=== PATIENT | female | born 1945 | race African-American/Black ===

== ENCOUNTER 2019-12-19 09:14 | Outpatient (CLI) | payer MEDICARE, OTHER, SELFPAY ==
--- NOTE | 2019-12-19 | ECHO_ITS ---
Patient Info Name: Lizy Simmons Age: 74 years : 1945 Gender: Female Ht: 62 in Wt: 200 lbs BSA: 2.04 m2 HR: 85 bpm BP: 156 / 73 mmHg Technical Quality: Fair Exam Date: 12/19/2019 10:15 AM Exam Location: [facility] Patient Status: Outpatient Admit Date: 12/19/2019 Staff Ordering Physician: Abilio Esquivel MD Clinical Documentation Specialist: Danika Hernandez RDCS Attending Provider: Abilio Esquivel MD Referring Physician: Alvin BASILIO; Exam Type: CA echo doppler color flow Study Info Indications I10 - Essential (primary) hypertension Complete two-dimensional, color flow and Doppler transthoracic echocardiogram is performed. Summary 1. Left ventricular chamber dimension is normal. 2. Ventricular septum is sigmoid shaped. 3. Mild resting left ventricular outflow tract obstruction with peak gradient 24 mmHg and mean gradient 14 mmHg. 4. Left ventricular systolic function is normal, estimated at 65-70%. 5. There is mildly increased left ventricular wall thickness. 6. The left ventricular diastolic function is grade I diastolic dysfunction. 7. There is moderate aortic valve sclerosis. 8. There is moderate aortic valve stenosis based on a peak velocity of 333 cm/s, mean gradient of 25 mmHg, and aortic valve area of 2.2 cm2. 9. Mild systolic anterior motion of mitral valve. 10. No pulmonary hypertension, estimated pulmonary arterial systolic pressure is 25 mmHg. 11. There is trace pulmonic regurgitation. Left Ventricle Ventricular septum is sigmoid shaped. Mild resting left ventricular outflow tract obstruction with peak gradient 24 mmHg and mean gradient 14 mmHg. Tissue doppler is not performed. Left ventricular chamber dimension is normal. Left ventricular systolic function is normal, estimated at 65-70%. There is mildly increased left ventricular wall thickness. The left ventricular diastolic function is grade I diastolic dysfunction. Right Ventricle Right ventricular chamber dimension is normal. Right ventricular systolic function is normal. Left Atria Left atrial chamber dimension is normal. Right Atria Right atrial chamber dimension is normal. Aortic Valve There is moderate aortic valve stenosis based on a peak velocity of 333 cm/s, mean gradient of 25 mmHg, and aortic valve area of 2.2 cm2. The aortic valve is trileaflet. There is moderate aortic valve sclerosis. There is no aortic valve regurgitation. Pulmonic Valve There is trace pulmonic regurgitation. Mitral Valve Mild systolic anterior motion of mitral valve. There is no mitral valve stenosis. There is no mitral valve regurgitation. Tricuspid Valve There is no tricuspid valve regurgitation. No pulmonary hypertension, estimated pulmonary arterial systolic pressure is 25 mmHg. Pericardium/Pleural There is no pericardial effusion. Inferior Vena Cava Normal inferior vena cava with >50% collapse upon inspiration consistent with normal right atrial pressure, 5 mmHg. Aorta The aortic root size at the sinus of Valsalva is normal. Left Ventricular Outflow Tract Name Value Normal LVOT 2D LVOT Diameter 1.9 cm LVOT Doppler
--- NOTE | ~2019-12-19 | US_ITS ---
EXAMINATION: US abdomen complete DATE: 12/19/2019 14:06 INDICATION: Hypertension TECHNIQUE: Multiple grayscale and Doppler ultrasound images of the abdomen were obtained. COMPARISON: None available FINDINGS: The head and and body of the pancreas are normal. The pancreatic tail is obscured by bowel gas. The liver is normal with normal echogenicity and echotexture. No surface nodularity. Normal hep atopetal flow in the main portal vein. The gallbladder is normal with no abnormal wall thickening, pe richolecystic fluid or stones. The normal common bile duct measures 7 mm. There was no sonographic Mu rphy sign. The visualized portions of the aorta and inferior vena cava are normal. The right kidney measures 8.6 x 4.7 x 4.4 cm. The left kidney measures 10.0 x 5.6 x 5.2 cm. The kidne ys demonstrate normal parenchymal echogenicity. There is no hydronephrosis. The spleen is normal in a ppearance and measures 7.2 cm. IMPRESSION: 1. No sonographic correlate for the patient's symptoms. Reviewed, dictated and finalized at location B.
== END 2019-12-19 09:15 | disposition home or self-care (01) ==
LOC: ANHIMG 09:22
PROVIDERS: PCP Family Medicine; Visit Provider Family Medicine
DX: I10 Essential (primary) hypertension (principal); I35.1 Nonrheumatic aortic (valve) insufficiency
CPT/HCPCS: 76700; 93306

== ENCOUNTER 2020-03-01 07:41 | Outpatient (CLI) | payer MEDICARE, OTHER, SELFPAY ==
--- NOTE | ~2020-03-01 | CT_ITS ---
EXAMINATION: CTA abdomen DATE: 03/01/2020 08:33 INDICATION: Hypertension. TECHNIQUE: Computed tomographic angiography (CTA) of the abdomen, and pelvis was performed with 100 m L Omnipaque-350 intravenous contrast. Volume-rendered 3D-reconstructions of the aorta and large arter ies were constructed by the technologist on a separate workstation. Automated exposure control and it erative reconstruction technique were employed. The dose-length product was 643 mGy-cm. COMPARISON: None FINDINGS: Mild atelectasis at the lung bases. Mild cardiomegaly. No pericardial or pleural effusion. Liver, gal lbladder, spleen, pancreas, bilateral adrenal glands and kidneys are normal. Postoperative change of prior right hemicolectomy with ileocolic anastomosis. No dilated bowel to suggest obstruction. Mildly prominent portacaval lymph nodes measuring 1.5 and 1.3 similar in maximal short axis diameters. Cecilia re thoracolumbar spondylosis. 40% stenosis at the origin of the superior mesenteric and right renal arteries. There is also 40% rocky nosis at the dominant left renal artery with no stenosis at the smaller more cephalad accessory left renal artery which supplies the anterior left kidney. No significant stenosis at the superior mesente edgard and inferior mesenteric arteries. IMPRESSION: 1. 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 2. Mild cardiomegaly. Reviewed, dictated and finalized at location A. IMPRESSION: 1. 40% stenosis at the superior mesenteric, right renal and larger of the two l eft renal arteries. 2. Mild cardiomegaly.
[2020-03-01 08:18] LABS: Estimated Glomerular Filt Rate 59
== END 2020-03-01 07:42 | disposition home or self-care (01) ==
PROVIDERS: PCP Family Medicine; Visit Provider Family Medicine
DX: I10 Essential (primary) hypertension (principal); I51.7 Cardiomegaly; K55.1 Chronic vascular disorders of intestine
CPT/HCPCS: 36415; 74175; Q9967

== ENCOUNTER 2020-05-12 07:44 | Outpatient (CLI) | payer MEDICARE, OTHER, SELFPAY ==
--- NOTE | ~2020-05-12 | MM_ITS ---
EXAMINATION: MM screening corinne BI w karen HISTORY: Screening TECHNIQUE: Craniocaudal and mediolateral oblique 3-D tomosynthesis images were obtained and synthetic 2-D images were generated. CAD analysis was submitted and interpreted. COMPARISON: Comparison to multiple prior studies sequentially, with oldest reviewed study dated 08/10. BREAST PARENCHYMAL COMPOSITION: There are scattered areas of fibroglandular density. FINDINGS: There is no evidence of suspicious mass, calcification, or architectural distortion to sugg est malignancy in either breast. There has been no suspicious interval change. IMPRESSION: 1. No mammographic evidence of malignancy. 2. Recommend routine screening mammography in one year. BI-RADS Category 1: Negative Reviewed, dictated and finalized at location A.
== END 2020-05-12 07:45 | disposition home or self-care (01) ==
PROVIDERS: PCP Family Medicine; Visit Provider Family Medicine
DX: Z12.31 Encounter for screening mammogram for malignant neoplasm of breast (principal)
CPT/HCPCS: 77063; 77067

== ENCOUNTER 2020-10-14 11:45 | Outpatient (CLI) | payer MEDICARE, OTHER, SELFPAY ==
--- NOTE | ~2020-10-14 | XR_ITS ---
XR lumbar spine 2-3V DATE: 10/14/2020 12:05 INDICATION: Lumbar back pain. No injury. TECHNIQUE: AP, lateral, coned lateral lumbosacral views COMPARISON: 08/08/2012 MRI lumbar spine FINDINGS: Status post right total hip arthroplasty. There is degenerative disc disease throughout the lumbar and lumbosacral spine, most severe at L5-S1 and L2-3. Grade 1 anterolisthesis at L3-4 and L4-5 due to degenerative change at the apophyseal joints. No fracture or bone destruction is evident. The lumbar pedicles are intact. Sacroiliac joints appear normal. IMPRESSION: Severe degenerative disc disease Prominent degenerative change at the apophyseal joints with associated grade 1 anterolisthesis at L3- 4 and L4-5 Status post right hip arthroplasty Reviewed, dictated and finalized at location A. [employer]DLE PLAYER IMPRESSION: Severe degenerative disc disease Prominent degenerative change at the apophyseal joints with associated grade 1 anterolisthesis at L3-4 and L4-5 Status post right hip arthroplasty
== END 2020-10-14 11:46 | disposition home or self-care (01) ==
PROVIDERS: PCP Family Medicine; Visit Provider Nurse Practitioner
DX: M47.817 Spondylosis without myelopathy or radiculopathy, lumbosacral region (principal); Z96.641 Presence of right artificial hip joint
CPT/HCPCS: 72100

== ENCOUNTER → 2020-11-13 01:03 | Outpatient (CLI) | payer MEDICARE, OTHER, SELFPAY ==
[2020-11-13 19:48] LABS: SARS-CoV-2 RNA PCR Negative
== END ==
PROVIDERS: PCP Family Medicine; Visit Provider Internal Medicine Gastroenterology
DX: Z01.812 Encounter for preprocedural laboratory examination (principal); Z20.822 Contact with and (suspected) exposure to COVID-19
CPT/HCPCS: C9803; U0003; U0005

== ENCOUNTER 2020-11-17 00:53 | Day surgery (SDC) | payer MEDICARE, OTHER, SELFPAY ==
[2020-11-04 10:01] VITALS: BMI 35.9
[2020-11-17 10:46] VITALS: BP 150/57; PULSE 78; RESP 20; TEMP 36.4; O2SAT 96; BMI 35.8
[2020-11-17] MEDS: LACTATED RINGERS 1,000 ML 150 ML IV CONT (11:03)
--- NOTE | 2020-11-17 11:09 | WPDANESEPPF ---
Anes - Initial Pre Proc Eval Procedure: Operation Date: 11/17/20 12:00 Proposed Procedures p Colonoscopy - Candido Gill DO Date/Time: 11/17/20 11:09 Surgeon: Candido Gill DO Pre Op Diagnosis: Incontinence of Feces, Hx of Colon Cancer Patient Data Age: 75 Gender: F Height: 5 ft 2 in Weight: 88.9 kg Last Vital Signs Temp 97.5 F L 11/17/20 10:46 Pulse 78 11/17/20 10:46 Resp 20 11/17/20 10:46 BP 150/57 H 11/17/20 10:46 Pulse Ox 96 11/17/20 10:46 Allergies Allergy/AdvReac Type Severity Reaction Status Date / Time No Known Allergies Allergy Verified 11/17/20 10:41 Home Medications Medication Instructions Recorded Confirmed Type Aspir-81 81 mg PO DAILY 11/04/20 11/04/20 History amlodipine 10 mg PO DAILY 11/04/20 11/04/20 History hydrochlorothiazide 12.5 mg PO DAILY 11/04/20 11/04/20 History losartan 100 mg PO DAILY 11/04/20 11/04/20 History metoprolol succinate 25 mg PO DAILY 11/04/20 11/04/20 History trazodone 50 mg PO HS PRN 11/04/20 11/04/20 History Patient hx anesthesia problems: none Family hx anesthesia problems: none PMFSH Past Medical History Medical History (Updated 11/17/20 @ 11:09 by Toni Rodriguez MD) H/O colon cancer, stage I Heart murmur Hypertension Family History Family History (Updated 04/07/16 @ 23:19 by DOCTOR UNKNOWN) Mother Hypertension Family history of diabetes mellitus in first degree relative Family history of malignant neoplasm of bone Father Family history of lung cancer Family history of lung disease Social History Social History Smoking status: Former smoker Second hand tobacco smoke exposure: No Smoking end date: 09/10/80 Alcohol intake: current Living arrangements: with family Gender identity (if verbalized by the patient): Female Spiritual care concerns: No Anes - Eval Final PreProcedure Day of Procedure 11/17/20 11:09 Patient weight: obese Heart: regular rate and rhythm Lungs: clear to auscultation Airway: Mallampati scale class II Neurological: alert and oriented Last oral intake: >/= 8 hours ASA classification: III Emergent: no Anesthetic plan: proceed Anesthesia type and monitoring: general GIVS and standard monitoring Informed Consent: The patient's anesthetic plan and its attendant risks and benefits were discussed with the patient/family/POA. Questions were solicited and answers provided to the satisfaction of the patient/family/POA.
--- NOTE | 2020-11-17 11:47 | WPDGICN ---
GI Consult Note Consult date/time: 11/17/20 11:47 HPI: Reason for visit is colonoscopy. This very pleasant lady seen in consultation at the request of Primary. The patient was examined. Impression: History of colorectal cancer. Status post colectomy and chemotherapy. Adenomatous colon polyps. HTN. Obesity. Neuropathy. Recommendation: Colonoscopy. History: This very pleasant lady has a history of colorectal cancer. She is status post colectomy and chemotherapy. Patient is here for screening and surveillance colonoscopy. She does have a history adenomatous colon polyps. She does report incontinence. She has lower quadrant abdominal discomfort and some right upper quadrant abdominal discomfort. This usually is relieved with defecation. Patient denies any hematochezia, melena or acholic stools. Physical examination: General: very pleasant patient in no acute distress. HEENT: Head was normocephalic sclerae is clear mouth without masses neck was supple. Heart: Rate rhythm regular without S3 or S4.Systolic murmur and reading to the left carotid Lungs: CTA. Abdomen: Soft with no guarding or rigidity. Bowel sounds were active. Neurologic: Cranial nerves 2 through 12 intact. No focal defects. No clonus. Musculoskeletal system: Revealed no joint tenderness or swelling no muscle atrophy. Extremities: Reveal no significant edema. Skin: Warm and dry with normal turgor. Mental status: intact. Patient is alert and oriented. Review of Systems Review of Systems: All systems reviewed & are unremarkable except as noted in HPI and below PMFSH Past Medical History Medical History (Updated 11/17/20 @ 11:09 by Toni Rodriguez MD) H/O colon cancer, stage I Heart murmur Hypertension Family History Family History (Updated 04/07/16 @ 23:19 by DOCTOR UNKNOWN) Mother Hypertension Family history of diabetes mellitus in first degree relative Family history of malignant neoplasm of bone Father Family history of lung cancer Family history of lung disease Social History Social History Smoking status: Former smoker Second hand tobacco smoke exposure: No Smoking end date: 09/10/80 Alcohol intake: current Living arrangements: with family Gender identity (if verbalized by the patient): Female Spiritual care concerns: No Meds Home Medications and Allergies Home Medications Medication Instructions Recorded Confirmed Type Aspir-81 81 mg PO DAILY 11/04/20 11/04/20 History amlodipine 10 mg PO DAILY 11/04/20 11/04/20 History hydrochlorothiazide 12.5 mg PO DAILY 11/04/20 11/04/20 History losartan 100 mg PO DAILY 11/04/20 11/04/20 History metoprolol succinate 25 mg PO DAILY 11/04/20 11/04/20 History trazodone 50 mg PO HS PRN 11/04/20 11/04/20 History Allergies Allergy/AdvReac Type Severity Reaction Status Date / Time No Known Allergies Allergy Verified 11/17/20 10:41 Vital Signs Vital Signs - 24 hr 11/17/20 10:46 Temperature 36.4 C L Pulse Rate 78 Respiratory Rate 20 Blood Pressure 150/57 H Pulse Oximetry 96
[2020-11-17 12:08] VITALS: BP 95/45; PULSE 60; RESP 15; O2SAT 93
[2020-11-17 12:18] VITALS: BP 92/45; PULSE 57; RESP 16; O2SAT 93
[2020-11-17 12:28] VITALS: BP 140/63; PULSE 65; RESP 22; O2SAT 98
== END 2020-11-17 12:57 | disposition home or self-care (01) ==
PROVIDERS: PCP Family Medicine; Visit Provider Internal Medicine Gastroenterology
PROC: 0DJD8ZZ Inspection of Lower Intestinal Tract, Via Natural or Artificial Opening Endoscopic (ICD-10-PCS; CPT 45378; principal; 2020-11-17 12:00)
DX: Z12.11 Encounter for screening for malignant neoplasm of colon (principal); K63.3 Ulcer of intestine; K52.89 Other specified noninfective gastroenteritis and colitis; K64.8 Other hemorrhoids; R15.9 Full incontinence of feces; Z85.038 Personal history of other malignant neoplasm of large intestine; Z92.21 Personal history of antineoplastic chemotherapy; Z90.49 Acquired absence of other specified parts of digestive tract; I10 Essential (primary) hypertension; G62.9 Polyneuropathy, unspecified; E66.9 Obesity, unspecified; Z68.35 Body mass index [BMI] 35.0-35.9, adult; Z87.891 Personal history of nicotine dependence; Z79.82 Long term (current) use of aspirin
CPT/HCPCS: 45380; 88305; J2001; J2704; J7120

== ENCOUNTER 2021-04-29 09:30 | Outpatient (CLI) | payer MEDICARE, OTHER, SELFPAY ==
--- NOTE | ~2021-04-29 | MR_ITS ---
EXAMINATION: MR lumbar spine wo con DATE: 04/29/2021 10:25 INDICATION: Chronic low back pain. TECHNIQUE: Magnetic resonance imaging (MRI) of the lumbar spine was performed without intravenous con trast. Sequences included sagittal T2-weighted FSE, sagittal T2-weighted FS FSE, sagittal T1-weighted FSE, and axial T2-weighted FSE. COMPARISON: Lumbar spine MRI 08/08/2012 FINDINGS: There is 3 degrees levocurvature of lumbar spine. There is 3 mm anterolisthesis of T11 and T12 and L4-L5. Vertebral body heights are normal. There is severely decreased disc height at T11-T12, mildly decreased disc height at L1-L2, moderately decreased disc at L2-L3 and L3-L4, mildly decrease d disc at L4-L5, and severely decreased disc height at L5-S1. The spinal cord demonstrates increased T2-weighted signal intensity at T11-T12, consistent with myelomalacia. The conus medullaris is at L1. The following disc levels are specifically discussed: T11-T12: The disc is bulging and has an annular fissure. There is severe bilateral facet joint osteoa rthritis. There is moderate right and mild left neural foraminal stenosis. There is severe central ca nal stenosis. T12-L1: The disc does not extend beyond the endplate margin. There is severe right and moderate left facet joint osteoarthritis. There is no neural foraminal stenosis. There is no central canal stenosis . L1-L2: The disc is bulging. There is severe bilateral facet joint osteoarthritis. There is mild bilat eral neural foraminal stenosis. There is mild central canal stenosis. L2-L3: The disc is bulging and has an annular fissure. There is severe bilateral facet joint osteoart hritis. There is mild bilateral neural foraminal stenosis. There is mild central canal stenosis. L3-L4: The disc is bulging. There is severe bilateral facet joint osteoarthritis. There is moderate b ilateral neural foraminal stenosis. There is mild central canal stenosis. L4-L5: The disc is bulging. There is severe bilateral facet joint osteoarthritis. There is moderate b ilateral neural foraminal stenosis. There is mild central canal stenosis. L5-S1: The disc is bulging and has an annular fissure. There is severe bilateral facet joint osteoart hritis. There is moderate bilateral neural foraminal stenosis. There is mild central canal stenosis. IMPRESSION: 1. 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 2. Severe lumbar and lower thoracic spondylosis, worsened from 08/08/2012. Reviewed, dictated and finalized at location B.
== END 2021-04-29 09:31 | disposition home or self-care (01) ==
PROVIDERS: PCP Family Medicine; Visit Provider Family Medicine
DX: M47.896 Other spondylosis, lumbar region (principal)
CPT/HCPCS: 72148

== ENCOUNTER 2021-05-19 09:33 | Outpatient (CLI) | payer MEDICARE, OTHER, SELFPAY ==
--- NOTE | ~2021-05-19 | MM_ITS ---
EXAMINATION: MM screening corinne BI w karen HISTORY: Screening mammogram TECHNIQUE: Craniocaudal and mediolateral oblique 3-D tomosynthesis images were obtained and synthetic 2-D images were generated. CAD analysis was submitted and interpreted. COMPARISON: No prior mammogram is available for comparison at this institution. BREAST PARENCHYMAL COMPOSITION: There are scattered areas of fibroglandular density. FINDINGS: Possible new posterior approximately 5 mm and 6.5 mm masses; diagnostic left mammogram is r ecommended, ultrasound if required. Otherwise there is no evidence of suspicious mass, calcification, or architectural distortion to sug gest malignancy in either breast. There has been no suspicious interval change. IMPRESSION: 1. No mammographic evidence of malignancy. 2. Recommend routine screening mammography in one year. BI-RADS Category 0: Incomplete: Needs additional imaging evaluation. Reviewed, dictated and finalized at location A.
== END 2021-05-19 09:34 | disposition home or self-care (01) ==
LOC: ANHIMG 09:39
PROVIDERS: PCP Family Medicine; Visit Provider Family Medicine
DX: Z12.31 Encounter for screening mammogram for malignant neoplasm of breast (principal); R92.8 Other abnormal and inconclusive findings on diagnostic imaging of breast
CPT/HCPCS: 77063; 77067

== ENCOUNTER 2021-06-21 13:14 | Outpatient (CLI) | payer MEDICARE, OTHER, SELFPAY ==
--- NOTE | ~2021-06-21 | MMUS_ITS ---
EXAMINATION: MM diagnostic corinne LT w karen, US breast LT limited HISTORY: Follow-up left breast masses TECHNIQUE: Additional 3-D tomosynthesis images of the left breast were performed and synthetic 2-D im ages were generated. CAD analysis was submitted and interpreted. High resolution Limited left breast ultrasound was performed. COMPARISON: Comparison to multiple prior studies sequentially, with oldest reviewed study dated 09/2017. BREAST PARENCHYMAL COMPOSITION: Breast composed of scattered areas of fibroglandular density. FINDINGS: MAMMOGRAPHIC FINDINGS: There are 2 radiolucent masses in the upper outer quadrant of the left breast, largest measuring 8 mm anteriorly. There are no suspicious calcifications or architectural distortion. ULTRASOUND: Limited left breast ultrasound: At 1:00, 3 cm from the nipple, there is a 9 mm cyst. At 4:00, 7 cm fr om the nipple there is a 5 mm cyst. There are no suspicious masses to suggest malignancy. IMPRESSION: 1. No evidence for malignancy in the left breast. Benign cysts. 2. Routine yearly screening mammogram and regular clinical breast examination are recommended. BI-RADS Category 2: Benign finding(s). Reviewed, dictated and finalized at location A. IMPRESSION: 1. No evidence for malignancy in the left breast. Benign cysts. 2. Routine yearly screening mammogram and regular clinical breast examination a re recommended. BI-RADS Category 2: Benign finding(s).
== END 2021-06-21 13:15 | disposition home or self-care (01) ==
PROVIDERS: PCP Family Medicine; Visit Provider Family Medicine
DX: N60.02 Solitary cyst of left breast (principal)
CPT/HCPCS: 76642; 77061; 77065; G0279

== ENCOUNTER 2022-01-25 11:00 | Outpatient (RCR) | payer MEDICARE, OTHER, SELFPAY ==
[2021-11-04 15:28] VITALS: PULSE 80
== END 2022-01-25 15:05 | disposition home or self-care (01) ==
LOC: ANHCPREHAB 11:00
PROVIDERS: PCP Family Medicine
DX: Z95.2 Presence of prosthetic heart valve (principal)
CPT/HCPCS: 93798

== ENCOUNTER 2022-07-18 12:55 | Inpatient (IN) | payer MEDICARE, OTHER, SELFPAY ==
[2022-07-18] VITALS (28 sets, daily range): BP systolic 103–157; BP diastolic 45–90; PULSE 78–102; RESP 14–30; TEMP 36.3–37.3; O2SAT 97–100
--- NOTE | ~2022-07-18 | XR_ITS ---
EXAMINATION: XR chest 1V portable INDICATION: Fever and weakness TECHNIQUE: Portable AP chest at 1209 hours COMPARISON: 01/15/2014 FINDINGS: The lung volumes are low. There are minimal airspace opacities at the left lung base. The h eart size is upper limits of normal for technique. There is a possible small left pleural effusion. N o pneumothorax is identified. Changes of endovascular aortic valve replacement are noted. IMPRESSION: 1. Minimal left basilar airspace opacities, consistent with small pleural effusion and/or atelectasis versus pneumonia. Reviewed, dictated and finalized at location A. ATION MANAGER IMPRESSION: 1. Minimal left basilar airspace opacities, consistent with small pleural effus ion and/or atelectasis versus pneumonia.
--- NOTE | ~2022-07-18 | XR_ITS ---
EXAMINATION: XR ankle LT 2V DATE: 07/21/2022 10:59 INDICATION: Left ankle pain TECHNIQUE: Two views of the left ankle were obtained. COMPARISON: None. FINDINGS: Two view only examination is limited. There is soft tissue swelling of ankle. The ankle mor tise is intact. A heterotopic ossification projects near the lateral malleolus which could reflect an avulsion injury. Posterior and plantar calcaneal enthesophytes are noted. IMPRESSION: 1. Possible avulsion injury of the lateral malleolus. Reviewed, dictated and finalized at location B. ERTY UTILIZATION OFFICER
--- NOTE | ~2022-07-18 | CT_ITS ---
EXAMINATION: CT cervical spine wo con DATE: 07/18/2022 19:11 INDICATION: fall, neck pain TECHNIQUE: Computed tomography (CT) of the cervical spine was performed without intravenous contrast. Automated exposure control and iterative reconstruction technique were employed. The dose-length pro duct was 445.26 mGy-cm. COMPARISON: None FINDINGS: Vertebral Body Alignment: Intact. Multilevel grade 1 listheses, likely on a degenerative basis. Craniocervical and atlantoaxial alignment: Moderate degenerative change. Alignment intact. Osseous structures/fracture: No evidence of a lytic or blastic process in the visualized spine. No e vidence of acute fracture. Bilateral C2-3 facet fusion. Cervical soft tissues: The paraspinal soft tissues planes are maintained. Mild biapical pleural scarr ing. Atherosclerotic calcifications at the great vessel origins. Degenerative changes: Multilevel severe degenerative disc disease. Multilevel moderate facet arthropa thy. Multilevel severe bilateral neural foraminal narrowing. Severe central canal narrowing at C5-6. 5 mm central disc protrusion at C4-5. IMPRESSION: No acute fracture or traumatic malalignment in the cervical spine. Reviewed, dictated and finalized at location K. /GYN DOCTOR
--- NOTE | ~2022-07-18 | XR_ITS ---
EXAMINATION: XR md joint inject/asp w image DATE: 07/24/2022 10:51 INDICATION: Left ankle pain. TECHNIQUE: A time-out was performed to verify the patient's name, date of , and procedure to b e performed. The procedure including the risks, benefits, and alternatives was discussed with the pat ient. Risks discussed included bleeding and infection. The patient understood the risks and agreed to proceed. The skin overlying the left ankle joint was prepped and draped in usual sterile fashion. Anesthetic was administered with 1% lidocaine subcutaneously. An 18 G needle was advanced under fluo roscopic guidance into the joint. No fluid could be aspirated. Injection of 1 mL of Omnipaque 240 con firmed intra-articular position of the needle. The needle was removed and the entry site was cleaned and dressed. There were no immediate complications. Fluoroscopy exposure time was 0.1 minutes. The t otal number of images was 2. FINDINGS: Real-time fluoroscopy demonstrates the needle in the left ankle joint. IMPRESSION: 1. Fluoroscopy guided left ankle joint aspiration yielding no fluid. Reviewed, dictated and finalized at location A. H WORKER
--- NOTE | ~2022-07-18 | CT_ITS ---
EXAMINATION: CT brain wo con DATE: 07/18/2022 19:10 INDICATION: fall, headache, on anticoagulation . TECHNIQUE: Computed tomography (CT) of the head was performed without intravenous contrast. The mA wa s adjusted according to patient size. Iterative reconstruction technique was employed. The dose-lengt h product was 605.33 mGy-cm. COMPARISON: 11/22/2015 FINDINGS: No acute intracranial hemorrhage or extra-axial fluid collection. No hydrocephalus, mass, or herniation. No acute ischemic infarct. Unremarkable dural venous sinus attenuation. No acute osseous abnormality. The aerated spaces are clear. Mild atrophy and chronic white matter change. Atherosclerotic intracranial calcification. Right lens replacement. IMPRESSION: No acute intracranial process. Reviewed, dictated and finalized at location K. CAR REPAIRMAN
--- NOTE | ~2022-07-18 | CT_ITS ---
EXAMINATION: CT thoracic lumbar wo con DATE: 07/18/2022 19:11 INDICATION: back pain, fall . TECHNIQUE: Computed tomography (CT) of the thoracic and lumbar spine was performed without intravenou s contrast. The dose-length product was 1058.18 mGy-cm. COMPARISON: MR lumbar spine/ FINDINGS: THORACIC SPINE: Vertebral body alignment intact. Minimal anterolisthesis at T11-12 likely on a degenerative basis. Mi ld thoracic scoliosis. Vertebral body heights preserved. Multilevel degenerative disc disease. No tra umatic malalignment or fracture. Visualized lung parenchyma is clear. Atherosclerotic arterial calcif ications. Aortic valve replacement. Senescent changes in the lungs. LUMBAR SPINE: Mild lumbar scoliosis. 5 nonrib-bearing lumbar-type vertebral bodies. Pedicles intact. Grade 1 juan antonio listhesis at L4-5, likely on a degenerative basis. Vertebral body heights preserved. Multilevel sever e degenerative disc disease. Multilevel severe facet arthropathy. Severe bilateral neural foraminal n arrowing at L5-S1. Moderate central canal stenosis at L3-4 and L4-5. 7 mm exophytic right upper pole kidney lesion that is too small to characterize. Partially visualized anastomotic suture line in the bowel. Partial fusion of the left SI joint IMPRESSION: No acute fracture or traumatic malalignment detected in the thoracic or lumbar spine. Reviewed, dictated and finalized at location K. MENTUM CONSULTANT
--- NOTE | 2022-07-18 17:23 | ECG_ITS ---
Measurements Intervals [place] Rate: 84 P: 74 MO: 201 QRS: 23 QRSD: 94 T: 33 QT: 220 QTc: 260 Interpretive Statements SINUS RHYTHM DELAYED PRECORDIAL R/S TRANSITION BASELINE ARTIFACT- I, II, AVR, V4, V6 BORDERLINE ECG NO PREVIOUS ECG AVAILABLE FOR COMPARISON Electronically Signed On 07-18-2022 19:25:19 [employer] by Avi Steel D.O.
--- NOTE | 2022-07-18 17:28 | ED.FALL ---
HPI - Fall General Chief Complaint: Fall <Mandy Willis PA-C - Last Filed: 07/19/22 17:43> Stated Complaint: diarrhea, headache <Mandy Willis PA-C - Last Filed: 07/19/22 17:43> Time Seen by Provider: 07/18/22 17:08 <Mandy Willis PA-C - Last Filed: 07/19/22 17:43> Source: patient and family <FRANCE De Luna Last Filed: 07/19/22 17:43> Mode of arrival: wheelchair <FRANCE De Luna Last Filed: 07/19/22 17:43> Limitations: no limitations <FRANCE De Luna Last Filed: 07/19/22 17:43> History of Present Illness HPI Narrative: This is a 77 year old female that presents to the ER after a fall 3 days ago with worsening of her chronic low back pain. Reports she follows with a neurosurgeon at [place]. She had a ground-level fall 3 days ago. Reports she slipped and fell trying to get out of bed. She does not think that she hit her head or lost consciousness. She is on anticoagulation. Reports since the fall she has had worsening weakness and pain in her legs. She also follows with a chest pain coordinator in [place]. Also reports she has had chronic diarrhea. Today she did report some dark stools though. She has been incontinent of stool, although this is not new since the fall. Denies fever, chest pain, shortness of breath, vomiting, dysuria, or bladder incontinence. <Mandy Willis PA-C - Last Filed: 07/19/22 17:43> Related Data Home Medications: Home Medications Medication Instructions Recorded Confirmed Aspir-81 81 mg PO DAILY 11/04/20 07/19/22 amlodipine 10 mg tablet 10 mg PO DAILY 11/04/20 07/19/22 losartan 100 mg tablet 50 mg PO DAILY 11/04/20 07/19/22 metoprolol succinate 25 mg 25 mg PO DAILY 11/04/20 07/19/22 tablet,extended release 24 hr acetaminophen 500 mg tablet 1,000 mg PO Q6H PRN Pain 11/04/21 07/19/22 apixaban 5 mg tablet 5 mg PO BID 11/04/21 07/19/22 cholecalciferol (vitamin D3) 50 50 mcg PO DAILY 11/04/21 07/19/22 mcg (2,000 unit) capsule <Mandy Willis PA-C - Last Filed: 07/19/22 17:43> Allergies/Adverse Reactions: Allergies Allergy/AdvReac Type Severity Reaction Status Date / Time amiodarone Allergy Unknown Cough Verified 07/20/22 12:29 <Mandy Willis PA-C - Last Filed: 07/19/22 17:43> Review of Systems Review of Systems: CONSTITUTIONAL: Denies fever EYES: Denies visual changes CARDIOVASCULAR: Denies chest pain, or edema. RESPIRATORY: Denies dyspnea. GASTROINTESTINAL: Reports diarrhea. Denies current abdominal pain, nausea, vomiting GENITOURINARY: Denies dysuria or hematuria. SKIN: Denies rash MUSCULOSKELETAL: Reports back pain, joint pain, and myalgia. NEUROLOGIC: Reports headache. Denies numbness, or weakness. PSYCHIATRIC: Denies anxiety or depression. <Mandy Willis PA-C - Last Filed: 07/19/22 17:43> All systems reviewed & are unremarkable except as noted in HPI and below <Mandy Willis PA-C - Last Filed: 07/19/22 17:43> [facility] Past Medical History Medical History: Medical History H/O colon cancer, stage I Heart murmur Hx of intermediate school teacher use of blood thinners Hypertension <Mandy Willis PA-C - Last Filed: 07/19/22 17:43> Surgical History Surgical History: Surgical History History of colon resection History of heart valve replacement <Mandy Willis PA-C - Last Filed: 07/19/22 17:43> Family History Family History: Family History Mother Hypertension Family history of diabetes mellitus in first degree relative Family history of malignant neoplasm of bone Father Family history of lung cancer Family history of lung disease <Mandy Willis PA-C - Last Filed: 07/19/22 17:43> Social History Social History: Social History Sm
[2022-07-18 18:22] LABS: Basophils Percent Auto 0.3 % (0.2-1.2); Eosinophils Absolute Auto 0.2 K/mm3 (0-0.3); Eosinophils Percent Auto 1.6 % (0-4.4); Immature Granulocyte Absolute 0.04 K/mm3 (0.00-0.031); Immature Granulocyte Percent A 0.4 % (0-0.5); Lymphocytes Absolute Auto 2.21 K/mm3 (0.9-3.2); Lymphocytes Percent Auto 20.6 % (18.3-44.2); Mean Corpuscular HGB Conc 27.6 g/dl (32-36); Mean Corpuscular Hemoglobin 19.8 pg (26-34); Mean Corpuscular Volume 71.7 fl (80-100); Mean Platelet Volume 9.6 fl (7.4-10.4); Monocytes Absolute Auto 1.3 K/mm3 (0.1-0.6); Monocytes Percent Auto 11.6 % (2.6-8.5); Neutrophils Absolute Auto 7.1 K/mm3 (1.3-6.7); Neutrophils Percent Auto 65.5 % (45.5-73.1); Nucleated Red Blood Cells Perc 0.3 % (0.0-0.2); Platelet Count Result 461 k/mm3 (150-375); Red Blood Count 2.83 M/mm3 (4.2-5.4); White Blood Count 10.8 K/mm3 (4.5-10.0)
[2022-07-18 18:31] LABS: Alanine Aminotransferase 21 U/L (6-35); Albumin Level 4.1 g/dL (3.5-5.1); Alkaline Phosphatase 98 U/L (38-126); Anion Gap 14 mmol/L (8-16); Aspartate Amino Transferase 22 U/L (14-36); Bilirubin,Total 0.3 mg/dL (0.2-1.3); Blood Urea Nitrogen 20 mg/dL (7-17); Carbon Dioxide 21 mmol/L (22-30); Chloride 96 mmol/L (98-107); Estimated CRCL calculation 37 ml/min; Estimated Glomerular Filt Rate 58; Glucose 105 mg/dL (65-110); Lipase 56 U/L (23-300); Potassium 3.5 mmol/L (3.4-5.0); Sodium 131 mmol/L (137-145)
[2022-07-18 18:32] LABS: INR 1.6; Prothrombin Time 18.5 Seconds (11.1-14.7)
[2022-07-18 18:33] LABS: Partial Thromboplastin Time 29.3 SECONDS (22.3-36.8)
[2022-07-18 19:18] LABS: Hematocrit 20.3 % (37.0-47.0); Hemoglobin 5.6 g/dL (12.0-15.0)
[2022-07-18 19:19] LABS: Platelet Estimate Increased (Adequate)
[2022-07-18 19:20] LABS: Anisocytosis 2+ (NORMAL); Hypochromasia 2+ (NORMAL); Schistocytes None Seen (NORMAL)
[2022-07-18 19:44] LABS: Appearance Urine Clear (Clear); Bilirubin Urine Negative (Negative); Blood Urine Negative (Negative); Color Urine Yellow (Yellow); Glucose Urine UA Negative (Negative); Ketones Urine Negative (Negative); Leukocyte Esterase Ur Negative LEU/UL (Negative); Nitrate Urine Negative (Negative); Protein Urine Negative (Negative); Specific Grav Ur <= 1.005 (1.001-1.035); Urobilinogen Urine 0.2 mg/dL (<2.0); pH Urine 5.5 (5.0-9.0)
[2022-07-18 20:13] LABS: RBC Urine 0-2 /hpf (0-2); WBC Urine 0-3 /hpf
[2022-07-18 20:14] LABS: Add Urine Microscopic? NO
[2022-07-18 20:33] LABS: SARS-CoV-2 RNA PCR Negative
--- NOTE | 2022-07-18 20:53 | PM.IMHP ---
H&P: HPI History of Present Illness Date/Time: 07/18/22 20:53 Chief Complaint: generalized weakness Narrative: This is a 77-year-old female with past medical history significant atrial fibrillation, rate control and anticoagulated, bioprosthetic valve replacement, Obesity. Patient presents to the emergency room due to generalized weakness, shortness of breath, palpitations, lightheadedness, patient had a fall with no loss of consciousness has been having tarry color stools for the last several days, denies any bright red blood per rectum, hematemesis, coffee-ground emesis, no chest pain, no PND, no orthopnea, has had bilateral lower extremity swelling. preliminary workup was significant for hemoglobin of 5.6 hematocrit of 20. in emergency room patient was found to be orthostatic as well. patient has been admitted for further evaluation management and treatment. Review of Systems Review of Systems: Falls, generalized weakness, shortness of breath, palpitations. Constitutional: Constitutional: Denies chills, Reports fatigue, Denies fever(s), Reports lethargy, Denies malaise, Denies night sweats, Reports poor appetite and Reports weakness Eyes: Eyes: Denies change in vision ENT: Denies dysphagia, Denies vertigo, Denies dizziness and Denies odynophagia Cardiovascular: Cardiovascular: Denies chest pain, Denies syncope, Denies irregular heart rhythm, Reports leg edema, Reports lightheadedness, Reports palpitations and Reports dyspnea Respiratory: Respiratory: Denies cough Gastrointestinal: Gastrointestinal: Denies abdominal pain, Reports melena, Denies dyspepsia, Denies heartburn, Denies diarrhea, Denies nausea and Denies vomiting Genitourinary: Genitourinary: Denies dysuria Musculoskeletal: Musculoskeletal: Denies back pain, Denies myalgias, Denies joint swelling, Denies limited range of motion and Reports muscle weakness Integumentary/Breasts: Skin/Breast: Denies rash Neurologic: Denies focal weakness and Denies Sensory deficit (Neuro) Psychiatric: Psychiatric: Reports no additional psychiatric complaints and Reports as per HPI Endocrine: Endocrine: Denies cold intolerance, Denies flushing, Denies heat intolerance, Denies polyphagia, Denies polydipsia and Denies palpitations Hematologic/Lymphatic: Hematologic/Lymphatic: Reports no additional hematologic/lymphatic complaints and Reports as per HPI Allergic/Immunologic: Allergic/Immunologic: Reports no additional allergic/immunologic complaints and Reports as per HPI [facility] Past Medical History Medical History (Updated 07/19/22 @ 02:04 by Boris Houston MD) H/O colon cancer, stage I Heart murmur Hypertension Surgical History Surgical History (Updated 07/18/22 @ 17:33 by Mandy Willis PA-C) History of colon resection History of heart valve replacement Family History Family History Mother Hypertension Family history of diabetes mellitus in first degree relative Family history of malignant neoplasm of bone Father Family history of lung cancer Family history of lung disease Social History Social History Smoking packs per day: 0.3 Smoking cigarettes per day: 6.0 Years smoked: 20 Smoking pack-years: 6.00 Smoking status: Former smoker Tobacco type: cigarettes Second hand tobacco smoke exposure: No Smoking end date: 09/10/80 Alcohol intake: never Substance use: never Lack of Transportation: No Lack of Food: Never True Current Housing: I Have Housing Concerned About Future Housing: No Difficulty Paying Gas/Electric Bills: No Difficulty Paying for Meds: No Currently Unemployed: No Education: Don't Know Difficulty w/ Childcare or Family Care: No Gender identity (if verbalized by the patient): Female Spiritual care concerns: No Meds Home Medications and Allergies Home Medications Medication Instructions Recorded Confirmed Type Aspir-81 81
[2022-07-18] MEDS: SODIUM CHLORIDE 0.9% IV 250 ML 30 ML IV CONT (22:07)
[2022-07-19] VITALS (12 sets, daily range): BP systolic 125–147; BP diastolic 42–64; PULSE 70–87; RESP 16–81; TEMP 36.8–37.7; O2SAT 18–100; BMI 37.3
--- NOTE | 2022-07-19 00:34 | PC.NURSE ---
This patient, Lizy Simmons, was admitted to Medical Room 341-01. Patient/family oriented to hospital policies and general routines including ID bracelet, bed and alarms, visiting hours, pain management, procedures, bathroom and other care routines, personal items, smoking policy, room service/diet, and visiting hours. Information on how to activate the Rapid Response Team has been discussed. Patient/Family are encouraged to report perceived risks to care and to ask questions if they do not understand what they are told or what they should do. First unit of blood completed in ER and second unit started after admission completed.
[2022-07-19 06:28] LABS: Basophils Absolute Auto 0.1 K/mm3 (0.0-0.1); Basophils Percent Auto 0.4 % (0.2-1.2); Eosinophils Absolute Auto 0.3 K/mm3 (0-0.3); Eosinophils Percent Auto 2.1 % (0-4.4); Hematocrit 27.7 % (37.0-47.0); Hemoglobin 8.4 g/dL (12.0-15.0); Immature Granulocyte Absolute 0.06 K/mm3 (0.00-0.031); Immature Granulocyte Percent A 0.5 % (0-0.5); Lymphocytes Absolute Auto 1.64 K/mm3 (0.9-3.2); Lymphocytes Percent Auto 13.9 % (18.3-44.2); Mean Corpuscular HGB Conc 30.3 g/dl (32-36); Mean Corpuscular Hemoglobin 22.6 pg (26-34); Mean Corpuscular Volume 74.7 fl (80-100); Mean Platelet Volume 9.8 fl (7.4-10.4); Monocytes Absolute Auto 1.2 K/mm3 (0.1-0.6); Monocytes Percent Auto 10.2 % (2.6-8.5); Neutrophils Absolute Auto 8.6 K/mm3 (1.3-6.7); Neutrophils Percent Auto 72.9 % (45.5-73.1); Nucleated Red Blood Cells Perc 0.2 % (0.0-0.2); Platelet Count Result 444 k/mm3 (150-375); Red Blood Count 3.71 M/mm3 (4.2-5.4); Red Cell Distribution Width 22.6 % (11.5-14.5); White Blood Count 11.8 K/mm3 (4.5-10.0)
[2022-07-19] MEDS: PANTOPRAZOLE SODIUM IV 40 MG VIAL IV PUSH ×2 (07:59→20:56)
[2022-07-19 08:11] LABS: Anisocytosis 1+ (NORMAL); Hypochromasia 1+ (NORMAL); Platelet Estimate Increased (Adequate); Poikilocytosis 1+ (NORMAL)
[2022-07-19] MEDS: SODIUM CHLORIDE 0.9% IV 1,000 ML 80 ML IV CONT ×2 (09:59→20:57)
[2022-07-19 10:58] LABS: Schistocytes None Seen (NORMAL)
--- NOTE | 2022-07-19 12:01 | PM.IMPN ---
Progress Note: A&P Assessment and Plan (1) Acute GI bleeding: Code(s): K92.2 - Gastrointestinal hemorrhage, unspecified Status: Acute Assessment and Plan: Sp blood transfusion Serial hb/ hct Hb today improved to 8 PPI IV BID IV Fluids Awaiting to see GI MD for possible scope Hold anticoagulation (2) Hypertension: Code(s): I10 - Essential (primary) hypertension Status: Acute Assessment and Plan: Fluid hydration Daily orthostatics Hold BP meds today (3) Atrial fibrillation: Code(s): I48.91 - Unspecified atrial fibrillation Status: Acute Assessment and Plan: AF is rate controlled Holding anticoagulation due to GI bleed (4) Fall: Code(s): W19.XXXA - Unspecified fall, initial encounter Status: Acute Assessment and Plan: PT/ OT to regain confidence No obvious injuries noted (5) Spinal stenosis: Qualifiers: Neurogenic claudication status: with neurogenic claudication Spinal region: lumbar Qualified Code(s): M48.062 - Spinal stenosis, lumbar region with neurogenic claudication Code(s): M48.00 - Spinal stenosis, site unspecified Status: Acute Assessment and Plan: Follow-up in the outpatient setting Patient sees neurosurgeon following up (6) Urinary retention: Code(s): R33.9 - Retention of urine, unspecified Status: Acute Assessment and Plan: Status post Agudelo placement (7) Acute blood loss anemia: Code(s): D62 - Acute posthemorrhagic anemia Status: Acute Assessment and Plan: Acute blood loss anaemia Transfuse as needed continue to monitor H&H Subjective Date/time seen: 07/19/22 12:01 77-year-old female with past medical history significant atrial fibrillation, rate control and anticoagulated, bioprosthetic valve replacement,? ? Obesity.??admitted with gi bleed, hb of 5 on admission improved to 8 sp blood transfusion Awaiting to see GI doctor Review of Systems Review of Systems: Sob weakness fatigue Black tarry stools Exam Const: General: comfortable, no acute distress, well developed, alert, awake and average body habitus Nutritional Appearance: average body habitus Orientation/consciousness: patient oriented x3 Other: Generalized weakness Resp: Effort & Inspection: normal respiratory effort and able to speak in complete sentences Auscultation: clear to auscultation bilaterally Cardio: Jugular venous distension: no JVD Rate: regular rate Rhythm: regular rhythm Heart sounds: S1 normal heart sound present and S2 normal heart sound present Neuro: Motor exam (neuro): 5/5 motor strength present throughout Objective Data Vital Signs Vital Signs: Vital Signs - 24 hr 07/18/22 13:15 07/18/22 17:23 07/18/22 17:32 Temperature 36.9 C 36.7 C Pulse Rate 78 82 87 Respiratory Rate 18 20 18 Blood Pressure 103/90 157/86 H Pulse Oximetry 97 97 98 Oxygen Delivery 07/18/22 17:53 07/18/22 17:54 07/18/22 18:09 Temperature Pulse Rate 83 82 82 Respiratory Rate 20 18 20 Blood Pressure 139/59 L Pulse Oximetry 98 99 98 Oxygen Delivery 07/18/22 19:25 07/18/22 18:25 07/18/22 18:30 Temperature 36.6 C 36.3 C L Pulse Rate 91 84 85 Respiratory Rate 18 20 20 Blood Pressure 138/58 L 136/58 L Pulse Oximetry 98 98 Oxygen Delivery 07/18/22 18:46 07/18/22 21:59 07/18/22 19:29 Temperature 37.3 C Pulse Rate 82 86 86 Respiratory Rate 18 30 H 20 Blood Pressure 145/48 H Pulse Oximetry 99 100 Oxygen Delivery 07/18/22 19:30 07/18/22 19:31 07/18/22 19:45 Temperature Pulse Rate 86 84 87 Respiratory Rate 26 H 22 H 22 H Blood Pressure 128/48 L 131/57 L Pulse Oximetry 99 99 100 Oxygen Delivery 07/18/22 19:46 07/18/22 20:10 07/18/22 20:15 Temperature Pulse Rate 86 87 88 Respiratory Rate 27 H 27 H 14 Blood Pressure 132/45 L Pulse Oximetry 100 99 100 Oxygen Delivery 07/18/22 20:16
[2022-07-19] MEDS: ACETAMINOPHEN 325 MG TABLET 650 MG PO (12:03)
[2022-07-19] MEDS: METOPROLOL SUCCINATE EXT REL 25 MG TABCR PO (14:14)
[2022-07-19] MEDS: amLODIPine BESYLATE 5 MG TABLET 10 MG PO (14:14)
--- NOTE | 2022-07-19 16:23 | WPDGICN ---
Assessment and Plan Assessment and plan (1) Acute blood loss anemia: Code(s): D62 - Acute posthemorrhagic anemia Status: Acute Assessment and Plan: will proceed with egd and colonoscopy tomorrow to assess if source of blood loss (she had remote colon cancer with last colonoscopy 2020) also h/o vaginal bleeding months ago holding eliquis (2) Acute GI bleeding: Code(s): K92.2 - Gastrointestinal hemorrhage, unspecified Status: Acute Assessment and Plan: assess with scopes (3) History of colon resection: Code(s): Z90.49 - Acquired absence of other specified parts of digestive tract Status: Acute (4) H/O colon cancer, stage I: Code(s): Z85.038 - Personal history of other malignant neoplasm of large intestine Status: Acute (5) Atrial fibrillation: Code(s): I48.91 - Unspecified atrial fibrillation Status: Acute Assessment and Plan: blood thinner on hold (6) 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 She is here with generalized weakness, shortness of breath on exertion, palpitations, lightheadedness and then had a fall with no loss of consciousness. No overt GIB, denies using nsaid's. She had colonoscopy 11/2020, with evidence of Rt hemicolectomy (remote history of colon cancer)- by Dr Gill. She was found to have significant anemia with hemoglobin of 5.6 hematocrit of 20, BUN 20, microcytosis. Review of Systems Review of Systems: Falls, generalized weakness, shortness of breath, palpitations. Constitutional: Constitutional: Denies chills, Reports fatigue, Denies fever(s), Reports lethargy, Denies malaise, Denies night sweats, Reports poor appetite and Reports weakness Eyes: Eyes: Denies change in vision ENT: Denies dysphagia, Denies vertigo, Denies dizziness and Denies odynophagia Cardiovascular: Cardiovascular: Denies chest pain, Denies syncope, Denies irregular heart rhythm, Reports leg edema, Reports lightheadedness, Reports palpitations and Reports dyspnea Respiratory: Respiratory: Denies cough Gastrointestinal: Gastrointestinal: Denies abdominal pain, Reports melena, Denies dyspepsia, Denies heartburn, Denies diarrhea, Denies nausea and Denies vomiting Genitourinary: Genitourinary: Denies dysuria Musculoskeletal: Musculoskeletal: Denies back pain, Denies myalgias, Denies joint swelling, Denies limited range of motion and Reports muscle weakness Integumentary/Breasts: Skin/Breast: Denies rash Neurologic: Denies focal weakness and Denies Sensory deficit (Neuro) Psychiatric: Psychiatric: Reports no additional psychiatric complaints and Reports as per HPI Endocrine: Endocrine: Denies cold intolerance, Denies flushing, Denies heat intolerance, Denies polyphagia, Denies polydipsia and Denies palpitations Hematologic/Lymphatic: Hematologic/Lymphatic: Reports no additional hematologic/lymphatic complaints and Reports as per HPI Allergic/Immunologic: Allergic/Immunologic: Reports no additional allergic/immunologic complaints and Reports as per HPI PMFSH Past Medical History Medical History (Updated 07/19/22 @ 16:28 by Eliud Moser MD) H/O colon cancer, stage I Heart murmur Hx of prison use of blood thinners Hypertension Surgical History Surgical History (Updated 07/19/22 @ 16:28 by Eliud Moser MD) History of colon resection History of heart valve replacement Family History Family History (Reviewed 11/04/21 @ 15:11 by
[2022-07-19] MEDS: BISACODYL 5 MG TABLET EC 20 MG PO (17:51)
[2022-07-19] MEDS: polyethylene glycoL 3350 238 GM BOTTLE PO (18:01)
[2022-07-19] MEDS: AMITRIPTYLINE HCL 25 MG TABLET PO (20:56)
[2022-07-20] VITALS (15 sets, daily range): BP systolic 113–164; BP diastolic 43–80; PULSE 57–88; RESP 18–30; TEMP 36.2–37.2; O2SAT 92–100
[2022-07-20 06:49] LABS: Hematocrit 26.3 % (37.0-47.0); Hemoglobin 7.9 g/dL (12.0-15.0); Mean Corpuscular Volume 76.5 fl (80-100); Mean Platelet Volume 9.3 fl (7.4-10.4); Platelet Count Result 431 k/mm3 (150-375); Red Blood Count 3.44 M/mm3 (4.2-5.4); Red Cell Distribution Width 22.3 % (11.5-14.5); White Blood Count 10.6 K/mm3 (4.5-10.0)
[2022-07-20 07:01] LABS: Anion Gap 9 mmol/L (8-16); Blood Urea Nitrogen 9 mg/dL (7-17); Calcium 8.5 mg/dL (8.4-10.2); Carbon Dioxide 19 mmol/L (22-30); Chloride 106 mmol/L (98-107); Estimated CRCL calculation 45 ml/min; Estimated Glomerular Filt Rate > 60; Glucose 99 mg/dL (65-110); Potassium 3.7 mmol/L (3.4-5.0); Sodium 134 mmol/L (137-145)
[2022-07-20] MEDS: METOPROLOL SUCCINATE EXT REL 25 MG TABCR PO (08:16)
[2022-07-20] MEDS: amLODIPine BESYLATE 5 MG TABLET 10 MG PO (08:17)
[2022-07-20] MEDS: PANTOPRAZOLE SODIUM IV 40 MG VIAL IV PUSH (08:17)
[2022-07-20] MEDS: ACETAMINOPHEN 325 MG TABLET 650 MG PO (10:47)
--- NOTE | 2022-07-20 11:50 | PM.IMPN ---
Progress Note: A&P Assessment and Plan (1) Acute GI bleeding: Code(s): K92.2 - Gastrointestinal hemorrhage, unspecified Status: Acute Assessment and Plan: Sp blood transfusion Serial hb/ hct PPI IV BID GI consulted. Patient going for EGD colonoscopy today Hold anticoagulation (2) Hypertension: Code(s): I10 - Essential (primary) hypertension Status: Acute Assessment and Plan: continue home meds (3) Atrial fibrillation: Code(s): I48.91 - Unspecified atrial fibrillation Status: Acute Assessment and Plan: AF is rate controlled Holding anticoagulation due to GI bleed (4) Fall: Code(s): W19.XXXA - Unspecified fall, initial encounter Status: Acute Assessment and Plan: PT/ OT (5) Spinal stenosis: Qualifiers: Neurogenic claudication status: with neurogenic claudication Spinal region: lumbar Qualified Code(s): M48.062 - Spinal stenosis, lumbar region with neurogenic claudication Code(s): M48.00 - Spinal stenosis, site unspecified Status: Acute Assessment and Plan: Follow-up in the outpatient setting Patient sees neurosurgeon following up (6) Urinary retention: Code(s): R33.9 - Retention of urine, unspecified Status: Acute Assessment and Plan: Status post Agudelo placement (7) Acute blood loss anemia: Code(s): D62 - Acute posthemorrhagic anemia Status: Acute Assessment and Plan: Acute blood loss anaemia Transfuse as needed continue to monitor H&H Subjective Date/time seen: 07/20/22 11:50 No issues at this time. Feels tired Review of Systems Review of Systems: Falls, generalized weakness, shortness of breath, palpitations. Constitutional: Constitutional: Denies chills, Reports fatigue, Denies fever(s), Reports lethargy, Denies malaise, Denies night sweats, Reports poor appetite and Reports weakness Eyes: Eyes: Denies change in vision ENT: Denies dysphagia, Denies vertigo, Denies dizziness and Denies odynophagia Cardiovascular: Cardiovascular: Denies chest pain, Denies syncope, Denies irregular heart rhythm, Reports leg edema, Reports lightheadedness, Reports palpitations and Reports dyspnea Respiratory: Respiratory: Denies cough Gastrointestinal: Gastrointestinal: Denies abdominal pain, Reports melena, Denies dyspepsia, Denies heartburn, Denies diarrhea, Denies nausea and Denies vomiting Genitourinary: Genitourinary: Denies dysuria Musculoskeletal: Musculoskeletal: Denies back pain, Denies myalgias, Denies joint swelling, Denies limited range of motion and Reports muscle weakness Integumentary/Breasts: Skin/Breast: Denies rash Neurologic: Denies focal weakness and Denies Sensory deficit (Neuro) Psychiatric: Psychiatric: Reports no additional psychiatric complaints and Reports as per HPI Endocrine: Endocrine: Denies cold intolerance, Denies flushing, Denies heat intolerance, Denies polyphagia, Denies polydipsia and Denies palpitations Hematologic/Lymphatic: Hematologic/Lymphatic: Reports no additional hematologic/lymphatic complaints and Reports as per HPI Allergic/Immunologic: Allergic/Immunologic: Reports no additional allergic/immunologic complaints and Reports as per HPI Exam Const: General: comfortable, no acute distress, well developed, alert, awake and average body habitus Nutritional Appearance: average body habitus Orientation/consciousness: patient oriented x3 Other: Generalized weakness HENMT: Face/Nose/Sinus: Normal nares present Eyes: General: appearance normal, both eyes and all related structures Neck: Neck: supple Resp: Effort & Inspection: normal respiratory effort and able to speak in complete sentences Auscultation: clear to auscultation bilaterally Cardio: Jugular venous distension: no JVD Rate: regular rate Rhythm: regular rhythm Heart sounds: S1 normal heart sound present and S2 normal heart sound present GI
--- NOTE | 2022-07-20 12:11 | PC.NURSE ---
To GI Lab per SUE peña. Report given to Guera .
[2022-07-20] MEDS: LACTATED RINGERS 1,000 ML 150 ML IV CONT (12:25)
[2022-07-20] MEDS: GENTAMICIN 80MG/SOD CHL 50 ML 80 MG/50 ML BAG 100 MG IVPB (12:28)
--- NOTE | 2022-07-20 12:38 | WPDANESEPPF ---
Anes - Initial Pre Proc Eval Procedure: Operation Date: 07/20/22 12:45 Proposed Procedures p Esophagogastroduodenoscopy & Colonoscopy - Eliud Moser MD Date/Time: 07/20/22 12:38 Surgeon: Alonzo Alvarado MD Pre Op Diagnosis: GI Bleed Patient Data Age: 77 Gender: F Height: 1.55 m Weight: 89.7 kg Last Vital Signs Temp 97.3 F L 07/20/22 12:30 Pulse 83 07/20/22 12:30 Resp 18 07/20/22 12:30 BP 132/50 L 07/20/22 12:30 Pulse Ox 97 07/20/22 12:30 O2 Del Method Room Air 07/20/22 12:30 Allergies Allergy/AdvReac Type Severity Reaction Status Date / Time amiodarone Allergy Unknown Cough Verified 07/20/22 12:29 Home Medications Medication Instructions Recorded Confirmed Type Aspir-81 81 mg PO DAILY 11/04/20 07/19/22 History amlodipine 10 mg tablet 10 mg PO DAILY 11/04/20 07/19/22 History losartan 100 mg tablet 50 mg PO DAILY 11/04/20 07/19/22 History metoprolol succinate 25 mg 25 mg PO DAILY 11/04/20 07/19/22 History tablet,extended release 24 hr acetaminophen 500 mg tablet 1,000 mg PO Q6H PRN Pain 11/04/21 07/19/22 History amitriptyline 25 mg tablet 25 mg PO HS 11/04/21 07/19/22 History apixaban 5 mg tablet 5 mg PO BID 11/04/21 07/19/22 History cholecalciferol (vitamin D3) 50 50 mcg PO DAILY 11/04/21 07/19/22 History mcg (2,000 unit) capsule Laboratory Tests 07/20/22 07/20/22 06:26 06:26 WBC 10.6 K/mm3 H K/mm3 (4.5-10.0) RBC 3.44 M/mm3 L M/mm3 (4.2-5.4) Hgb 7.9 g/dL L g/dL (12.0-15.0) Hct 26.3 % L % (37.0-47.0) MCV 76.5 fl L fl (80-100) MCH 23.0 pg L pg (26-34) MCHC 30.0 g/dl L g/dl (32-36) RDW 22.3 % H % (11.5-14.5) Plt Count 431 k/mm3 H k/mm3 (150-375) MPV 9.3 fl fl (7.4-10.4) Sodium 134 mmol/L L mmol/L (137-145) Potassium 3.7 mmol/L mmol/L (3.4-5.0) Chloride 106 mmol/L mmol/L (98-107) Carbon Dioxide 19 mmol/L L mmol/L (22-30) Anion Gap 9 mmol/L mmol/L (8-16) BUN 9 mg/dL D mg/dL (7-17) Creatinine 0.90 mg/dL mg/dL (0.7-1.0) Estim Creat Clear Calc 45 ml/min ml/min Estimated GFR > 60 (59 - ) Glucose 99 mg/dL mg/dL (65-110) Calcium 8.5 mg/dL mg/dL (8.4-10.2) Patient hx anesthesia problems: none Family hx anesthesia problems: none Results Review: All pre-operative results and documents have been reviewed as part of the pre-operative evaluation. [facility] Past Medical History Medical History (Updated 07/19/22 @ 16:28 by Eliud Moser MD) H/O colon cancer, stage I Heart murmur Hx of prison use of blood thinners Hypertension Surgical History Surgical History (Updated 07/19/22 @ 16:28 by Eliud Moser MD) History of colon resection History of heart valve replacement Family History Family History Mother Hypertension Family history of diabetes mellitus in first degree relative Family history of malignant neoplasm of bone Father Family history of lung cancer Family history of lung disease Social History Social History Smoking packs per day: 0.3 Smoking cigarettes per day: 6.0 Years smoked: 20 Smoking pack-years: 6.00 Smoking status: Former smoker Tobacco type: cigarettes Second hand tobacco smoke exposure: No Smoking end date: 09/10/80 Alcohol intake: never Substance use: never Lack of Transportation: No Lack of Food: Never True Current Housing: I Have Housing Concerned About Future Housing: No Difficulty Paying Gas/Electric Bills: No Difficulty Paying for Meds: No Currently Unemployed: No Education: Don't Know Difficulty w/ Childcare or Family Care: No Gender identity (if verbalized by the patient): Female Spiritual care concerns: No Anes - Eval Final PreProcedure Day of Procedure 07/20/22 12:38 Patient weight
[2022-07-20] MEDS: AMPICILLIN 2 GM/NS 100 ML 2 GM/100 ML BAG IVPB (12:48)
--- NOTE | 2022-07-20 13:56 | SUR.OPER ---
EGD: [id number] COLON: [id number]
--- NOTE | 2022-07-20 15:01 | PC.NURSE ---
Returned from GI Lab. Report received from Briana
--- NOTE | 2022-07-20 20:37 | PC.NURSE ---
PT STATES THAT SHE USUALLY USE A WALKER/CANE FOR MOBILITY. CURRENTLY A TWO ASSIST WITH DEXTER OROZCO FOR ORTHOSTATIC BPS.
[2022-07-20] MEDS: SODIUM CHLORIDE 0.9% IV 1,000 ML 80 ML IV CONT (20:48)
[2022-07-20] MEDS: AMITRIPTYLINE HCL 25 MG TABLET PO (20:48)
[2022-07-21] VITALS (9 sets, daily range): BP systolic 134–174; BP diastolic 41–58; PULSE 95–103; RESP 16–18; TEMP 36.2–39.3; O2SAT 93–96
[2022-07-21] MEDS: ACETAMINOPHEN 325 MG TABLET 650 MG PO ×2 (05:31→19:45)
--- NOTE | 2022-07-21 07:30 | WPDANESPN ---
Anes - Prog Note Post-Op Date/Time: 07/21/22 07:30 Cardiovascular status: other (Anemia) Respiratory status: normal Airway patency: baseline Mental status: baseline Post-Op hydration status: normal Vital Signs: Last Vital Signs Temp 97.5 F L 07/21/22 03:49 Pulse 96 07/21/22 03:49 Resp 18 07/21/22 03:49 BP 174/48 H 07/21/22 03:49 Pulse Ox 93 07/21/22 03:49 O2 Del Method Room Air 07/20/22 20:00 O2 Flow Rate 4 07/20/22 14:32 Pain Score (VAS): 0/10 I/O: Intake & Output 07/20/22 07/20/22 07/21/22 15:59 23:59 07:59 Intake Total 1000 240 490 Output Total 700 600 Balance 1000 -460 -110 Laboratory Tests 07/20/22 06:26 07/20/22 06:26 Post-procedural complaints: none Patient Feedback: Patient satisfied with anesthetic care.
[2022-07-21] MEDS: amLODIPine BESYLATE 5 MG TABLET 10 MG PO (08:30)
[2022-07-21] MEDS: METOPROLOL SUCCINATE EXT REL 25 MG TABCR PO (08:30)
[2022-07-21] MEDS: PANTOPRAZOLE 40 MG TABLET PO (08:30)
--- NOTE | 2022-07-21 09:48 | PCOTNOTE ---
Addendum entered by JODY Peck 07/21/22 11:09: Patient in bed, per family, Patients and daughter, Patient complaining of increased pain in Right great toe and Left heel pain. Therapist took a look at both and Right toe dies look swollen and reddened. RN is aware. Patient's Left heel looks good no discoloration/bruising. Patient did complain of increased Left ankle pain with palpation. Patient's ankle is swollen and very tender. RN notified and is going to contact doctor for an x-ray. Per RN, wait until results are given before attempting to work with Patient. Original Note: Attempted to see Patient this A.M.
--- NOTE | 2022-07-21 11:26 | PM.IMPN ---
Progress Note: A&P Assessment and Plan (1) Acute GI bleeding: Code(s): K92.2 - Gastrointestinal hemorrhage, unspecified Status: Acute Assessment and Plan: Sp blood transfusion Serial hb/ hct PPI IV BID GI consulted. Patient going for EGD colonoscopy today Hold anticoagulation (2) Hypertension: Code(s): I10 - Essential (primary) hypertension Status: Acute Assessment and Plan: continue home meds (3) Atrial fibrillation: Code(s): I48.91 - Unspecified atrial fibrillation Status: Acute Assessment and Plan: AF is rate controlled Holding anticoagulation due to GI bleed (4) Fall: Code(s): W19.XXXA - Unspecified fall, initial encounter Status: Acute Assessment and Plan: PT/ OT (5) Spinal stenosis: Qualifiers: Neurogenic claudication status: with neurogenic claudication Spinal region: lumbar Qualified Code(s): M48.062 - Spinal stenosis, lumbar region with neurogenic claudication Code(s): M48.00 - Spinal stenosis, site unspecified Status: Acute Assessment and Plan: Follow-up in the outpatient setting Patient sees neurosurgeon following up (6) Urinary retention: Code(s): R33.9 - Retention of urine, unspecified Status: Acute Assessment and Plan: Status post Agudelo placement (7) Acute blood loss anemia: Code(s): D62 - Acute posthemorrhagic anemia Status: Acute Assessment and Plan: Acute blood loss anaemia Transfuse as needed continue to monitor H&H (8) Right ankle pain: Code(s): M25.571 - Pain in right ankle and joints of right foot Status: Acute Assessment and Plan: will order x-ray and consult ortho if needed Subjective Date/time seen: 07/21/22 11:26 Patient was seen during the morning rounds today. No new overnight complaints. No shortness of breath or chest pain. No abdominal pain, nausea, no vomiting. Patient has pain in her right ankle. Review of Systems Constitutional: Constitutional: Denies chills, Reports fatigue, Denies fever(s), Reports lethargy, Denies malaise, Denies night sweats, Reports poor appetite and Reports weakness Eyes: Eyes: Denies change in vision ENT: Denies dysphagia, Denies vertigo, Denies dizziness and Denies odynophagia Cardiovascular: Cardiovascular: Denies chest pain, Denies syncope, Denies irregular heart rhythm, Reports leg edema, Reports lightheadedness, Denies palpitations and Reports dyspnea Respiratory: Respiratory: Denies cough and Reports dyspnea Gastrointestinal: Gastrointestinal: Denies abdominal pain, Reports melena, Denies dysphagia, Denies dyspepsia, Denies heartburn, Denies diarrhea, Denies nausea, Denies odynophagia and Denies vomiting Genitourinary: Genitourinary: Denies dysuria Musculoskeletal: Musculoskeletal: Denies back pain, Denies myalgias, Denies joint swelling, Denies limited range of motion and Reports muscle weakness Integumentary/Breasts: Skin/Breast: Denies rash Neurologic: Denies vertigo, Denies dizziness, Denies syncope, Denies focal weakness, Denies Sensory deficit (Neuro) and Reports weakness Psychiatric: Psychiatric: Reports no additional psychiatric complaints and Reports as per HPI Endocrine: Endocrine: Denies cold intolerance, Reports fatigue, Denies flushing, Denies heat intolerance, Denies polyphagia, Denies polydipsia and Denies palpitations Hematologic/Lymphatic: Hematologic/Lymphatic: Reports no additional hematologic/lymphatic complaints and Reports as per HPI Allergic/Immunologic: Allergic/Immunologic: Reports no additional allergic/immunologic complaints and Reports as per HPI Exam Narrative: Patient is laying in a stretcher Const: General: comfortable, no acute distress, well developed, alert, awake and average body habitus Nutritional Appearance: average body habitus Orientation/consciousness: patient oriented x3 Other: Generalized weakness H
--- NOTE | 2022-07-21 11:41 | PCOTNOTE ---
Per X-ray report, Patient has a possible avulsion injury to the lateral malleolus of Left ankle. Per RN, contacting ortho and will follow up from there. Per RN, hold off from treatment until further discussions.
[2022-07-21] MEDS: AMITRIPTYLINE HCL 25 MG TABLET PO (20:33)
--- NOTE | 2022-07-21 21:26 | PC.NURSE ---
Called spouse to update on patient fever, which is trending down. He was satisfied with the attention and prompt care of patients needs.
[2022-07-22 05:21] VITALS: BP 128/52; PULSE 89; RESP 18; TEMP 37.5; O2SAT 95
[2022-07-22 06:05] LABS: Hematocrit 24.8 % (37.0-47.0); Hemoglobin 7.5 g/dL (12.0-15.0); Mean Corpuscular HGB Conc 30.2 g/dl (32-36); Mean Corpuscular Hemoglobin 22.5 pg (26-34); Mean Corpuscular Volume 74.5 fl (80-100); Platelet Count Result 394 k/mm3 (150-375); Red Blood Count 3.33 M/mm3 (4.2-5.4); Red Cell Distribution Width 22.6 % (11.5-14.5)
[2022-07-22 06:20] LABS: Alanine Aminotransferase 16 U/L (6-35); Albumin Level 3.2 g/dL (3.5-5.1); Alkaline Phosphatase 77 U/L (38-126); Anion Gap 10 mmol/L (8-16); Aspartate Amino Transferase 19 U/L (14-36); Bilirubin,Total 0.4 mg/dL (0.2-1.3); Blood Urea Nitrogen 8 mg/dL (7-17); Calcium 8.6 mg/dL (8.4-10.2); Carbon Dioxide 19 mmol/L (22-30); Chloride 104 mmol/L (98-107); Estimated CRCL calculation 45 ml/min; Estimated Glomerular Filt Rate > 60; Glucose 104 mg/dL (65-110); Potassium 3.7 mmol/L (3.4-5.0); Sodium 133 mmol/L (137-145)
[2022-07-22 08:17] VITALS: BP 145/56; PULSE 94; RESP 16; TEMP 37.5; O2SAT 97
[2022-07-22 08:21] VITALS: PULSE 78
[2022-07-22] MEDS: PANTOPRAZOLE 40 MG TABLET PO (08:21)
[2022-07-22] MEDS: METOPROLOL SUCCINATE EXT REL 25 MG TABCR PO (08:21)
[2022-07-22] MEDS: amLODIPine BESYLATE 5 MG TABLET 10 MG PO (08:21)
--- NOTE | 2022-07-22 08:27 | PCPTNOTE ---
Patient had X-ray showing possible avulsion fx of the ankle. Will hold on patient until ortho sees her and we get okay from them with new weightbearing orders if any. Nursing aware.
--- NOTE | 2022-07-22 09:55 | PM.IMPN ---
Progress Note: A&P Assessment and Plan (1) Fever: Code(s): R50.9 - Fever, unspecified Status: Acute Assessment and Plan: patient developed fevers overnight to 102. No other symptoms to suggest etiology. WBC higher at 15K. Consider atelectasis although felt less likely. Right foot erythema noted and could be the source although this this appears to be more likely to be gout. Will check cultures. Check chest x-ray. Check for COVID and influenza. hold on abx. (2) Acute GI bleeding: Code(s): K92.2 - Gastrointestinal hemorrhage, unspecified Status: Acute Assessment and Plan: Hgb 5.4 on admission. Rectal exam in ED was hemoccult positive. Sp blood transfusion [id number]. [place] showing internal hemorroids o/w normal. 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 Anticoagulation remains on hold. Plan to resume anticoagulation after 7 days. Continue Protonix. Appreciate GI input (3) Left ankle pain: Code(s): M25.572 - Pain in left ankle and joints of left foot Status: Acute Assessment and Plan: patient with left ankle pain. X-ray showing possible avulsion injury to the lateral malleolus. Orthopedics has been consulted. (4) Acute blood loss anemia: Code(s): D62 - Acute posthemorrhagic anemia Status: Acute Assessment and Plan: Patient was anemic with guaiac-positive stool. [place] to have acute blood loss anemia. Unclear on her baseline hemoglobin since no recent hemoglobin values available. Hemoglobin climbed 8.4 after 2 units but has trended down to 7.5 now. Continue to check hemoglobin and transfuse as necessary. Add iron. (5) Urinary retention: Code(s): R33.9 - Retention of urine, unspecified Status: Acute Assessment and Plan: Patient noted to have urine retention the emergency room. This could be related to her spinal stenosis. Agudelo catheter has been placed. Continue Agudelo catheter at this time but will try voiding trial prior to discharge. (6) Fall: Code(s): W19.XXXA - Unspecified fall, initial encounter Status: Acute Assessment and Plan: Patient states she normally walks Using a cane or walker. PT and OT has been ordered. Increase activity as she tolerates. (7) Atrial fibrillation: Code(s): I48.91 - Unspecified atrial fibrillation Status: Acute Assessment and Plan: AF is rate controlled. EKG on admission showed normal sinus rhythm. Probably paroxysmal atrial fibrillation. Continue Toprol. Holding anticoagulation due to GI bleed. (8) Hypertension: Code(s): I10 - Essential (primary) hypertension Status: Acute Assessment and Plan: Patient's blood pressure was reviewed on 07/22 Blood pressure reasonable Will continue current medications. (9) Spinal stenosis: Qualifiers: Neurogenic claudication status: with neurogenic claudication Spinal region: lumbar Qualified Code(s): M48.062 - Spinal stenosis, lumbar region with neurogenic claudication Code(s): M48.00 - Spinal stenosis, site unspecified Status: Acute Assessment and Plan: Follow-up in the outpatient setting Patient sees neurosurgeon following up Continue PT/OT Subjective Date/time seen: 07/22/22 09:55 Interval history: 77yo female with AFib, HTN and hx of bioprostetic valve replacement here for weakness. She has chronic diarrhea and noted dark stools. She was noted to have urine retention in the ED and Agudelo placed. She was noted to anemia as well. Assuming care. Chart reviewed. Patient states she has actually not had a bowel movement since admission (although she did have bowel prep). She has a cough but this is chronic. She denies any myalgias. No nausea or vomiting. She still has the Agudelo catheter in place. She did have fever overnight. No abdominal pain. She does complain of right 1st MTP pain and redness. No history
--- NOTE | 2022-07-22 11:15 | PC.NURSE ---
Called physical therapy to let them know that patient now has a weight bearing status per Dr. Young and is able to work with therapy.
[2022-07-22] MEDS: FERROUS SULFATE 324 MG TABLET PO ×2 (11:21→17:24)
[2022-07-22 11:50] LABS: Procalcitonin 0.9 ng/mL
--- NOTE | 2022-07-22 11:57 | PM.CNOR ---
Assessment and Plan Assessment and plan (1) Joint swelling: Code(s): M25.40 - Effusion, unspecified joint Status: Acute Plan 77-year-old female with acute onset left ankle and right hallux MTP joint pain and swelling. This is most likely gout. We will send for left ankle aspiration. Hallux MTP joint is erythematous and so no aspiration will be done of that. Will also check uric acid level. Thank you for the consultation. Following. History of Present Illness HPI Consult date: 07/22/22 Consult reason: joint pain ( left ankle pain) Chief complaint: GI Bleed Narrative: This document created with [id number] technology and is subject to tester operator helper irregularities. 77-year-old female who is admitted with GI bleed during the course of her hospitalization she developed left ankle and now right great toe pain. No history of gout. No problems like this in the past. Did have a fall while getting out of bed at home prior to admission however she said her ankles and feet did not bother her then. Does use a gait aid on a regular basis. Lives at home with her significant other. Review of Systems Constitutional: Constitutional: Reports no additional constitutional complaints and Denies excessive sweating Eyes: Eyes: Reports no additional eye complaints ENT: Reports system reviewed and no additional complaints, except as documented Cardiovascular: Cardiovascular: Denies chest pain at rest Respiratory: Respiratory: Reports no additional respiratory complaints and Denies dyspnea Gastrointestinal: Gastrointestinal: Reports no additional gastrointestinal complaints Genitourinary: Genitourinary: Denies dysuria Musculoskeletal: Musculoskeletal: Reports as per HPI Neurologic: Reports as per HPI Psychiatric: Psychiatric: Reports no additional psychiatric complaints and Reports as per HPI Hematologic/Lymphatic: Hematologic/Lymphatic: Reports easy bleeding ( On blood thinners) Allergic/Immunologic: Allergic/Immunologic: Reports as per HPI PMFSH Past Medical History Medical History H/O colon cancer, stage I Heart murmur Hx of shelter use of blood thinners Hypertension Surgical History Surgical History History of colon resection History of heart valve replacement Family History Family History Mother Hypertension Family history of diabetes mellitus in first degree relative Family history of malignant neoplasm of bone Father Family history of lung cancer Family history of lung disease Social History Social History Smoking packs per day: 0.3 Smoking cigarettes per day: 6.0 Years smoked: 20 Smoking pack-years: 6.00 Smoking status: Former smoker Tobacco type: cigarettes Second hand tobacco smoke exposure: No Smoking end date: 09/10/80 Alcohol intake: never Substance use: never Lack of Transportation: No Lack of Food: Never True Current Housing: I Have Housing Concerned About Future Housing: No Difficulty Paying Gas/Electric Bills: No Difficulty Paying for Meds: No Currently Unemployed: No Education: Don't Know Difficulty w/ Childcare or Family Care: No Gender identity (if verbalized by the patient): Female Spiritual care concerns: No Meds Home Medications and Allergies Home Medications Medication Instructions Recorded Confirmed Type Aspir-81 81 mg PO DAILY 11/04/20 07/19/22 History amlodipine 10 mg tablet 10 mg PO DAILY 11/04/20 07/19/22 History losartan 100 mg tablet 50 mg PO DAILY 11/04/20 07/19/22 History metoprolol succinate 25 mg 25 mg PO DAILY 11/04/20 07/19/22 History tablet,extended release 24 hr acetaminophen 500 mg tablet 1,000 mg PO Q6H PRN Pain 11/04/21 07/19/22 History amitriptyline 25 mg tablet 25 mg PO HS
[2022-07-22 12:00] LABS: CRP 22.6 mg/dL (<1.0); Uric Acid 6.9 mg/dL (2.5-7.5)
[2022-07-22 12:18] LABS: Influenza A QL RT-PCR Negative (Negative); Influenza B QL RT-PCR Negative (Negative); RSV RNA, RT-PCR Negative (Negative); SARS-CoV-2 RNA PCR Negative
--- NOTE | 2022-07-22 12:30 | PC.NURSE ---
Spoke with main lab regarding patient's lactic acid. Lactic acid was not drawn at the same time as other labs. Main lab stated they will tel impregnator operator, as I tried to call impregnator operator and could not get through to anyone
[2022-07-22] MEDS: ACETAMINOPHEN 325 MG TABLET 650 MG PO ×2 (13:27→21:31)
[2022-07-22 13:55] LABS: Mucus Urine Rare /lpf; RBC Urine 0-2 /hpf (0-2); Squamous Epithelial Cell Urine Rare /hpf (Few); WBC Urine 0-3 /hpf
[2022-07-22 13:57] LABS: Add Urine Microscopic? YES; Appearance Urine Clear (Clear); Bilirubin Urine Negative (Negative); Blood Urine Negative (Negative); Color Urine Yellow (Yellow); Glucose Urine UA Negative (Negative); Ketones Urine Negative (Negative); Leukocyte Esterase Ur Negative LEU/UL (Negative); Nitrate Urine Negative (Negative); Protein Urine 1+ mg/dL (Negative); Specific Grav Ur >= 1.030 (1.001-1.035); Urobilinogen Urine 0.2 mg/dL (<2.0)
--- NOTE | 2022-07-22 17:29 | PC.NURSE ---
Spoke with someone in main lab again about patient's lactic acid that needs to be drawn. Still unable to reach anyone on [employer] as far as bookkeeping clerks supervisor. Main lab states they will let bookkeeping clerks supervisor know.
[2022-07-22 18:54] LABS: Lactic Acid Reflex 0.8 mmol/L (0.7-2.0)
[2022-07-22 21:17] VITALS: BP 150/55; PULSE 87; RESP 20; TEMP 37.4; O2SAT 95
[2022-07-22] MEDS: AMITRIPTYLINE HCL 25 MG TABLET PO (21:22)
[2022-07-22 21:24] VITALS: BP 155/60
[2022-07-23] MEDS: MELATONIN 5 MG TABLET PO (00:28)
[2022-07-23 05:30] VITALS: BP 144/75; PULSE 79; RESP 16; TEMP 36.4; O2SAT 96
[2022-07-23 05:50] LABS: Basophils Percent Auto 0.2 % (0.2-1.2); Eosinophils Absolute Auto 0.3 K/mm3 (0-0.3); Eosinophils Percent Auto 2.5 % (0-4.4); Hematocrit 24.6 % (37.0-47.0); Hemoglobin 7.4 g/dL (12.0-15.0); Immature Granulocyte Absolute 0.06 K/mm3 (0.00-0.031); Immature Granulocyte Percent A 0.5 % (0-0.5); Lymphocytes Absolute Auto 1.25 K/mm3 (0.9-3.2); Lymphocytes Percent Auto 11.1 % (18.3-44.2); Mean Corpuscular HGB Conc 30.1 g/dl (32-36); Mean Corpuscular Hemoglobin 22.8 pg (26-34); Mean Corpuscular Volume 75.7 fl (80-100); Mean Platelet Volume 9.2 fl (7.4-10.4); Monocytes Absolute Auto 1.1 K/mm3 (0.1-0.6); Monocytes Percent Auto 9.6 % (2.6-8.5); Neutrophils Absolute Auto 8.6 K/mm3 (1.3-6.7); Neutrophils Percent Auto 76.1 % (45.5-73.1); Platelet Count Result 395 k/mm3 (150-375); Red Blood Count 3.25 M/mm3 (4.2-5.4); Red Cell Distribution Width 22.6 % (11.5-14.5); White Blood Count 11.2 K/mm3 (4.5-10.0)
[2022-07-23 06:02] LABS: Anion Gap 11 mmol/L (8-16); Blood Urea Nitrogen 11 mg/dL (7-17); Calcium 8.4 mg/dL (8.4-10.2); Carbon Dioxide 20 mmol/L (22-30); Chloride 103 mmol/L (98-107); Estimated CRCL calculation 45 ml/min; Estimated Glomerular Filt Rate > 60; Glucose 147 mg/dL (65-110); Magnesium 1.9 mg/dL (1.6-2.3); Phosphorus 2.9 mg/dL (2.5-4.5); Potassium 3.5 mmol/L (3.4-5.0); Sodium 134 mmol/L (137-145)
[2022-07-23 07:19] LABS: Anisocytosis 1+ (NORMAL); Hypochromasia 1+ (NORMAL); Platelet Estimate Adequate (Adequate); Poikilocytosis 1+ (NORMAL)
[2022-07-23 07:44] LABS: Schistocytes None Seen (NORMAL)
[2022-07-23 08:36] VITALS: BP 141/54; PULSE 95; RESP 17; O2SAT 95
[2022-07-23] MEDS: FERROUS SULFATE 324 MG TABLET PO ×2 (08:37→18:29)
[2022-07-23] MEDS: amLODIPine BESYLATE 5 MG TABLET 10 MG PO (08:37)
[2022-07-23] MEDS: NAPROXEN 500 MG TABLET PO ×2 (08:37→18:29)
[2022-07-23 08:38] VITALS: PULSE 92
[2022-07-23] MEDS: PANTOPRAZOLE 40 MG TABLET PO (08:38)
[2022-07-23] MEDS: METOPROLOL SUCCINATE EXT REL 25 MG TABCR PO (08:38)
--- NOTE | 2022-07-23 15:16 | PM.IMPN ---
Progress Note: A&P Assessment and Plan (1) Fever: Code(s): R50.9 - Fever, unspecified Status: Acute Assessment and Plan: Patient developed fevers to 102. No other symptoms to suggest etiology. WBC was higher at 15K but better now. CXR showing lefat basilar airspace disease suspect atelectasis. Influenza/COVID/RSV negative. UA clear. BCx NGTD. Procal 0.9 and CRP 22. Abx on hold. Will follow (2) Acute GI bleeding: Code(s): K92.2 - Gastrointestinal hemorrhage, unspecified Status: Acute Assessment and Plan: Hgb 5.4 on admission. Rectal exam in ED was hemoccult positive. Sp blood transfusion [id number]. Hgb up to 7.4 and stable. [place] showing internal hemorroids o/w normal. 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 Anticoagulation remains on hold. Plan to resume anticoagulation after 7 days. Continue Protonix. Appreciate GI input (3) Left ankle pain: Code(s): M25.572 - Pain in left ankle and joints of left foot Status: Acute Assessment and Plan: Patient with left ankle pain. X-ray showing possible avulsion injury to the lateral malleolus but not felt patient has fracture per ortho. Discussed. [place] that her right MTP and left ankle related to gout. Uric acid 6.9. Naproxen started. Orthopedics following and appreciate their input. (4) Acute blood loss anemia: Code(s): D62 - Acute posthemorrhagic anemia Status: Acute Assessment and Plan: Patient was anemic with guaiac-positive stool. [place] to have acute blood loss anemia. Unclear on her baseline hemoglobin since no recent hemoglobin values available. Hemoglobin climbed 8.4 after 2 units but has trended down to 7 range and remianing stable. Continue to monitor and transfuse as necessary. Continue iron. (5) Urinary retention: Code(s): R33.9 - Retention of urine, unspecified Status: Acute Assessment and Plan: Patient noted to have urine retention the emergency room. This could be related to her spinal stenosis. Agudelo catheter has been placed. Continue Agudelo catheter at this time but will try voiding trial prior to discharge. (6) Fall: Code(s): W19.XXXA - Unspecified fall, initial encounter Status: Acute Assessment and Plan: Patient states she normally walks using a cane or walker. Continue PT and OT. Increase activity as she tolerates. (7) Atrial fibrillation: Code(s): I48.91 - Unspecified atrial fibrillation Status: Acute Assessment and Plan: AF is rate controlled. EKG on admission showed normal sinus rhythm. Probably paroxysmal atrial fibrillation. Continue Toprol. Holding anticoagulation due to GI bleed. (8) Hypertension: Code(s): I10 - Essential (primary) hypertension Status: Acute Assessment and Plan: Patient's blood pressure was reviewed on 07/23 Blood pressure elevated at times but overall reasonable Will continue current medications. (9) Spinal stenosis: Qualifiers: Neurogenic claudication status: with neurogenic claudication Spinal region: lumbar Qualified Code(s): M48.062 - Spinal stenosis, lumbar region with neurogenic claudication Code(s): M48.00 - Spinal stenosis, site unspecified Status: Acute Assessment and Plan: Patient follows with neurosurgeon. Follow-up in the outpatient. Continue PT/OT Subjective Date/time seen: 07/23/22 15:16 Interval history: 77yo female with AFib, HTN and hx of bioprostetic valve replacement here for weakness. She has chronic diarrhea and noted dark stools. She was noted to have urine retention in the ED and Agudelo placed. She was noted to anemia as well. No fevers overnight. No issues overnight. She slept okay. Foot and ankle pain better today. No CP. No SOB. No n/v. Exam Narrative: AF 97.6 141/54 92 17 95% ra Gen - NARD Chest - clear anteriorly and in the flanks CV - RRR S1/S2 Abd - Soft, NT/ND, Po
[2022-07-23 16:00] VITALS: BP 131/46; PULSE 77; RESP 14; TEMP 36.3; O2SAT 96
[2022-07-23 20:00] VITALS: BP 141/55
[2022-07-23] MEDS: AMITRIPTYLINE HCL 25 MG TABLET PO (21:05)
[2022-07-23 21:48] VITALS: BP 141/55; PULSE 78; RESP 18; TEMP 36.8; O2SAT 98
[2022-07-24 05:51] LABS: Hematocrit 24.4 % (37.0-47.0); Hemoglobin 7.4 g/dL (12.0-15.0); Mean Corpuscular HGB Conc 30.3 g/dl (32-36); Mean Corpuscular Hemoglobin 22.9 pg (26-34); Mean Corpuscular Volume 75.5 fl (80-100); Mean Platelet Volume 8.9 fl (7.4-10.4); Platelet Count Result 469 k/mm3 (150-375); Red Blood Count 3.23 M/mm3 (4.2-5.4); Red Cell Distribution Width 22.4 % (11.5-14.5); White Blood Count 11.8 K/mm3 (4.5-10.0)
[2022-07-24 06:00] VITALS: BP 148/84; PULSE 78; RESP 16; TEMP 36.8; O2SAT 100
[2022-07-24 06:08] LABS: Anion Gap 9 mmol/L (8-16); Blood Urea Nitrogen 16 mg/dL (7-17); Calcium 8.3 mg/dL (8.4-10.2); Carbon Dioxide 22 mmol/L (22-30); Chloride 105 mmol/L (98-107); Estimated CRCL calculation 45 ml/min; Estimated Glomerular Filt Rate > 60; Glucose 106 mg/dL (65-110); Potassium 3.8 mmol/L (3.4-5.0); Sodium 136 mmol/L (137-145)
[2022-07-24 08:39] VITALS: PULSE 78
[2022-07-24] MEDS: amLODIPine BESYLATE 5 MG TABLET 10 MG PO (08:39)
[2022-07-24] MEDS: FERROUS SULFATE 324 MG TABLET PO ×2 (08:39→17:10)
[2022-07-24] MEDS: PANTOPRAZOLE 40 MG TABLET PO (08:39)
[2022-07-24] MEDS: METOPROLOL SUCCINATE EXT REL 25 MG TABCR PO (08:39)
[2022-07-24] MEDS: NAPROXEN 500 MG TABLET PO ×2 (08:39→17:10)
[2022-07-24 14:00] VITALS: BP 120/50; PULSE 70; RESP 16; TEMP 37; O2SAT 97
[2022-07-24 14:50] VITALS: BP 126/56
--- NOTE | 2022-07-24 15:46 | PM.PNORT ---
Progress Note: A&P Assessment and Plan (1) Joint swelling: Code(s): M25.40 - Effusion, unspecified joint Status: Acute (2) Left ankle pain: Code(s): M25.572 - Pain in left ankle and joints of left foot Status: Acute Plan Left ankle pain and swelling with no apparent trauma. She still has mild pain with mobilization of the ankle. Xrays shows possible avulsion injury but this does appear chronic. Although UA was WNL most likely diagnosis is still gout. Unable to aspirate fluid from joint so we will not have a definitive diagnosis for this. I did inform her that she will likely want to consult with a corporate analyst if symptoms persist. Continue Naproxen. Subjective Subjective Date/Time Seen: 07/24/22 15:46 Principal diagnosis: left ankle pain and swelling Interval history: 77-year-old female who is admitted with acute GI bleeding developed left ankle and right great toe pain with no apparent injury.? She denies hx of gout. Uric acid level was normal during admission. She did have a fall while getting out of bed at home prior to admission but states she did not roll or twist the ankle at that time. She did have a fever a couple of days ago with elevated WBC but this has since resolved. She continues to have generalized foot pain. Attempted ankle aspiration today was unable to produce any fluid for cytology. Review of Systems Review of Systems: All systems reviewed & are unremarkable except as noted in HPI and below Musculoskeletal: Musculoskeletal: Reports arthralgias (left ankle) and Reports joint swelling (left ankle) Exam Const: General: comfortable and no acute distress Resp: Effort & Inspection: normal respiratory effort Extrem: Other: Exam of left ankle demonstrates limited active ROM due to global foot pain. Erythema in the 1st MTP joint has continued to improve. There is tenderness to the lateral malleolus with palpation. Calves negative, neurovascular status LLE intact. Psych: Mental Status: mental status grossly normal Radiology Reports: Comments: EXAMINATION: XR ankle LT 2V DATE: 07/21/2022 10:59 INDICATION: Left ankle pain TECHNIQUE: Two views of the left ankle were obtained. COMPARISON: None. FINDINGS: Two view only examination is limited. There is soft tissue swelling of ankle. The ankle mortise is intact. A heterotopic ossification projects near the lateral malleolus which could reflect an avulsion injury. Posterior and plantar calcaneal enthesophytes are noted. IMPRESSION: 1. Possible avulsion injury of the lateral malleolus. Ankle X-Ray 07/21/22 Lumbar Spine X-Ray 10/14/20 Lumbar Spine MRI 04/29/21 Objective Data Vital Signs Vital Signs: Vital Signs - 24 hr 07/23/22 16:00 07/23/22 20:00 07/23/22 21:48 Temperature 97.3 F L 98.2 F Pulse Rate 77 78 Respiratory Rate 14 18 Blood Pressure 131/46 L 141/55 H 141/55 H Pulse Oximetry 96 98 Oxygen Delivery 07/24/22 06:00 07/24/22 08:39 07/24/22 08:30 Temperature 98.2 F Pulse Rate 78 78 Respiratory Rate 16 Blood Pressure 148/84 H Pulse Oximetry 100 Oxygen Delivery Room Air 07/24/22 14:00 07/24/22 14:00 07/24/22 14:50 Temperature 98.6 F Pulse Rate 70 Respiratory Rate 16 Blood Pressure 120/50 L 120/50 L 126/56 L Pulse Oximetry 97 Oxygen Delivery Intake/Output Intake/Output: Intake & Output 07/21/22 07/22/22 07/23/22 07/24/22 23:59 23:59 23:59 23:59 Intake Total 7383 184 7866 470 Output Total 1500 1300 1350 400 Balance -410 -440 -230 70 Meds/Results Medications: Active Medications Generic Name Dose Route Start Last Admin Trade Name Freq PRN Reason Stop Dose Admin Acetaminophen 650 mg 07/19/22 11:51 07/22/22 21:31 Acetaminophen 325 Mg Tablet PO 650 mg Q6H PRN Administration Mild Pain (1-3) or Fever Amitriptyline HCl 25 mg 07/19/22 21:00 07/23/22 21:05 Amitriptyline Hcl 25 Mg Tablet PO 25 mg HS FIDEL Admi
--- NOTE | 2022-07-24 17:13 | PM.IMPN ---
Progress Note: A&P Assessment and Plan (1) Fever: Code(s): R50.9 - Fever, unspecified Status: Acute Assessment and Plan: Patient developed fevers to 102. No other symptoms to suggest etiology. WBC was higher at 15K but better now. CXR showing left basilar airspace disease suspect atelectasis. Influenza/COVID/RSV negative. UA clear. BCx NGTD. Procal 0.9 and CRP 22. Abx on hold. No recurrence of fever. Will follow (2) Acute GI bleeding: Code(s): K92.2 - Gastrointestinal hemorrhage, unspecified Status: Acute Assessment and Plan: Hgb 5.4 on admission. Rectal exam in ED was hemoccult positive. S/P blood transfusion x2 units. Hgb up to 7.4 and stable. Bates showing internal hemorrhoids o/w normal. 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 Anticoagulation remains on hold. Plan to resume anticoagulation after 7 days from cauterization. Continue Protonix. Appreciate GI input (3) Left ankle pain: Code(s): M25.572 - Pain in left ankle and joints of left foot Status: Acute Assessment and Plan: Patient with left ankle pain. X-ray showing possible avulsion injury to the lateral malleolus but not felt patient has fracture per ortho. [place] that her right MTP and left ankle related to gout. Uric acid 6.9. Naproxen started with benefits. Unable to asparate fluid from the left ankle. Orthopedics following and appreciate their input. (4) Acute blood loss anemia: Code(s): D62 - Acute posthemorrhagic anemia Status: Acute Assessment and Plan: Patient was anemic with guaiac-positive stool. [place] to have acute blood loss anemia. Unclear on her baseline hemoglobin since no recent hemoglobin values available. Hemoglobin climbed 8.4 after 2 units but has trended down to 7 range and remianing stable. Continue to monitor and transfuse as necessary. Continue iron. (5) Urinary retention: Code(s): R33.9 - Retention of urine, unspecified Status: Acute Assessment and Plan: Patient noted to have urine retention the emergency room. This could be related to her spinal stenosis. Agudelo catheter has been placed. Continue Agudelo catheter at this time but will try voiding trial tomorrow (6) Fall: Code(s): W19.XXXA - Unspecified fall, initial encounter Status: Acute Assessment and Plan: Patient states she normally walks using a cane or walker. Continue PT and OT. Increase activity as she tolerates. (7) Atrial fibrillation: Code(s): I48.91 - Unspecified atrial fibrillation Status: Acute Assessment and Plan: AF is rate controlled. EKG on admission showed normal sinus rhythm. Probably paroxysmal atrial fibrillation. Continue Toprol. Holding anticoagulation due to GI bleed. (8) Hypertension: Code(s): I10 - Essential (primary) hypertension Status: Acute Assessment and Plan: Patient's blood pressure was reviewed on 07/24 Blood pressure elevated at times but overall reasonable Will continue current medications. (9) Spinal stenosis: Qualifiers: Neurogenic claudication status: with neurogenic claudication Spinal region: lumbar Qualified Code(s): M48.062 - Spinal stenosis, lumbar region with neurogenic claudication Code(s): M48.00 - Spinal stenosis, site unspecified Status: Acute Assessment and Plan: Patient follows with neurosurgeon. Follow-up in the outpatient. Continue PT/OT Subjective Date/time seen: 07/24/22 17:13 Interval history: 77yo female with AFib, HTN and hx of bioprostetic valve replacement here for weakness. She has chronic diarrhea and noted dark stools. She was noted to have urine retention in the ED and Agudelo placed. She was noted to anemia as well. Ankle pain much improved. No CP or SOB. Up to the chair today. Exam Narrative: AF 98.6 126/56 70 16 97% ra Gen - NARD Chest - CTA bilaterally. CV - RRR S1/S2 Abd -
[2022-07-24 20:00] VITALS: BP 146/55
[2022-07-24] MEDS: AMITRIPTYLINE HCL 25 MG TABLET PO (21:01)
[2022-07-24 21:52] VITALS: BP 146/55; PULSE 70; RESP 16; TEMP 36.7; O2SAT 96
[2022-07-25 06:00] VITALS: BP 141/60; PULSE 72; RESP 16; TEMP 36.7; O2SAT 96
[2022-07-25 08:25] VITALS: PULSE 88
[2022-07-25] MEDS: PANTOPRAZOLE 40 MG TABLET PO (08:25)
[2022-07-25] MEDS: amLODIPine BESYLATE 5 MG TABLET 10 MG PO (08:25)
[2022-07-25] MEDS: METOPROLOL SUCCINATE EXT REL 25 MG TABCR PO (08:25)
[2022-07-25] MEDS: FERROUS SULFATE 324 MG TABLET PO (08:25)
[2022-07-25] MEDS: NAPROXEN 500 MG TABLET PO (08:25)
--- NOTE | 2022-07-25 12:56 | PM.DS ---
DS: Admitting Diagnosis Discharge Date 07/25/22 Admitting Diagnosis Weakness DS: Discharge Diagnosis Discharge Diagnosis (1) Acute GI bleeding: Code(s): K92.2 - Gastrointestinal hemorrhage, unspecified Status: Acute (2) Left ankle pain: Code(s): M25.572 - Pain in left ankle and joints of left foot Status: Chronic (3) Acute blood loss anemia: Code(s): D62 - Acute posthemorrhagic anemia Status: Acute (4) Fever: Code(s): R50.9 - Fever, unspecified Status: Acute (5) Urinary retention: Code(s): R33.9 - Retention of urine, unspecified Status: Acute (6) Fall: Code(s): W19.XXXA - Unspecified fall, initial encounter Status: Acute (7) Atrial fibrillation: Code(s): I48.91 - Unspecified atrial fibrillation Status: Chronic (8) Hypertension: Code(s): I10 - Essential (primary) hypertension Status: Chronic (9) Spinal stenosis: Qualifiers: Neurogenic claudication status: with neurogenic claudication Spinal region: lumbar Qualified Code(s): M48.062 - Spinal stenosis, lumbar region with neurogenic claudication Code(s): M48.00 - Spinal stenosis, site unspecified Status: Chronic DS: Summary Hospital Course Reason for hospitalization: 77yo female with AFib, HTN and hx of bioprostetic valve replacement here for weakness. She has chronic diarrhea and noted dark stools. She was noted to have urine retention in the ED and Agudelo placed. She was noted to anemia as well. Please see H&P for details. Hospital Course: Patient was weak and found to have a Hgb 5.4 on admission. Rectal exam in ED was hemoccult positive. S/P blood transfusion x2 units PRBC. Hgb up to 7.4 and stable. Colonoscopy showing internal hemorrhoids o/w normal. 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 Anticoagulation was held.? Plan to resume anticoagulation after 7 days from cauterization (on 07/27/22).?Patient was anemic and felt to have acute blood loss anemia.? Unclear on her baseline hemoglobin since no recent hemoglobin values available.? Treated with Protonix.? Patient developed fevers to 102 (one time event).? No other symptoms to suggest etiology.? WBC was higher at 15K but better now. CXR showing left basilar airspace disease suspect atelectasis. Influenza/COVID/RSV negative. UA was clear. BCx NGTD. Procalcitonin 0.9 and CRP 22. Abx were held. No recurrence of fever.? Patient did have left ankle pain.? X-ray showing possible avulsion injury to the lateral malleolus but not felt patient had a fracture per ortho. Also with right MTP tenderness and redness. [place] that her right MTP and left ankle related to gout. Uric acid 6.9. Naproxen started with benefits. Unable to aspirate fluid from the left ankle. Patient noted to have urine retention the emergency room.? This could be related to her spinal stenosis.? Agudelo catheter was placed and did well with voiding trial. Elavil was held. EKG on admission showed normal sinus rhythm.? Probably paroxysmal atrial fibrillation.? We continued Toprol. Holding anticoagulation due to GI bleed. Patient with spinal stenosis. She follows with neurosurgeon. She worked with PT/OT. She overall did well and wa able to be discharged to acute rehab on 07/25/22 Status at Discharge Cognitive/behavioral status at discharge: Stable Time Spent with Patient Time attestation: Total time spent providing and/or coordinating discharge services: 35 minutes Time spent: Greater than 30 minutes Exam Narrative: AF 98.1 141/60 88 16 96% ra Gen - NARD Chest - CTA bilaterally. CV - RRR S1/S2 Abd - Soft, NT/ND, Positive BS Ext - No pedal edema. Psych - Nml mood and affect Skin - warm and dry DS: Data Data Completed and Pending Labs on day of discharge: Preliminary micro results at discharge 07/22/22 10:53 Blood Culture - Preliminary Blood 07/22/22 11:10 Blood Culture - Preliminary Blood
[2022-07-25 14:00] VITALS: BP 140/55; PULSE 77; RESP 18; TEMP 36.3; O2SAT 97
[2022-07-25 15:19] VITALS: BP 139/56
== END 2022-07-25 16:25 | disposition short-term general hospital (02) | DRG 378 ==
LOC: ANHED 18:10 → ANH3MED 23:19
PROVIDERS: Family Medicine; Internal Medicine; Internal Medicine Gastroenterology; Physician Assistant; Admitting Provider Internal Medicine; Emergency Provider Emergency Medicine; PCP Family Medicine; Visit Provider Internal Medicine
PROC: 0DJ08ZZ Inspection of Upper Intestinal Tract, Via Natural or Artificial Opening Endoscopic (ICD-10-PCS; CPT 43235; principal; 2022-07-20 12:45)
DX: K31.811 Angiodysplasia of stomach and duodenum with bleeding (principal); D62 Acute posthemorrhagic anemia; M48.062 Spinal stenosis, lumbar region with neurogenic claudication; I10 Essential (primary) hypertension; R33.9 Retention of urine, unspecified; K44.9 Diaphragmatic hernia without obstruction or gangrene; E66.9 Obesity, unspecified; K64.8 Other hemorrhoids; R50.9 Fever, unspecified; M10.9 Gout, unspecified; Z85.038 Personal history of other malignant neoplasm of large intestine; Z68.37 Body mass index [BMI] 37.0-37.9, adult; Z95.2 Presence of prosthetic heart valve; Z80.1 Family history of malignant neoplasm of trachea, bronchus and lung; Z80.8 Family history of malignant neoplasm of other organs or systems; Z83.3 Family history of diabetes mellitus; Z82.49 Family history of ischemic heart disease and other diseases of the circulatory system; Z87.891 Personal history of nicotine dependence; Z79.899 Other long term (current) drug therapy; Z79.01 Long term (current) use of anticoagulants; Z90.49 Acquired absence of other specified parts of digestive tract; W06.XXXA Fall from bed, initial encounter; Y92.003 Bedroom of unspecified non-institutional (private) residence as the place of occurrence of the external cause; Z20.822 Contact with and (suspected) exposure to COVID-19
CPT/HCPCS: 20605; 36415; 36430; 51701; 51702; 70450; 71045; 72125; 72128; 72131; 73600; 77002; 80048; 80053; 80069; 81001; 81003; 83605; 83690; 83735; 84145; 84550; 85025; 85027; 85610; 85730; 86140; 86850; 86900; 86901; 86923; 87040; 87637; 93005; 96361; 96374; 97110; 97161; 97166; 97530; 97535; 99285; A9270; C9113; G0378; J0290; J1580; J2704; J7030; J7050; J7120; P9016; Q9966; U0003; U0005

== ENCOUNTER 2022-10-20 08:53 | Outpatient (CLI) | payer MEDICARE, OTHER, SELFPAY ==
--- NOTE | ~2022-10-20 | MM_ITS ---
EXAMINATION: MM screening corinne BI w karen HISTORY: Screening mammogram TECHNIQUE: Craniocaudal and mediolateral oblique 3-D tomosynthesis images were obtained and synthetic 2-D images were generated. CAD analysis was submitted and interpreted. COMPARISON: 06/21/2021 diagnostic left mammogram and limited left breast ultrasound 05/19/2021 and 05/12/2020 bilateral screening mammogram examinations BREAST PARENCHYMAL COMPOSITION: There are scattered areas of fibroglandular density. FINDINGS: Stable approximately 4 mm low-density circumscribed opacity at the posterior outer mid left breast, unchanged since 05/12/2020. There is no evidence of suspicious mass, calcification, or archite ctural distortion to suggest malignancy in either breast. There has been no suspicious interval zhou e. IMPRESSION: 1. No mammographic evidence of malignancy. 2. Recommend routine screening mammography in one year. BI-RADS Category 2: Benign finding(s). Reviewed, dictated and finalized at location A. K TURNER
== END 2022-10-20 08:54 | disposition home or self-care (01) ==
PROVIDERS: PCP Family Medicine; Visit Provider Family Medicine
DX: Z12.31 Encounter for screening mammogram for malignant neoplasm of breast (principal)
CPT/HCPCS: 77063; 77067

== ENCOUNTER 2023-08-07 11:26 | Outpatient (CLI) | payer MEDICARE, OTHER, SELFPAY ==
[2023-08-07 15:34] LABS: Free T4 Free Thyroxine 1.77 ng/mL (0.78-2.19)
== END 2023-08-07 11:27 | disposition home or self-care (01) ==
LOC: ANHWCLAB 11:28
PROVIDERS: PCP Family Medicine; Visit Provider Internal Medicine
DX: I10 Essential (primary) hypertension (principal)
CPT/HCPCS: 36415; 84439; 84443

== ENCOUNTER 2023-10-10 12:07 | Outpatient (CLI) | payer MEDICARE, OTHER, SELFPAY ==
--- NOTE | ~2023-10-10 | US_ITS ---
EXAMINATION: US FNA w image guidance DATE: 10/10/2023 13:46 INDICATION: Thyroid nodule. TECHNIQUE: The procedure and its benefits and risks were discussed with the patient. Risks specifically discusse d included bleeding. The patient verbalized understanding of the risks and agreed to proceed. The nec k was prepped and draped in the usual sterile manner. 1% lidocaine was used for local anesthesia. 6 passes were made with a 25G needle into the lesion under ultrasound guidance. There were no immedia te complications. FINDINGS: Grayscale ultrasound images demonstrate needles advanced into a 1.3 cm nodule in right thyroid lobe f or biopsy. IMPRESSION: 1. Ultrasound-guided fine needle aspiration of a right thyroid nodule. Reviewed, dictated and finalized at location A. ERNITY HOUSE COOK
== END 2023-10-10 12:08 | disposition home or self-care (01) ==
LOC: ANHIMG 12:08
PROVIDERS: PCP Family Medicine; Visit Provider Otolaryngology
DX: E04.1 Nontoxic single thyroid nodule (principal)
CPT/HCPCS: 10005; 88172; 88173; 88305

== ENCOUNTER 2023-12-27 05:14 | Emergency (ER) | payer MEDICARE, OTHER, SELFPAY ==
--- NOTE | ~2023-12-27 | XR_ITS ---
Left ankle Technique: AP, oblique, and lateral views were obtained. Clinical History: Injury Findings: There is an oblique, acute, essentially nondisplaced fracture the distal fibula, at and pro ximal to the level of the ankle mortise. No other fracture or dislocation seen. Probable persistent s econdary ossification center at the tip of the lateral malleolus. Ankle mortise and other visualized joint spaces are preserved. Soft tissues are otherwise unremarkable. Impression: Acute, oblique, nondisplaced fracture the distal fibula, as detailed above. Reviewed, dictated and finalized at location M. Impression: Acute, oblique, nondisplaced fracture the distal fibula, as detailed above.
[2023-12-27 05:14] VITALS: BP 152/92; PULSE 68; RESP 15; TEMP 36.4; O2SAT 94
[2023-12-27 05:26] VITALS: BP 158/55; PULSE 66; RESP 16; O2SAT 96
--- NOTE | 2023-12-27 05:29 | ED.LOWEXIN ---
HPI - Extremity Injury (Lower) General Chief Complaint: Extremity Injury, Lower Stated Complaint: fall;left ankle Time Seen by Provider: 12/27/23 05:25 History of Present Illness HPI Narrative: Patient states she tripped and fell about a week ago, went to the ER and had some x-rays of her leg and was told they were normal and she was discharged home, since then she has had problems walking and she is having bad pain to her left ankle which seems swollen. Related Data Home Medications Medication Instructions Recorded Confirmed Aspir-81 81 mg PO DAILY 11/04/20 07/19/22 amlodipine 10 mg tablet 10 mg PO DAILY 11/04/20 07/19/22 losartan 100 mg tablet 50 mg PO DAILY 11/04/20 07/19/22 metoprolol succinate 25 mg 25 mg PO DAILY 11/04/20 07/19/22 tablet,extended release 24 hr acetaminophen 500 mg tablet 1,000 mg PO Q6H PRN Pain 11/04/21 07/19/22 apixaban 5 mg tablet 5 mg PO BID 11/04/21 07/19/22 cholecalciferol (vitamin D3) 50 50 mcg PO DAILY 11/04/21 07/19/22 mcg (2,000 unit) capsule gabapentin PO 05/03/23 Allergies Allergy/AdvReac Type Severity Reaction Status Date / Time amiodarone Allergy Unknown Cough Verified 12/27/23 05:19 RAYMUNDO Inhibitors Allergy Cough Verified 12/27/23 05:19 Review of Systems Review of Systems: All systems reviewed & are unremarkable except as noted in HPI and below PMFSH Past Medical History Medical History H/O colon cancer, stage I Heart murmur Hx of emt intermediate use of blood thinners Hypertension Surgical History Surgical History History of colon resection History of heart valve replacement Family History Family History Mother Hypertension Family history of diabetes mellitus in first degree relative Family history of malignant neoplasm of bone Father Family history of lung cancer Family history of lung disease Social History Social History Smoking packs per day: 0.3 Smoking cigarettes per day: 6.0 Years smoked: 20 Smoking pack-years: 6.00 Smoking status: Former smoker Tobacco type: cigarettes Second hand tobacco smoke exposure: No Smoking end date: 09/10/80 Alcohol intake: never Substance use: never Lack of Transportation: No Lack of Food: Never True Current Housing: I Have Housing Concerned About Future Housing: No Difficulty Paying Gas/Electric Bills: No Difficulty Paying for Meds: No Currently Unemployed: No Education: Don't Know Difficulty w/ Childcare or Family Care: No Living arrangements: with family Gender identity (if verbalized by the patient): Female Spiritual care concerns: No Exam Narrative: EXAMINATION OF ORGAN SYSTEMS/BODY AREAS: Constitutional: Vital signs per nursing GENERAL:[No acute distress, non-toxic appearing.] HEAD: Normal with no signs of head trauma. EYES: EOMI, conjunctiva normal ENT: Hearing grossly intact LUNGS: Nonlabored breathing. HEART: [Regular rate and rhythm], strong palpable DP pulses ABD: Nondistended EXT: Swelling/tenderness most pronounced over the lateral malleolus of the left ankle, no lower leg swelling or tenderness SKIN: [No rashes or lesions.] NEURO: [Alert and oriented x 3. No gross focal sensory or strength deficits.] PSYCH: Normal affect Course Vital Signs Vital signs: Vital Signs Temperature 97.6 F 12/27/23 05:14 Pulse Rate 68 12/27/23 05:14 Respiratory Rate 15 12/27/23 05:14 Blood Pressure 152/92 H 12/27/23 05:14 Pulse Oximetry 94 12/27/23 05:14 Oxygen Delivery Room Air 12/27/23 05:14 Temperature 97.6 F 12/27/23 05:14 Pulse Rate 66 12/27/23 05:26 Respiratory Rate 16 12/27/23 05:26 Blood Pressure 158/55 H 12/27/23 05:26 Pulse Oximetry 96 12/27/23 05:26 Oxygen Delivery Room Air 12/27/23 05:14
== END 2023-12-27 06:53 | disposition home or self-care (01) ==
PROVIDERS: Emergency Provider Emergency Medicine
DX: S82.832A Other fracture of upper and lower end of left fibula, initial encounter for closed fracture (principal); I10 Essential (primary) hypertension; Z95.2 Presence of prosthetic heart valve; Z85.038 Personal history of other malignant neoplasm of large intestine; Z87.891 Personal history of nicotine dependence; Z90.49 Acquired absence of other specified parts of digestive tract; Z79.82 Long term (current) use of aspirin; Z79.01 Long term (current) use of anticoagulants; W19.XXXA Unspecified fall, initial encounter
CPT/HCPCS: 29515; 73610; 99284

== ENCOUNTER 2024-01-31 12:05 | Outpatient (CLI) | payer MEDICARE, OTHER, SELFPAY ==
--- NOTE | ~2024-01-31 | XR_ITS ---
XR ankle LT min 3V DATE: 01/31/2024 12:32 INDICATION: Distal fibular fracture TECHNIQUE: 4 views of left ankle COMPARISON: December 27, 2023 left ankle FINDINGS: There is no interval change in position or alignment at the nondisplaced linear oblique fra cture of the distal diametaphysis. The fracture line is less distinct consistent with interval healin g. The medial and posterior malleoli and the ankle mortise appears intact. Moderate plantar and minimal posterior calcaneal enthesopathy. IMPRESSION: Further healing of nondisplaced distal fibular fracture Reviewed, dictated and finalized at location B.
== END 2024-01-31 12:06 | disposition home or self-care (01) ==
PROVIDERS: Visit Provider Podiatrist Foot & Ankle Surgery
DX: S82.832D Other fracture of upper and lower end of left fibula, subsequent encounter for closed fracture with routine healing (principal); X58.XXXD Exposure to other specified factors, subsequent encounter
CPT/HCPCS: 73610

== ENCOUNTER 2024-02-18 12:03 | Outpatient (CLI) | payer MEDICARE, OTHER, SELFPAY ==
--- NOTE | ~2024-02-18 | XR_ITS ---
Left ankle Technique: AP, oblique, and lateral views were obtained. Clinical History: Distal fibular fracture COMPARISON: 523 2 Findings: Continued routine interval healing of oblique fracture lateral malleolus. Osseous alignment is unchanged. Ankle mortise and other visualized joint spaces are preserved. Soft tissues are other figueroa unremarkable. Impression: Continued routine interval healing of oblique fracture of the lateral malleolus. Reviewed, dictated and finalized at location . Impression: Continued routine interval healing of oblique fracture of the lateral malleolus .
== END 2024-02-18 12:04 | disposition home or self-care (01) ==
LOC: ANHIMG 12:04
PROVIDERS: Visit Provider Podiatrist Foot & Ankle Surgery
DX: S82.832D Other fracture of upper and lower end of left fibula, subsequent encounter for closed fracture with routine healing (principal); X58.XXXD Exposure to other specified factors, subsequent encounter
CPT/HCPCS: 73610

== ENCOUNTER 2025-04-04 17:48 | Inpatient (IN) | payer MEDICARE, OTHER, SELFPAY ==
[2025-04-04] VITALS (7 sets, daily range): BP systolic 149–185; BP diastolic 46–87; PULSE 72–79; RESP 16–22; TEMP 36.7–37.1; O2SAT 91–97; BMI 37.3
--- NOTE | ~2025-04-04 | XR_ITS ---
EXAM: XR abdomen gastric tube insert DATE: 04/04/2025 20:46 HISTORY: post NG placement . COMPARISON: CT abdomen pelvis, same date. FINDINGS: Minimal bibasilar scar/atelectasis. Cardiac valve replacement. Atrial occlusion device. Ne w NG tube, tip and side port over the stomach. Dilated small bowel loops over the upper abdomen. IMPRESSION: NG tube, in good position. Small bowel obstruction. Reviewed, dictated and finalized at location K.
--- NOTE | ~2025-04-04 | CT_ITS ---
EXAMINATION: CT brain wo con DATE: 04/04/2025 19:26 INDICATION: confusion . TECHNIQUE: Computed tomography (CT) of the head was performed without intravenous contrast. The mA wa s adjusted according to patient size. Iterative reconstruction technique was employed. The dose-lengt h product was 681.00 mGy-cm. COMPARISON: 07/18/2022. FINDINGS: No acute intracranial hemorrhage or extra-axial fluid collection. No hydrocephalus, mass, or herniation. No acute ischemic infarct. Unremarkable dural venous sinus attenuation. No acute osseous abnormality. The aerated spaces are clear. Mild atrophy and chronic white matter change. Atherosclerotic intracranial calcification. Right lens replacement. IMPRESSION: No acute intracranial process. Reviewed, dictated and finalized at location K.
--- NOTE | ~2025-04-04 | XR_ITS ---
EXAMINATION: XR sm bowel follow through WS DATE: 04/06/2025 18:20 INDICATION: Small bowel obstruction TECHNIQUE: Sawmill Equipment Operator radiograph(s) of the abdomen was/were obtained. Water-soluble oral contrast was admi nistered, and sequential radiographs of the abdomen were obtained until oral contrast was noted to be in the proximal colon. COMPARISON: CT dated 04/04/2025 FINDINGS: [employer]mill [employer] Operator image demonstrates nasogastric tube with distal tip in proximal side port in the body the stoma ch. There is likely vicariously excreted contrast from the prior CT scan in the gallbladder. Ileocoli c anastomotic suture line in the right abdomen. There are multiple mildly dilated loops of small ash l in the central abdomen consistent with persistent ileus versus small bowel obstruction. Transit yan e from the stomach to the colon beyond the ileocecal valve was approximately 4 hours. There is persis tent mild diffuse dilation of the small bowel. IMPRESSION: 1. Delayed small bowel transit time to the right abdominal ileocolic anastomosis with persistent mild dilation of multiple loops of small bowel which be consistent with persistent ileus versus partial s mall bowel obstruction. Review of prior CT demonstrates no discrete transition point with intermitten t gradual decrease in caliber of the distal small bowel where there is diffuse wall thickening which is more suggestive of an enteritis and associated ileus. Reviewed, dictated and finalized at location A. IMPRESSION: 1. Delayed small bowel transit time to the right abdominal ileocolic anastomosi s with persistent mild dilation of multiple loops of small bowel which be consi stent with persistent ileus versus partial small bowel obstruction. Review of p rior CT demonstrates no discrete transition point with intermittent gradual dec rease in caliber of the distal small bowel where there is diffuse wall thickeni ng which is more suggestive of an enteritis and associated ileus.
--- NOTE | ~2025-04-04 | XR_ITS ---
XR abdomen obstructive series 04/06/2025 05:42 Indication: Small bowel obstruction Procedure: Supine and upright views of abdomen Comparison: CT dated 04/04/2025 Findings: Dilated small bowel present throughout the abdomen, consistent with obstruction. No the col on is relatively decompressed. NG tube in the stomach. No acute osseous abnormality. There is moderat e lower thoracic and lumbar spondylosis. 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 There is right total hip arthroplasty. Impression: 1: Small bowel obstruction. Reviewed, dictated and finalized at location B. Impression: 1: Small bowel obstruction.
--- NOTE | ~2025-04-04 | CT_ITS ---
EXAMINATION: CT abdomen pelvis w con DATE: 04/04/2025 19:26 INDICATION: abdominal pain, vomiting, diarrhea TECHNIQUE: Computed tomography (CT) of the abdomen and pelvis was performed with 100 mL Omnipaque-350 intravenous contrast. Automated exposure control and iterative reconstruction technique were employe d. The dose-length product was 1355.98 mGy-cm. COMPARISON: 03/01/2020. FINDINGS: Lower thorax: Cardiomegaly. Cardiac valve replacements. Dependent atelectasis and possible minimal in terstitial change. Liver: Normal. Biliary/Gallbladder: Gallbladder is normal. No bile duct dilation. Pancreas: No mass or duct dilation. Spleen: Normal. Adrenals:No mass. Kidneys: No hydronephrosis or obstructing calcification. Bilateral hypodense indeterminate renal lesi ons measuring up to 9 mm in the right midpole that are stable to only slightly increased in size sinc e the prior examination and likely represent hemorrhagic or proteinaceous cysts. GI tract: Small hiatal hernia. Multiple loops of dilated small bowel, transition point in the right l ower quadrant. There is uniform bowel wall enhancement. There is wall edema in the distal portions of obstructed small bowel. No interloop fluid or pneumatosis. Prior right hemicolectomy with small to l arge bowel anastomosis in the right abdomen. The duodenal C-loop does not cross the midline indicatin g the presence of nonrotation. Normal appendix. Diverticulosis without diverticulitis. Mesentery/Peritoneum: No ascites, mass, or free air. Enlarged pericaval lymph nodes, a chronic findin g. Retroperitoneum: No mass. Atherosclerotic calcifications of intra-abdominal arterial vessels. Pelvis: Metal artifact over the pelvis. Pelvic organs are within normal limits. Soft Tissues: Small uncomplicated fat-containing umbilical and left inguinal hernias. Bones: No acute osseous finding. Partially visualized, uncomplicated appearing right hip arthroplast y hardware. IMPRESSION: Small bowel obstruction, likely secondary to adhesion in the right lower quadrant. Reviewed, dictated and finalized at location K. IMPRESSION: Small bowel obstruction, likely secondary to adhesion in the right lower quadra nt.
[2025-04-04 18:15] LABS: Hematocrit 33.9 % (37.0-47.0); Hemoglobin 10.7 g/dL (12.0-15.0); Immature Granulocyte Percent A 0.3 % (0-0.5); Lymphocytes Absolute Auto 2.52 K/mm3 (0.9-3.2); Mean Corpuscular HGB Conc 31.6 g/dl (32-36); Mean Corpuscular Hemoglobin 28.4 pg (26-34); Mean Corpuscular Volume 89.9 fl (80-100); Nucleated Red Blood Cells Absolute Auto 0.000 K/mm3 (0.0-0.012); Nucleated Red Blood Cells Perc 0.0 % (0.0-0.2); Platelet Count Result 377 k/mm3 (150-375); Red Blood Count 3.77 M/mm3 (4.2-5.4); White Blood Count 14.3 K/mm3 (4.5-10.0)
--- NOTE | 2025-04-04 18:17 | ECG_ITS ---
Test Date: 2025-04-04 18:53:39 Measurements Intervals [place] Rate: 70 P: 70 SC: 189 QRS: 33 QRSD: 94 T: 42 QT: 310 QTc: 336 Interpretive Statements SINUS RHYTHM No previous ECG available for comparison Electronically Signed On 04-05-2025 14:19:01 CDT by Jeremy Iyer M.D.
--- NOTE | 2025-04-04 18:23 | ED.NAVMDI ---
HPI - Nausea/Vomiting/Diarrhea General Chief complaint: Nausea/Vomiting/Diarrhea Stated complaint: AMS, mult complaints Time Seen by Provider: 04/04/25 18:09 Source: patient, family, EMS, RN notes reviewed and old records reviewed Mode of arrival: EMS Limitations: altered mental status History of Present Illness HPI Narrative: THis is an 80 year old female who presents for evaluation of confusion, vomiting and diarrhea. Her is at bedside to assist with history. He states patient started having vomiting and diarrhea yesterday. He states she had nonbilious emesis and her diarrhea was dark. He does also report that she takes iron supplementation. Patient is normally oriented x 4. Today she knows her name but she is not sure of her age, place She complains of mid abdominal pain. Denies any recent falls. Family report that she does not take anticoagulation any more. Related Data Home Medications ?Medication ?Instructions ?Recorded ?Confirmed ?Last Taken ?Type Aspir-81 81 mg PO DAILY 11/04/20 07/19/22 11/16/20 History amlodipine 10 mg tablet 10 mg PO DAILY 11/04/20 07/19/22 11/17/20 History losartan 100 mg tablet 50 mg PO DAILY 11/04/20 07/19/22 11/17/20 History metoprolol succinate 25 mg 25 mg PO DAILY 11/04/20 07/19/22 11/17/20 History tablet,extended release 24 hr acetaminophen 500 mg tablet 1,000 mg PO Q6H PRN Pain 11/04/21 07/19/22 Unknown History apixaban 5 mg tablet 5 mg PO BID 11/04/21 07/19/22 Unknown History cholecalciferol (vitamin D3) 50 50 mcg PO DAILY 11/04/21 07/19/22 Unknown History mcg (2,000 unit) capsule gabapentin PO 05/03/23 Unknown History Allergies Allergy/AdvReac Type Severity Reaction Status Date / Time amiodarone Allergy Unknown Cough Verified 04/04/25 18:06 RAYMUNDO Inhibitors Allergy Cough Verified 04/04/25 18:06 [facility] Past Medical History Medical History (Updated 04/04/25 @ 22:14 by Ena Carrizales MD) H/O colon cancer, stage I Heart murmur Hypertension Surgical History Surgical History History of colon resection History of heart valve replacement Family History Family History Mother Hypertension Family history of diabetes mellitus in first degree relative Family history of malignant neoplasm of bone Father Family history of lung cancer Family history of lung disease Social History Social History Smoking packs per day: 0.3 Smoking cigarettes per day: 6.0 Years smoked: 20 Smoking pack-years: 6.00 Smoking status: Former smoker Tobacco type: cigarettes Second hand tobacco smoke exposure: No Smoking end date: 09/10/80 Alcohol intake: never Substance use: never Lack of Transportation: No Lack of Food: Never True Current Housing: I Have Housing Concerned About Future Housing: No Difficulty Paying Gas/Electric Bills: No Difficulty Paying for Meds: No Currently Unemployed: No Education: Don't Know Difficulty w/ Childcare or Family Care: No Living arrangements: with family Gender identity (if verbalized by the patient): Female Spiritual care concerns: No Exam Const: General: no acute distress and alert Limitations: altered mental status HENMT: Head: normal to inspection Eyes: Pupils: Equal, round and reactive pupils present EOM: EOMs intact bilaterally Chest: Chest palpation & inspection: normal inspection of the chest Resp: Effort & Inspection: normal respiratory effort Auscultation: clear to auscultation bilaterally Cardio: Rate: regular rate Rhythm: regular rhythm Heart sounds: Murmur heart sound present GI: Inspection: distended GI Palp: Yes Soft to palpation, Yes Tenderness to palpation present (GI), Yes Guarding due to palpation present (GI), No Rigid due to palpation and Yes Hernia present ventral Auscultation: normal bowel sounds Skin: General skin exam: normal color Rashes: no rashes Neuro: General: moves all extremities and CN's II-XI intact bilaterally Extrem: General: edema Psych: Mental Status: mental status grossly normal Affect: normal affect Attitude: cooperative Course Reevaluation(s) Reevaluation #1: I reviewed with family and patient she was found to have small bowel obstruction. They understand treatment plan and admission Date: 04/04/25 Time: 20:07 Consultations Consultation #1: I discussed with Dr. segura CT show SBO. He agrees to consult. agrees with plan for NG tube Date: 04/04/25 Time: 20:07 Consultation #2: Hospitalist accepts to the floor. REquest to be started on cefepime and vanc Date: 04/04/25 Time: 20:34 Vital Signs Vital signs: Vital Signs Temperature 98.7 F 04/04/25 17:49 Pulse Rate 78 04/04/25 17:49 Respiratory Rate 21 H 04/04/25 17:49 Blood Pressure 185/51 H 04/04/25 17:49 Pulse Oximetry 97 04/04/25 17:49 Oxygen Delivery Room Air 04/04/25 17:49 Temperature 98.7 F 04/04/25 17:49 Pulse Rate 75 04/04/25 21:00 Respiratory Rate 16 04/04/25 21:00 Blood Pressure 149/87 H 04/04/25 21:00 Pulse Oximetry 95 04/04/25 21:00 Oxygen Delivery Room Air 04/04/25 17:49 MDM - Nausea/Vomiting/Diarrhea Differential Diagnosis Differential diagnosis: Likely traveler's diarrhea, gastroenteritis, dehydration and other (SBO, abscess. UTI sepsis) Medical Records Attestation: I reviewed the patient's medical records. Lab Data Attestation: I reviewed the patient's lab results. 04/04/25 18:08 04/04/25 18:08 Labs: Lab Results 04/04/25 04/04/25 04/04/25 Range/Units 18:08 18:45 19:35 WBC 14.3 H (4.5-10.0) K/mm3 RBC 3.77 L (4.2-5.4) M/mm3 Hgb 10.7 L (12.0-15.0) g/dL Hct 33.9 L (37.0-47.0) % MCV 89.9 (80-100) fl MCH 28.4 (26-34) pg MCHC 31.6 L (32-36) g/dl RDW 20.2 H (11.5-14.5) % Plt Count 377 H (150-375) k/mm3 MPV 10.0 (7.4-10.4) fl Immature Gran % (Auto) 0.3 (0-0.5) % Neut % (Auto) 67.8 (45.5-73.1) % Lymph % (Auto) 17.6 L (18.3-44.2) % [place] % (Auto) 12.8 H (2.6-8.5) % Eos % (Auto) 1.3 (0-4.4) % Baso % (Auto) 0.2 (0.2-1.2) % Lymph # (Auto) 2.52 (0.9-3.2) K/mm3 [place] # (Auto) 1.8 H (0.1-0.6) K/mm3 Eos # (Auto) 0.2 (0-0.3) K/mm3 Baso # (Auto) 0.0 (0.0-0.1) K/mm3 Abs Immat Gran (auto) 0.04 H (0.00-0.031) K/mm3 Absolute Neuts (auto) 9.7 H (1.3-6.7) K/mm3 Absolute Nucleated RBC 0.000 (0.0-0.012) K/mm3 Nucleated RBC % 0.0 (0.0-0.2) % PT 14.0 (11.1-14.7) Seconds INR 1.1 APTT 31.9 (22.3-36.8) Seconds Sodium 138 (137-145) mmol/L Potassium 4.0 (3.4-5.0) mmol/L Chloride 109 H (98-107) mmol/L Carbon Dioxide 18 L (22-30) mmol/L Anion Gap 11 (4-12) mmol/L BUN 14 (7-17) mg/dL Creatinine 1.45 H (0.7-1.0) mg/dL Estim Creat Clear Calc 28 ml/min Estimated GFR 35 L (59 - ) Glucose 103 (65-110) mg/dL Lactic Acid 0.7 (0.7-2.0) mmol/L Calcium 9.8 (8.4-10.2) mg/dL Magnesium 2.1 (1.6-2.3) mg/dL Total Bilirubin 0.4 (0.2-1.3) mg/dL AST 36 (14-36) U/L ALT 32 (6-35) U/L Alkaline Phosphatase 113 (38-126) U/L Troponin I < 0.012 (0.000-0.034) ng/mL Total Protein 8.4 H (6.3-8.2) g/dL Albumin 4.2 (3.5-5.1) g/dL Lipase 33 (23-300) U/L Urine Color Yellow (Yellow) Urine Appearance Clear (Clear) Urine pH 5.5 (5.0-9.0) Ur Specific [place] 1.017 (1.001-1.035) Urine Protein Negative (Negative) mg/dL Urine Glucose (UA) Negative (Negative) mg/dL Urine Ketones Trace H (Negative) mg/dL Ur Blood (Man) Negative (Negative) Urine Nitrate Negative (Negative) Urine Bilirubin Negative (Negative) Urine Urobilinogen 0.2 (<2.0) mg/dL Leukocyte Esterase Rfl Negative (Negative) ANGELA/UL Imaging Data Radiologist's impression: ITS Impressions Head CT 04/04/25 19:29 IMPRESSION: No acute intracranial process. Abdomen/Pelvis CT 04/04/25 19:30 IMPRESSION: Small bowel obstruction, likely secondary to adhesion in the right lower quadrant. ECG Data EKG #1: Attestation: I personally reviewed and interpreted this ECG as follows: ECG completion date: 04/04/25 ECG completion time: 18:53 EKG Interpretation: normal rate (70), sinus rhythm, no ST changes and no acute changes Critical Care Time Critical Care Time Critical Care Time: Yes Total Critical Care Time: 40 Discharge Plan Discharge Clinical Impression: Acute encephalopathy, Complete small bowel obstruction Patient Disposition: Still a Patient Condition: Guarded Prognosis
[2025-04-04] MEDS: SODIUM CHLORIDE 0.9% IV 1,000 ML 999 ML IV CONT (18:33)
[2025-04-04] MEDS: ONDANSETRON INJ 4 MG/2 ML VIAL IV PUSH (18:35)
[2025-04-04] MEDS: MORPHINE SULFATE (*CRX) 2 MG/ML INJ IV PUSH (18:35)
[2025-04-04] MEDS: PANTOPRAZOLE SODIUM IV 40 MG VIAL IV PUSH (18:36)
[2025-04-04 18:42] LABS: Alanine Aminotransferase 32 U/L (6-35); Albumin Level 4.2 g/dL (3.5-5.1); Alkaline Phosphatase 113 U/L (38-126); Anion Gap 11 mmol/L (4-12); Aspartate Amino Transferase 36 U/L (14-36); Bilirubin,Total 0.4 mg/dL (0.2-1.3); Blood Urea Nitrogen 14 mg/dL (7-17); Calcium 9.8 mg/dL (8.4-10.2); Carbon Dioxide 18 mmol/L (22-30); Chloride 109 mmol/L (98-107); Estimated CRCL calculation 28 ml/min; Estimated Glomerular Filt Rate 35; Glucose 103 mg/dL (65-110); Lipase 33 U/L (23-300); Magnesium 2.1 mg/dL (1.6-2.3); Potassium 4.0 mmol/L (3.4-5.0); Sodium 138 mmol/L (137-145); Total Protein 8.4 g/dL (6.3-8.2)
[2025-04-04 18:53] LABS: Troponin I < 0.012 ng/mL (0.000-0.034)
--- NOTE | 2025-04-04 19:15 | PC.NURSE ---
Report received from DIPESH Ny. Pt away at testing at this time.
[2025-04-04 19:26] LABS: INR 1.1; Prothrombin Time 14.0 Seconds (11.1-14.7)
[2025-04-04 19:27] LABS: Partial Thromboplastin Time 31.9 Seconds (22.3-36.8)
--- OUTSIDE RECORDS SUMMARY | 2025-04-04 19:33 | XMS_ITS | Encounter Summary ---
Author Organization [facility] Address [address] [place] [address] Phone Care Team Providers Care Reimbursement Analyst Name Role Phone TiburcioRoger espitia DO Unavailable [phone] Kasi Grullon MD Unavailable [phone] Roger Lebron MD Unavailable [phone] Puneet Rizvi MD Unavailable [phone] Yrn Bass Primary Care Provider + Tal Sharp DO Unavailable [phone] Reason for Visit * Reason Onset Date Comments Test Results 03/23/2025 Anemia 03/23/2025 Encounter Details Date Type Department Care Team (Late st Contact Info) Description 03/23/2025 Telephone [facility] Cardiology [address] [facility] 8th [place] [address] [place] [address] Floridalma Bach Test Results; Anemia Social History Tobacco Use Types Packs/Day Years Used Date Smoking Tobacco: Former Cigarettes 0.3 15 1 7 - 1991 Smokeless Tobacco: Never Alcohol Use Standard Drinks/Week Comments No 0 (1 standard drink = 0.6 oz pur e alcohol) AUDIT-C Answer Date Recorded Q1: How often do you have a drink containing alcohol? Never 02/13/2023 Q2: How many drinks containi ng alcohol do you have on a typical day when you are drinking? Patient does not drink 06/06/202 3 Frequency of Binge Drinking Not on file 060 02/2023 PHQ-2 Answer Date Recorded PHQ-2 Total Score (If total score is 3 or more points, staff should administer the PHQ-9) 0 02/27/2023 Personal Safety Answer Date Recorded Have you ever been in or are you currently in a harmful physical or emotional relationship or is someone making you feel afraid or unsafe? 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 Medication list updated. Component Ref Range & Units 11 d ago (03/12/25) 3 wk ago (02/26/25) 4 mo ago (11/19/24) 4 mo ago (11/07/24) 1 yr ago (01/17/24) 1 yr ago (11/08/23) 1 yr ago (05/29/23) WBC 3.80 - 9.90 K/cumm 10.16 High 10.48 High 16.1 High R 10.6 High R 9.2 R 12.9 High R 9.1 R Hgb 11.9 - 15.5 g/dL 9.6 Low 10.0 Low 11.8 Low 12.3 12.4 13.0 12.1 Hct 35.6 - 45.5 % 31.4 Low 33.2 Low 37.7 39.1 He confirmed that the pt has denied any blood in her stools, she does not have any evidence of abnormal bruising norbleeding and questioned if she should continue her ASA? He said that he also needs a GI referral for the pt as well and wanted Dr. Grullon to order it. * Telephone Encounter - Floridalma Bach - 03/23/2025 9:18 AM CDT KARRIE PT'S CALLING IN REGARDS TO PT'S HEMOGLOBIN LEVEL DECLINING documented in this encounter Plan of Treatment Not on file documented as of this encounter Goals Goal Patient Goal Type Associated Problems Recent Progress Patient-Stated? Author [facility] No Luz García, DIPESH Note: Patient will establish a comfort-function goal and identify the pain level that will allow the patient to perform desired activities and achieve an acceptable quality of life. documented as of this encounter Visit Diagnoses Not on filedocumented in this encounter Historical Medications * This list may reflect changes made after this encounter. ferrous sulfate 325 mg (65 mg of elemental iron) tabletIndication s:Iron Deficiency Anemia Take 1 tablet (325 mg total) by mouth daily with breakfast omeprazole (PriLOSEC) 20 mg capsule 03/18/2025 added in this encounter Care Teams Reimbursement Analyst Relationship Specialty Start Date End Date Yrn Bass PA [address] [place] [id number] PCP - General Internal Medicine 11/21/24 Roger Dey DO Medical Oncologist/Site Surveyor Hematology and Oncology 11/02/20 Kasi Grullon MD Consulting Physician Cardiology 09/20/21 Roger Lebron MD [address] [facility] [address] [place] [address] Consulting Physician Pain Management 06/10/22 Puneet Rizvi MD [address] [facility] [address] [place] [address] Consulting Physician Neurosurgery 01/09/22 Tal Sharp DO [address] [facility] [address] [place] [address] Consulting Physician Nephrology 11/21/24 documented as of this encounter
--- OUTSIDE RECORDS SUMMARY | 2025-04-04 19:33 | XMS_ITS | Clinical Summary ---
Author Organization [facility] Address [address] [place] [id number] Care Team Providers Care Gear Finisher Name Role Phone Yrn Bass Primary Care Provider [phone] Medications amLODIPine (NORVASC) 5 MG tablet Take 1 tablet (5 mg total) by mouth every night 90 tablet 1 4 Active indapamide (LOZOL) 2.5 MG tablet Take 1 tablet (2.5 mg total) by mouth 1 (one) time each day in the morning 90 tablet 1 4 Active atorvastatin (LIPITOR) 20 MG tablet Take 1 tablet (20 mg total) by mouth every night 90 tablet 1 5 Active omeprazole (PriLOSEC) [address] capsule Take 1 capsule (20 mg total) by mouth 1 (one) time each day Do not crush or chew. 90 capsule 1 5 Active NIFEdipine XL (PROCARDIA XL) 60 MG 24 hr tablet Take 1 tablet (60 mg total) by mouth every night Do not crush, chew, or split. 90 tablet 1 5 Active NIFEdipine XL (PROCARDIA XL) 60 MG 24 hr tablet Take 60 mg by mouth every night Do not crush, chew, or split. 03/18/20 25 Discontinu ed(Reorder (does not appear on AVS)) omeprazole (PriLOSEC) [address] capsule Take 20 mg by mouth 1 (one) time each day Do not crush or chew. 03/18/20 25 Discontinu ed(Reorder (does not appear on AVS)) Active Problems Problem Noted Date Diagnosed Date Essential hypertension 03/16/2025 Encounters Date Type Department Care Team Description 03/18/2025 1:15 PM CDT Office Visit [facility] [employer] [employer] [address] [place] [address] Tal Sharp DO Stage 3 chronic kidney disease, not otherwise specified (HCC) (Primary Dx); Diastolic dysfunction; Aortic valve stenosis; History of bioprosthetic transcatheter aortic valve implantation; Paroxysmal atrial fibrillation (HCC); Gastritis; Carcinoma in situ of colon; Hypertensive chronic kidney disease; 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 03/18/2025 Refill [facility] [employer] [address] [place] [id number] Naya Cortez CMA 03/16/2025 Orders Only [address] [place] [address] Mena Franco Essential hypertension (Primary Dx) 03/04/2025 Office Communication [address] [place] [address] Tal Sharp DO from Last 3 Months Social History Tobacco Use Types Packs/Day Years Used Date Smoking Tobacco: Never Assessed Comments Unknown Sex and Gender Information Value Date Recorded Sex Assigned at Not on file Legal Sex Female 4:53 PM EST Gender Identity Not on file Sexual Orientation Not on file Last Filed Vital Signs Vital Sign Reading Time Taken Comments Blood Pressure 130/80 03/18/2025 1:22 PM CDT Pulse 72 03/18/2025 1:22 PM CDT Temperature 36.7 C (98 F) 03/18/2025 1:22 PM CDT Respiratory Rate 18 03/18/2025 1:22 PM CDT Oxygen Saturation 99% 03/18/2025 1:22 PM CDT Inhaled Oxygen Concentration - - Weight 91.1 kg (200 lb 12.8 oz) 03/18/2025 1:22 PM CDT Height - - Body Mass Index - - Plan of Treatment Upcoming Encounters Date Type Department Care Team (Late st Contact Info) Description 04/29/2025 12:00 PM CDT Office Visit [facility] [address] [facility] 1 [place] [address] [place] [address] [place] [address] [address] [phone] Health Maintenance Due Date Last Done Comments Pneumococcal Vaccine: 50+ Years (2 of 2 - PPSV23, PCV20, or PCV21) 11/19/2020 09/24/2020 Diabetes: Ophthalmology Exam 11/26/2023 Diabetes: Pedal Pulse Checked 11/26/2023 Diabetes: Sensory Foot Exam 11/26/2023 Diabetes: Visual Foot Exam 11/26/2023 Influenza Vaccine (#1) 2025 9, 10/26/2016, 10/18/2015, Additional history exists Diabetes: Hemoglobin A1C 06/12/2025 025, 02/26/2025, 11/07/2024, Additional history exists Hepatitis B Vaccine Aged Out No longe r eligible based on patient's age to complete this topic Insurance Medicare [facility] Advance Directives Documents on File Type Date Recorded Patient Fatback Trimmer Expl anation Advance Care Planning 12/21/2023 9:12 AM Care Teams Gear Finisher Relationship Specialty Start Date End Date Yrn Bass PA [facility] [place] [phone] PCP - General Physician Assistant Hall Director 03/14/24
--- OUTSIDE RECORDS SUMMARY | 2025-04-04 19:33 | XMS_ITS | Encounter Summary ---
Author Organization [facility] Address [address] [place] [address] Phone Care Team Providers Care Mice Raiser Name Role Phone Roger Dey DO Unavailable [phone] Phoenix Bojorquez MD Primary Care Provider [phone] Reason for Referral * (Routine) - Closed Specialty Diagnoses / Procedures Referred By Heide yee Referred To Contact Diagnoses Encounter for other preprocedural examination Nonrheumatic aortic valve stenosis Procedures Pulmonary Function Test -[facility]; Standard, Oxygen Assessment Titration, Spirometry, Lung Volumes; Pleth with Airway Resistance; Spirometry, Spirometry w/bronchodilator, DLCO and Lung Volumes Kasi Grullon MD Phone: tel: fax: Referral ID Status Reason Start Date Expiration Date Visits Re quested Visits Authorized [id number] Closed 08/09/2021 09/08/2022 1 1 [employer] Reason for Visit * (Routine) - Closed Specialty Diagnoses / Procedures Referred By Contnahomi yee Referred To Contact Diagnoses Encounter for other preprocedural examination Nonrheumatic aortic valve stenosis Procedures Pulmonary Function Test -[facility]; Standard, Oxygen Assessment Titration, Spirometry, Lung Volumes; Pleth with Airway Resistance; Spirometry, Spirometry w/bronchodilator, DLCO and Lung Volumes Kasi Grullon MD Phone: tel: fax: Referral ID Status Reason Start Date Expiration Date Visits Re quested Visits Authorized [id number] Closed 08/09/2021 09/08/2022 1 1 Encounter Details Date Type Department Care Team (Latest Contact Info) Description 08/24/2021 8:14 AM MANAGER HEAV[employer] EQUIPMENT Hospital Encounter [facility] [address] [facility] [address] [place] [address] Encounter for other preprocedural examination; Nonrheumatic aortic valve stenosis Social History Tobacco Use Types Packs/Day Years Used Date Smoking Tobacco: Former Cigarettes 0.3 15 1 977 - 1991 Smokeless Tobacco: Never Alcohol Use Standard Drinks/Week Comments No 0 (1 standard drink = 0.6 oz pur e alcohol) AUDIT-C Answer Date Recorded Q1: How often do you have a drink containing alcohol? Never 02/13/2023 Q2: How many drinks containi ng alcohol do you have on a typical day when you are drinking? Patient does not drink Frequency of Binge Drinking Not on file 02/2023 PHQ-2 Answer Date Recorded PHQ-2 Total [...] on file Legal Sex Female 1:42 PM MANAGER HE[employer] EQUIPMENT Gender Identity Not on file Sexual Orientation Not on file Occupation Industry Job Start Date Job End Date Retired Not on file Not on file Not on file documented as of this encounter Functional Status documented as of this encounter Plan of Treatment Not on file documented as of this encounter Goals Goal Patient Goal Type Associated Problems Recent Progress Patient-Stated? Author [facility] Luz Rehman, DIPESH Note: Patient will establish a comfort-function goal and identify the pain level that will allow the patient to perform desired activities and achieve an acceptable quality of life. documented as of this encounter Procedures Procedure Name Priority Date/Time Associated Diagnosis Comments PULMONARY FUNCTION TEST (PFT) Routine 08/24/2021 9:58 AM MANAGER [employer]MENT Encounter for other preprocedural examination Nonrheumatic aortic valve stenosis documented in this encounter Results * Pulmonary Function Test - (08/24/2021 9:58 AM MANAGER [employer]QUIPMENT) FVC PRE 2.07 L [facility] FVC %PRE PRED 107 % [facility] FEV1 PRE 1.74 L [facility] FEV1 %PRE PRED 116 % [facility] FEV1/FVC PRE 83.7 % [facility] FRC PL PRE 2.[address] [facility] FRC PL %PRE PRED 79 % [facility] RV PRE 2.01 L [facility] RV %PRE PRED 93 % [facility] TLC PRE 4.14 L [facility] TLC %PRE PRED 92 % [facility] Anatomical Region Laterality Modality PFT 08/24/2021 8:58 AM MANAGER [employer]IPMENT Narrative 08/31/2021 10:31 AM MANAGER HEAV[employer] EQUIPMENT PFT performed at:->[facility] Procedure:->Standard Procedure:->Oxygen Assessment Titration Procedure:->Spirometry Procedure:->Lung Volumes Lung Volumes via:->Pleth with Airway Resistance Standard:->Spirometry, Spirometry w/bronchodilator, DLCO and Lung Volumes Kasi Grullon MD PFT ORDERABLES Final Result documented in this encounter Visit Diagnoses Diagnosis Encounter for other preprocedural examination Nonrheumatic aortic valve stenosis documented in this encounter Care Teams Mice Raiser Relationship Specialty Start Date End Date Phoenix Bojorquez MD [facility] [place] [address] PCP - General Family Medicine 03/02/21 11/20/24 Roger Dey DO Medical Oncologist/Candy Attendant Hematology and Oncology 11/02/20 documented as of this encounter
--- OUTSIDE RECORDS SUMMARY | 2025-04-04 19:33 | XMS_ITS ---
Author Organization [facility] Address [address] [place] [address] Phone Care Team Providers Care Recovery Room Nurse Name Role Phone Roger Dey DO Unavailable [phone] Kasi Grullon MD Unavailable Roger Lebron MD Unavailable Puneet Rizvi MD Unavailable [phone] Yrn Bass Primary Care Provider + Tal Sharp DO Unavailable [phone] Active Problems Problem Noted Date Diagnosed Date Acute urinary tract infection 11/14/2023 Chronic cough 10/29/2023 Bronchitis 08/13/2023 Thyroid nodule 07/18/2023 Abdominal pain 06/18/2023 Right upper quadrant pain 06/18/2023 Presence of Watchman left atrial appendage closu re device 05/23/2023 Assessment & Plan (03/11/2024 6:01 AM CDT): Left atrial appendage occlusion/watchman device placement on 02/27/[address] Beltran. JOHANNY completed on 05/07/23 noting device well seated without peridevice flow and no thrombus noted. Patient doing well. Continue on ASA alone. Follow up in 1 year. Advised patient to send her blood pressure log to nephrology and Dr. Grullon for further guidance. Assessment & Plan (08/30/2023 8:07 PM PEOPLESOFT ANALYST): Left atrial appendage occlusion/watchman device placement on 02/27/[address] Beltran. JOHANNY completed on 05/07/23 noting device well seated without peridevice flow and no thrombus noted. Will plan to stop Plavix and continue on ASA alone. Will discuss with Dr. Grullon and Dr. Beltran per her request before discontinuation. Follow up in 6 months. Assessment & Plan (05/23/2023 9:52 AM CDT): Left atrial appendage occlusion/watchman device placement on 02/27/[address] Beltran. JOHANNY completed on 05/07/23 noting device well seated without peridevice flow and no thrombus noted. Continue aspirin and plavix. Labs when she can. Follow up in 3 months. Abnormal laboratory test result 03/07/2023 Anemia 03/07/2023 Malaise and fatigue 03/06/2023 Vitamin D deficiency 03/06/2023 Paroxysmal atrial fibrillation 02/27/2023 Congestive heart failure 02/06/2023 Obesity 12/18/2022 Allergic rhinitis 11/24/2022 Bunion 09/17/2022 Diabetic peripheral neuropathy 09/17/2022 Lymphedema of lower extremity 09/17/2022 Onychomycosis of toenail 09/17/2022 Lung nodule 01/12/2022 alf current use of anticoagulant 2 Severe aortic stenosis 08/01/2021 Overview (08/03/2021): Added automatically from request for surgery [id number] Thoracic degenerative disc disease 06/29/2021 Lumbar radiculopathy 06/29/2021 DDD (degenerative disc disease), lumbar 06/29/20 Chronic bilateral low back pain with bilateral s ciatica 06/29/2021 Sacroiliitis 06/29/2021 Insomnia secondary to chronic pain 06/29/2021 Thoracic spinal stenosis 06/24/2021 Spondylolisthesis of lumbar region 06/24/2021 Neuropathy 10/10/2020 Depressive disorder 01/12/2020 Malignant neoplasm of ascending colon 10/21/2018 Cancer Staging:Pathologic stage from 10/28/2018:Stage IIIB(pT3, pN1b, cM0) - Signed by Vinny Carroll MD on 10/28/2018 Stage 1 chronic kidney disease 01/11/2015 Heart murmur 01/14/2001 History of malignant neoplasm of colon 1 Hypertensive disorder 01/14/2001 Assessment & Plan (08/30/2023 8:09 PM PEOPLESOFT ANALYST): Blood pressure elevated. Repeat improved but remains above goal. Home log noted blood pressure of 140-150's/60-70's. Will forward home blood pressure log to her general ferris wheel attendant. Assessment & Plan (05/23/2023 9:49 AM CDT): Blood pressure elevated today in clinic and it appears as if it has been elevated at past visits. She is asymptomatic. Keep BP diary and return to us or PCP for review. She should continue current therapy with Losartan 100 mg daily and HCTZ 12.5 mg daily. She will call her PCP and see why her amlodipine was discontinued in the past. Atrial fibrillation Current Treatment and Therapy Plans No current plan information found. Past Treatment and Therapy Plans No past plan information found. Lifetime Dose Tracking * Chemical Lifetime Dose Automatic Entry Manual Entr y Fluoro Time 1.298 minutes 1.298 minutes 0 minutes Air kerma at the reference point (Ka,r) 1,133.744 mGy 46.03 mGy 1,087.714 mGy DLP 5,780 mGycm 5,780 mGycm 0 mGycm
--- OUTSIDE RECORDS SUMMARY | 2025-04-04 19:33 | XMS_ITS | Encounter Summary ---
Author Organization [facility] Address [address] [place] [address] Care Team Providers Care Manager Architectural Name Role Phone Roger DeySumi DO Unavailable [phone] Phoenix Bojorquez MD Primary Care Provider [phone] Bel Montes MD Unavailable Kasi Grullon MD Unavailable Roger Lebron MD Unavailable [phone] Darío Oneill Unavailable [phone] Puneet Rizvi MD Unavailable [phone] Candido Gill DO Unavailable [phone] Yrn Bass Primary Care Provider + Tal Sharp DO Unavailable [phone] Encounter Details Date Type Department Care Team (Late st Contact Info) Description 10/02/2022 Telephone [facility] [address] [place] [address] Natty Deluca, RT Social History Tobacco Use Types Packs/Day Years Used Date Smoking Tobacco: Former Cigarettes 0.3 15 1 977 - 1991 Smokeless Tobacco: Never Alcohol Use Standard Drinks/Week Comments No 0 (1 standard drink = 0.6 oz pur e alcohol) AUDIT-C Answer Date Recorded Q1: How often do you have a drink containing alc ohol? Never 09/19/2021 Average Number of Drinks Not on file 022 Q3: How often do you have si x or more drinks on one occasion? Never 09/19/2021 PHQ-2 Answer Date Recorded PHQ-2 Total Score (If total score is 3 or more points, staff should administer the PHQ-9) 3 06/29/2021 Comments No Sex and Gender Information Value Date Recorded Sex Assigned at Not on file Legal Sex Female 1:42 PM ARTIFICIAL FLY TIER Gender Identity Not on file Sexual Orientation Not on file Occupation Industry Job Start Date Job End Date Retired Not on file Not on file Not on file documented as of this encounter Plan of [...] Diagnoses Not on filedocumented in this encounter Care Teams Manager Architectural Relationship Specialty Start Date End Date Phoenix Bojorquez MD [address] [place] [address] [place] [address] PCP - General Family Medicine 03/02/21 11/20/24 Yrn Bass PA [address] [place] [id number] PCP - General Internal Medicine 11/21/24 Roger Dey DO Medical Oncologist/Hematologi st Hematology and Oncology 11/02/20 Bel Montes MD [address] [place] [address] [place] [address] Surgeon Cardiothoracic Surgery 09/20/21 Kasi Hansen MD [address] [place] [address] [place] [address] Consulting Physician Cardiology 09/20/21 Roger Lebron MD [address] [place] [address] [address] [place] [address] Consulting Physician Pain Management 06/10/22 Darío Oneill PA [address] [place] [address] [address] [place] [id number] Physician Vacuum Cleaner Repairer Neurosurgery 01/08/22 11/20/24 Puneet Rizvi MD [address] [address] [place], [place] [id number] Consulting Physician Neurosurgery 01/09/22 Candido Gill DO [address] [facility] [address] [facility] [address] [place] [address] Consulting Physician Gastroenterology 11/08/22 11/20/24 Tal Sharp DO [address] [place] [address] Consulting Physician Nephrology 11/21/24 documented as of this encounter
--- OUTSIDE RECORDS SUMMARY | 2025-04-04 19:33 | XMS_ITS | Clinical Summary ---
Author Organization [facility] Address [address] [address] Phone Care Team Providers Care Broomcorn Scraper Name Role Phone Abilio Esquivel MD Primary Care Provider [phone] Allergies Active Allergy Reactions Criticality Noted Date Comments Kyle Inhibitors Other (see Comments) 01/23/2018 cough Medications AMLODIPINE BESYLATE PO Take 10 mg by mouth daily. Active LOSARTAN POTASSIUM PO Take 10 mg by mouth daily. Active Aspirin 81 MG Tablet Take 81 mg by mouth daily. Active metoprolol Succinate (TOPROL-XL) 25 MG TABLET SR 24 HR TAKE 1 TABLET BY MOUTH ONCE DAILY 08/17/2020 Active hydroCHLOROthiaz maria t 12.5 MG Tablet TAKE 1 TABLET BY MOUTH ONCE DAILY 10/14/2020 Active Cholecalciferol (VITAMIN D3 PO) Take by mouth. Active melatonin 3 MG Tablet Take 3 mg by mouth nightly. Active Acetaminophen (TYLENOL EXTRA STRENGTH PO) Take by mouth. Active Active Problems No known active problems Immunizations Immunization Administration Dates Next Due Pneumococcal Vaccine - 13 Valent 09/24/2020 TDAP Vaccine 09/24/2020 Family History Medical History Relation Name Comments Cancer Father Lung Cancer Mother bone Cancer Paternal Uncle lung Relation Name Status Comments Father Mother Paternal Uncle Social History Tobacco Use Types Packs/Day Years Used Date Smoking Tobacco: Former Cigarettes 0.5 30 0 [birth year]23/1954 - 01/24/1984 Smokeless Tobacco: Never Tobacco Cessation:Counseling Given: No Alcohol Use Standard Drinks/Week Comments No 0 (1 standard drink = 0.6 oz pur e alcohol) Sexually Active Control Partners Comments Yes Comments No Sex and Gender Information Value Date Recorded Sex Assigned at Not on file Legal Sex Female 9:46 PM CDT Gender Identity Not on file Sexual Orientation Not on file Occupation Industry Job Start Date Job End Date Retired [employer] Not on file Not on file Not on file Last Filed Vital Signs Vital Sign Reading Time Taken Comments Blood Pressure 142/70 10/27/2020 8:04 AM SALES RECRUITER Pulse 78 10/27/2020 8:04 AM SALES RECRUITER Temperature 35.6 C (96 F) 10/27/2020 8:04 AM SALES RECRUITER Respiratory Rate 20 10/27/2020 8:04 AM SALES RECRUITER Oxygen Saturation 96% 10/27/2020 8:04 AM SALES RECRUITER Inhaled Oxygen Concentration - - Weight 90.3 kg (199 lb) 10/27/2020 8:04 AM SALES RECRUITER Height 157.5 cm (5' 2) 10/27/2020 8:04 AM SALES RECRUITER Body Mass Index 36.4 10/27/2020 8:04 AM SALES RECRUITER Plan of Treatment Health Maintenance Due Date Last Done Comments DEXA Bone Density 1945 Hepatitis C Virus (HCV) Screening 1945 Zoster Immunization (1 of 2) 1993 Respiratory Syncytial Virus (RSV) Immunization (Adult) (1 - 1-dose 75+ series) 2018 Pneumococcal Immunization (50+ years) (2 of 2 - PPSV23) 09/24/2021 09/24/2020 SARS-COV-2 Immunization ( season) 2024 12/30/2021, 07/06/2021, 11/26/2020, Additional history exists Influenza Immunization (#1) 2025 DTaP/Tdap/Td Immunization Discontinued 09/24/2020 Pneumococcal Immunization Combined Discontinued 09/24/2020 Hepatitis B Immunization Aged Out No longer eligible based on patient's age to complete this topic Human Papillomavirus (HPV) Immunization Aged Out No longer eligible based on patient's age to complete this topic Meningococcal Immunization (ACWY) Aged Out No longer eligible based on patient's age to complete this topic Rotavirus Immunization Aged Out No lo nger eligible based on patient's age to complete this topic Insurance MEDICARE Care Teams Broomcorn Scraper Relationship Specialty Start Date End Date Abilio Esquivel MD [address] [place] [id number] PCP - General Family Medicine 01/03/18
--- OUTSIDE RECORDS SUMMARY | 2025-04-04 19:33 | XMS_ITS | Referral Summary ---
Author Organization [facility] Address [address] [place] [address] Phone Care Team Providers Care Water Quality Specialist Name Role Phone Roger Dey DO Unavailable Kasi Grullon MD Unavailable Roger Lebron MD Unavailable Puneet Rizvi MD Unavailable Yrn Bass Primary Care Provider + Tal Sharp DO Unavailable [phone] Encounters Date Type Department Care Team Description 04/01/2025 11:00 AM CDT Office Visit [facility] Cardiology [address] [facility] Medical Office Building [address] [place] [address] Kasi Grullon MD 03/23/2025 Telephone [facility] Cardiology [address] [facility] 8th [place] [address] [place] [phone] Floridalma Bach Test Results; Anemia 03/16/2025 10:15 AM CDT - 03/16/2025 11:59 PM CDT Hospital Encounter [facility] [address] [place] [address] Discharge Disposition: Discharge to home or self care 03/16/2025 10:15 AM CDT Lab [facility] Outpatient Lab at [address] [address] 03/12/2025 3:04 PM CDT - 03/12/2025 11:59 PM CDT Hospital Encounter [address] [address] Chronic kidney disease, stage III (moderate) (HCC); Heart disease, unspecified; Nodular calcific aortic valve stenosis; Heart valve replaced by transplant; Paroxysmal atrial fibrillation (HCC); Gastroesophagitis; Carcinoma in situ of colon; 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, 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); Screening for diabetes mellitus Discharge Disposition: Discharge to home or self care 03/12/2025 3:00 PM CDT Lab [facility] Outpatient Lab at [address] [address] Chronic kidney disease, stage III (moderate) (HCC) (Primary Dx); Heart disease, unspecified; Nodular calcific aortic valve stenosis; Heart valve replaced by transplant; Paroxysmal atrial fibrillation (HCC); Gastroesophagitis; Carcinoma in situ of colon; 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, 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); Screening for diabetes mellitus 02/26/2025 3:17 PM CDT - 02/26/2025 11:59 PM CDT Hospital Encounter [address] [address] Peripheral nerve disorder; Essential hypertension, malignant; Mixed hyperlipidemia; Nontoxic uninodular goiter Discharge Disposition: Discharge to home or self care 02/26/2025 10:30 AM CDT Lab [facility] Outpatient Lab at [address] [address] Peripheral nerve disorder (Primary Dx); Essential hypertension, malignant; Mixed hyperlipidemia; Nontoxic uninodular goiter 02/19/2025 11:30 AM CDT Office Visit [facility] Cardiology [address] [place] [address] 8th [place] [address] [place] [phone] Barbie Tafoya NP Paroxysmal atrial fibrillation (HCC) (Primary Dx) 01/27/2025 Telephone [facility] Cardiology [address] [place] [address] 8th [place] [address] [place] [address] Barbie Tafoya NP from Last 3 Months Allergies Active Allergy Reactions Criticality Noted Date Comments Kyle Inhibitors Cough,Other (See comments) Low 06/30 Medications acetaminophen (TYLENOL) 500 mg tabletIndicatio ns:Pain Take 2 tablets (1,000 mg total) by mouth every 6 (six) hours as needed for pain Active aspirin 81 mg chewable tablet Take 1 tablet (81 mg total) by mouth daily 30 tablet 11 2 Active cholecalciferol (VITAMIN D-3) 2000 unit capsuleIndicati ons:Vitamin D Deficiency Take 1 capsule (2,000 Units total) by mouth every morning Active multivitamin tabletIndicatio ns:Vitamin Deficiency Prevention Take 1 tablet by mouth braid cutter before breakfast Active amiodarone (PACERONE) 200 mg tabletIndicatio ns:a-fib Take 1 tablet (200 mg total) by mouth braid cutter before breakfast 3 Active gabapentin (NEURONTIN) 800 mg tabletIndicatio ns:Neuropathic Pain Take 900 mg by mouth 3 (three) times a day 3 Active cetirizine (ZyrTEC) 10 mg tabletIndicatio ns:Seasonal Allergic Rhinitis Take 1 tablet (10 mg total) by mouth braid cutter before breakfast 3 Active losartan (COZAAR) 100 mg tabletIndicatio ns:hypertension Take 1 tablet (100 mg total) by mouth braid cutter before breakfast 3 Active montelukast (SINGULAIR) 10 mg tablet 4 Active spironolactone (ALDACTONE) 25 mg tablet Take 0.5 tablets (12.5 mg total) by mouth daily Active amLODIPine (NORVASC) 10 mg tablet Take 1 tablet (10 mg total) by mouth nightly 90 tablet 3 4 Active fluticasone propionate (FLONASE) 50 mcg/actuation nasal spray 5 Active predniSONE (DELTASONE) 20 mg tablet Take 2 tabs PO twice daily for 2 days; 1 tab PO twice daily for 5 days; 1/2 tab PO twice daily for 2 days; 1/2 tab PO once for 1 day. TAKE 2ND DOSE EVERYDAY AT NOON-10 DAY COURSE 5 Active atorvastatin (LIPITOR) 20 mg tablet Take 1 tablet (20 mg total) by mouth nightly 5 Active NIFEdipine (NIFEdipine CC) 30 mg 24 hr tablet Take 1 tablet (30 mg total) by mouth daily 90 tablet 3 5 Active omeprazole (PriLOSEC) 20 mg capsule 5 Active ferrous sulfate 325 mg (65 mg of elemental iron) tabletIndicatio ns:Iron Deficiency Anemia Take 1 tablet (325 mg total) by mouth daily with breakfast Active Active Problems Problem Noted Date Diagnosed Date [...] guidance. 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 Repeat improved but remains above goal. Home log noted blood pressure of 140-150's/60-70's. Will forward home blood pressure log to her general labeler. Assessment & Plan (05/23/2023 9:49 AM CDT): [...] was discontinued in the past. Atrial fibrillation Immunizations Immunization Administration Dates Next Due Influenza, Unspecified 06/10/2019,2016,10/18/2015,2012 Moderna SARS-CoV-2 Monovalen t Vaccination (12+ YRS) 10/29/2020 Pneumococcal Conjugate PCV 13 09/24/2020 Tdap 09/24/2020 ZOSTER LIVE 10/26/2016,10/18/2015 Social History Tobacco Use Types Packs/Day Years Used Date Smoking Tobacco: Former Cigarettes 0.3 15 1 977 - 1991 Smokeless Tobacco: Never Tobacco Cessation:Counseling Given: Not Answered Alcohol Use Standard Drinks/Week Comments No 0 [...] on file Legal Sex Female 1:42 PM DIRECTOR OF RESTAUR[employer] Gender Identity Not on file Sexual Orientation Not on file Occupation Industry Job Start Date Job End Date Retired Not on file Not on file Not on file Last Filed Vital Signs Vital Sign Reading Time Taken Comments Blood Pressure 152/60 04/01/2025 11:07 AM CDT Pulse 69 04/01/2025 11:07 AM CDT Temperature 36.8 C (98.3 F) 11/21/2024 10:18 AM CDT Respiratory Rate 16 11/21/2024 10:18 AM CDT Oxygen Saturation 98% 04/01/2025 11:07 AM CDT Inhaled Oxygen Concentration - - Weight 90.4 kg (199 lb 3.2 oz) 04/01/2025 11:07 AM CDT Height 154.9 cm (5' 1) 04/01/2025 11:07 AM CDT Body Mass Index 37.64 04/01/2025 11:07 AM CDT Plan of Treatment Not on file Goals Goal Patient Goal Type Associated Problems Recent Progress Patient-Stated? Author [facility] Luz Rehman RN Note: Patient will establish a comfort-function goal and identify the pain level that will allow the patient to perform desired activities and achieve an acceptable quality of life. Medical Devices Implanted Type Area Agricultural Plow Operator Device Identifier Shelf Expiration Date Model / Serial / Lot [employer] [id number] Angio-Seal Evolution 6fr .035in Guidewire Bypass Tube Suture - [id number] - [id number] Implanted:Qty: 1 on 09/19/2021 by Kasi Grullon MD at [facility] Collagen [employer] Willow 02/07/2022 [id number] / [id number] / [id number] [employer] Percutaneous Transcatheter Amplatzer Amulet 25mm [id number] - [id number] - [id number] Implanted:Qty: 1 on 02/27/2023 by Chau Beltran MD at [facility] Ductal Occluder Left: Atrial Appendage [employer] 05/10/2027 9-ACP2-0 10 / [id number] / [id number] Other - See Comments Other - see comments Right: Hip Description:Hip replacement [employer] 35509-18 Device Clsr Perclose Prostyle Sut-Mediatd Closure-Repair Sys - [id number] Implanted:Qty: 1 on 09/19/2021 by Kasi Grullon MD at [facility] Other - see comments [employer] 06/09/2023 [id number] / / [id number] Description:perclose [employer] [id number] Valve Heart 23mm Henny 3 Transcatheter - [id number] - [id number] Implanted:Qty: 1 on 09/19/2021 by Kasi Grullon MD at [facility] Prosthetic Valve Aortic Valve [employer] 06/02/2023 [id number] / [id number] / [id number] [employer] Device Clsr Perclose Prostyle Sut-Mediatd Closure-Repair Sys 71911-38 - [id number] - [id number] Implanted:Qty: 1 on 02/27/2023 by Chau Beltran MD at 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, 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 ) Screening for diabetes mellitus CYSTATIN C Routine 03/12/2025 3:04 PM CDT Chronic kidney disease, stage III (moderate) (HCC) Heart disease, unspecified Nodular calcific aortic valve stenosis Heart valve replaced by transplant Paroxysmal atrial fibrillation (HCC) Gastroesophagitis Carcinoma in situ of colon 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, 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 ) Screening for diabetes mellitus CBC WITHOUT DIFFERENTIAL Routine 03/12/2025 3:04 PM CDT Chronic kidney disease, stage III (moderate) (HCC) Heart disease, unspecified Nodular calcific aortic valve stenosis Heart valve replaced by transplant Paroxysmal atrial fibrillation (HCC) Gastroesophagitis Carcinoma in situ of colon 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, 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 ) Screening for diabetes mellitus RENAL FUNCTION PANEL Routine 03/12/2025 3:04 PM CDT Chronic kidney disease, stage III (moderate) (HCC) Heart disease, unspecified Nodular calcific aortic valve stenosis Heart valve replaced by transplant Paroxysmal atrial fibrillation (HCC) Gastroesophagitis Carcinoma in situ of colon 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, 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 ) Screening for diabetes mellitus MAGNESIUM Routine 03/12/2025 3:04 PM CDT Chronic kidney disease, stage III (moderate) (HCC) Heart disease, unspecified Nodular calcific aortic valve stenosis Heart valve replaced by transplant Paroxysmal atrial fibrillation (HCC) Gastroesophagitis Carcinoma in situ of colon 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, 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 ) Screening for diabetes mellitus VITAMIN D 25 HYDROXY Routine 03/12/2025 3:04 PM CDT Chronic kidney disease, stage III (moderate) (HCC) Heart disease, unspecified Nodular calcific aortic valve stenosis Heart valve replaced by transplant Paroxysmal atrial fibrillation (HCC) Gastroesophagitis Carcinoma in situ of colon 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, 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 ) Screening for diabetes mellitus HEMOGLOBIN A1C Routine 03/12/2025 3:04 PM CDT Chronic kidney disease, stage III (moderate) (HCC) Heart disease, unspecified Nodular calcific aortic valve stenosis Heart valve replaced by transplant Paroxysmal atrial fibrillation (HCC) Gastroesophagitis Carcinoma in situ of colon 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, 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 ) Screening for diabetes mellitus EGFR Routine 02/26/2025 12:00 PM CDT Peripheral nerve disorder Essential hypertension, malignant Mixed hyperlipidemia Nontoxic uninodular goiter HEMOGLOBIN A1C Routine 02/26/2025 12:00 PM CDT Peripheral nerve disorder Essential hypertension, malignant Mixed hyperlipidemia Nontoxic uninodular goiter VITAMIN B12 Routine 02/26/2025 12:00 PM CDT Peripheral nerve disorder Essential hypertension, malignant Mixed hyperlipidemia Nontoxic uninodular goiter FOLATE Routine 02/26/2025 12:00 PM CDT Peripheral nerve disorder Essential hypertension, malignant Mixed hyperlipidemia Nontoxic uninodular goiter CBC WITHOUT DIFFERENTIAL Routine 02/26/2025 12:00 PM CDT Peripheral nerve disorder Essential hypertension, malignant Mixed hyperlipidemia Nontoxic uninodular goiter COMPREHENSIVE METABOLIC PANEL Routine 02/26/2025 12:00 PM CDT Peripheral nerve disorder Essential hypertension, malignant Mixed hyperlipidemia Nontoxic uninodular goiter LIPID PANEL Routine 02/26/2025 12:00 PM CDT Peripheral nerve disorder Essential hypertension, malignant Mixed hyperlipidemia Nontoxic uninodular goiter VITAMIN D 25 HYDROXY Routine 02/26/2025 12:00 PM CDT Peripheral nerve disorder Essential hypertension, malignant Mixed hyperlipidemia Nontoxic uninodular goiter TSH Routine 02/26/2025 12:00 PM CDT Peripheral nerve disorder Essential hypertension, malignant Mixed hyperlipidemia Nontoxic uninodular goiter T4, FREE Routine 02/26/2025 12:00 PM CDT Peripheral nerve disorder Essential hypertension, malignant Mixed hyperlipidemia Nontoxic uninodular goiter DEXA AXIAL SKELETON BONE DENSITY 1 OR MORE SITES Schedule Routine, Read Routine (OP Routine) 10/03/2022 10:44 AM DIRECTOR OF RESTAURANTS Encounter for screening for osteoporosis Menopause from Last 3 Months or Most Recently Relevant to Health Maintenance Results * Protein / creatinine ratio, urine, random (03/16/2025 10:15 AM CDT) Protein, ur, quant 4.1 mg/dL Comment: Interpretive Data No reference range established. Current interpretive data was last revised 2019. Creatinine Ur 109.5 mg/dL [facility] Comment: Interpretive Data No reference range established. Current interpretive data was last revised 2019. Protein/creatinin e ratio 37.4 0.0 - 180.0 mg/g CR [facility] Urine 03/16/2025 10:1 5 AM CDT 03/16/2025 4:40 PM CDT Tal Sharp DO LAB URINE ORDERABLES Final Result Performing Organization Address [facility] Co de Phone Number [facility] [place] [address] [place] [address] * Albumin Creatinine Ratio, Urine (03/16/2025 10:15 AM CDT) Albumin Ur <12.0 mg/L Comment: Interpretive Data No reference range established. Current interpretive data was last revised 2019. Creatinine Ur 109.5 mg/dL [facility] Comment: Interpretive Data No reference range established. Current interpretive data was last revised 2019. Albumin Creatinine Ratio, Ur <11 1 - 29 mg/g [facility] Urine 03/16/2025 10:1 5 AM CDT 03/16/2025 4:40 PM CDT Tal Sharp DO LAB URINE ORDERABLES Final Result Performing Organization Address [facility] Co de Phone Number [facility] [place] [address] [facility] [place] [address] * (ABNORMAL) eGFR (03/12/2025 3:04 PM CDT) eGFR 37(L) >=60 mL/min/1. 73 m2 Comment: Interpretive Data Reference Interval Normal >/= 90 mL/min/1.73m2 Mildly decreased* 60 - 89 mL/min/1.73m2 Mildly to moderately decreased 45 - 59 mL/min/1.73m2 Moderately to severely decreased 30 - 44 mL/min/1.73m2 Severely decreased 15 - 29 mL/min/1.73m2 Kidney Failure < 15 mL/min/1.73m2 *Relative to young adult level Estimated glomerular filtration rate is determined by the 2020 CKD-EPI equation recommended by the National Kidney Foundation (A Unifying Approach to GFR Estimation: Recommendations of the NKF-ASK Task Force on Reassessing the Inclusion of Race in Diagnosing Kidney Disease, JASN 2020). The CKD-EPI equation should not be used for patients with unstable renal function and has not been validated in children and those over 70. Current interpretive data was last reviewed 2021. Blood 03/12/2025 3:04 PM CDT 03/12/2025 10:01 PM CDT Tal Sharp DO LAB BLOOD ORDERABLES Final Result [facility] [place] [address] [place] [address] * (ABNORMAL) Cystatin C (03/12/2025 3:04 PM CDT) Cystatin C 1.44(H) 0.60 - 1.20 mg/L Comment: Interpretive Data Cystatin C concentrations vary widely in the first month of life, particularly in pre-term infants. Concentrations gradually diminish to adult levels by 1 year of life. Concentrations tend to rise with diminishing renal function in individuals greater than 60 years of age. Current Interpretive Data was last revised on 2020. Testing performed by: [facility], [facility], [place]., [address] Blood 03/12/2025 3:04 PM CDT 03/13/2025 2:12 AM CDT Narrative [facility] [place] 03/13/2025 2:36 AM CDT Fax results to Dr moisés sharp [phone] Tal Sharp DO LAB BLOOD ORDERABLES Final Result [facility] [place] [address] [place] [address] * Vitamin D 25 hydroxy (03/12/2025 3:04 PM CDT) Vitamin D 25-OH 48 30 - 80 ng/mL Blood 03/12/2025 3:04 PM CDT 03/12/2025 9:23 PM CDT Narrative [facility] - 03/12/2025 10:49 PM CDT Fax results to Dr moisés sharp [phone] Tal Sharp DO LAB BLOOD ORDERABLES Final Result Performing Organization Address City/Va Hospital/ZIP Co de Phone Number [facility] [place] [address] [place] [address] * (ABNORMAL) CBC without differential (03/12/2025 3:04 PM CDT) [facility] WBC 10.16(H) 3.80 - 9.90 K/cumm Hgb 9.6(L) 11.9 - 15.5 g/dL [facility] Hct 31.4(L) 35.6 - 45.5 % [facility] Plt 498(H) 150 - 400 K/cumm [facility] MPV 11.1 9.1 - 12.3 fL [facility] RBC 3.45(L) 3.90 - 5.20 M/cumm [facility] MCV 91.0 81.3 - 96.4 fL [facility] MCH 27.8 27.1 - 33.3 pg [facility] MCHC 30.6(L) 32.3 - 35.7 g/dL [facility] RDW CV 16.1(H) 11.1 - 14.9 % [facility] RDW SD 52.6(H) 35.7 - 48.1 fL [facility] NRBC abs 0.00 0.00 - 0.01 K[facility] Blood Venous blood specimen / Unknown 03/12/2025 3:04 PM CDT 03/12/2025 9:23 PM CDT Narrative [facility] - 03/12/2025 10:05 PM CDT Fax results to Dr moisés sharp [phone] Tal Sharp DO LAB BLOOD ORDERABLES Final Result Performing Organization Address [facility]/ZIP Co de Phone Number [facility] [place] [address] [place] [address] * Magnesium (03/12/2025 3:04 PM CDT) Pathologist [facility] Magnesium 2.1 1.4 - 2.5 mg/dL Blood Venous blood specimen / Unknown 03/12/2025 3:04 PM CDT 03/12/2025 9:23 PM CDT Narrative [facility] - 03/12/2025 10:20 PM CDT Fax results to Dr moisés sharp [phone] Tal Sharp DO LAB BLOOD ORDERABLES Final Result Performing Organization Address City/[facility] Hospital/[facility] Co de Phone Number [facility] [place] [address] [place] [place] [address] * Hemoglobin A1c (03/12/2025 3:04 PM CDT) [facility] Hgb A1C 5.4 4.0 - 5.6 % Estimated Average Glucose 108 mg/dL [facility] Comment: The ADA recommends reporting an estimated Average Glucose (eAG) with all Hemoglobin A1c results using the equation derived from a study of 507 normal and diabetic adults. Minority populations were underrepresented and children were not included. (Diabetes Care 31:7131-3887, 2008). The eAG is not equivalent to a fasting glucose. Blood Venous blood specimen / Unknown 03/12/2025 3:04 PM CDT 03/12/2025 9:23 PM CDT Narrative [facility] C[facility] - 03/12/2025 10:19 PM CDT Fax results to Dr moisés sharp [phone] Tal Sharp DO LAB BLOOD ORDERABLES Final Result [facility] [place] [address] Department [employer] [place], [place] [id number] * (ABNORMAL) Renal function panel (03/12/2025 3:04 PM CDT) [facility] Sodium 140 135 - 145 mmol/L Potassium, pl 4.9 3.3 - 4.9 mmol/L [facility] Chloride 107 97 - 110 mmol/L [facility] CO2 20(L) 22 - 32 mmol/L [facility] Anion gap 13 2 - 15 mmol/L [facility] BUN 21 6 - 25 mg/dL [facility] Creatinine 1.41(H) 0.60 - 1.10 mg/dL [facility] Glucose 102 70 - 199 mg/dL [facility] Comment: Interpretive Data Fasting glucose >/= 126 mg/dl is diagnostic for diabetes. Fasting is defined as no caloric intake for at least 8 hours. Fasting glucose between 100 mg/dl to 125 mg/dl is diagnostic of prediabetes. In a patient with classic symptoms of hyperglycemia or hyperglycemic crisis, a random glucose >/= 200 mg/dl is diagnostic for diabetes. In the absence of unequivocal hyperglycemia, results should be confirmed by repeat testing. The classification and Diagnosis of Diabetes Diabetes Care 202; 46: S19-S40. Current interpretive data was last revised 2022. Calcium 10.0 8.5 - 10.3 mg/dL [facility] Phosphorus, pl 3.1 2.3 - 4.5 mg/dL [facility] Albumin 4.0 3.5 - 5.0 g/dL [facility] Blood Venous blood specimen / Unknown 03/12/2025 3:04 PM CDT 03/12/2025 9:23 PM CDT Narrative [facility] - 03/12/2025 10:20 PM CDT Fax results to Dr moisés sharp [phone] Tal Sharp DO LAB BLOOD ORDERABLES Final Result [facility] [address] [place] [address] * (ABNORMAL) eGFR (02/26/2025 12:00 PM CDT) eGFR 39(L) >=60 mL/min/1. 73 m2 Comment: Interpretive Data Reference Interval Normal >/= 90 mL/min/1.73m2 Mildly decreased* 60 - 89 mL/min/1.73m2 Mildly to moderately decreased 45 - 59 mL/min/1.73m2 Moderately to severely decreased 30 - 44 mL/min/1.73m2 Severely decreased 15 - 29 mL/min/1.73m2 Kidney Failure < 15 mL/min/1.73m2 *Relative to young adult level Estimated glomerular filtration rate is determined by the 2020 CKD-EPI equation recommended by the National Kidney Foundation (A Unifying Approach to GFR Estimation: Recommendations of the NKF-ASK Task Force on Reassessing the Inclusion of Race in Diagnosing Kidney Disease, JASN 2020). The CKD-EPI equation should not be used for patients with unstable renal function and has not been validated in children and those over 70. Current interpretive data was last reviewed 2021. Blood 02/26/2025 12:0 0 PM CDT 02/26/2025 5:47 PM CDT Oralia Del Angel [employer] WORK[employer] LAB BLOOD ORDERABLES Fi nal Result Performing Organization Address City/Va Hospital/ZIP Co de Phone Number [facility] [place] [address] [place] [address] * Vitamin D 25 hydroxy (02/26/2025 12:00 PM CDT) Pathologist [facility] Vitamin D 25-OH 51 30 - 80 ng/mL Blood Venous blood specimen / Unknown 02/26/2025 12:00 PM CDT 02/26/2025 5:33 PM CDT Oralia DelA ngel NP LAB BLOOD ORDERABLES Fi nal Result Performing Organization Address City/[facility]/ZIP Co de Phone Number [facility] NGUYEN [address] [address] [place] [address] * (ABNORMAL) CBC without differential (02/26/2025 12:00 PM CDT) WBC 10.48(H) 3.80 - 9.90 K/cumm Hgb 10.0(L) 11.9 - 15.5 g/dL [facility] Hct 33.2(L) 35.6 - 45.5 % [facility] Plt 399 150 - 400 K/cumm [facility] MPV 11.1 9.1 - 12.3 fL [facility] RBC 3.60(L) 3.90 - 5.20 M/cumm [facility] MCV 92.2 81.3 - 96.4 fL [facility] MCH 27.8 27.1 - 33.3 pg [facility] MCHC 30.1(L) 32.3 - 35.7 g/dL [facility] RDW CV 15.5(H) 11.1 - 14.9 % [facility] RDW SD 52.1(H) 35.7 - 48.1 fL [facility] NRBC abs 0.00 0.00 - 0.01 K/cumm CERNER [facility] Blood Venous blood specimen / Unknown 02/26/2025 12:00 PM CDT 02/26/2025 5:33 PM CDT Oralia Del Angel NP LAB BLOOD ORDERABLES Fi nal Result Performing Organization Address [facility] de Phone Number LAKSHMI [id number] [address] [facility] [place] [address] * TSH (02/26/2025 12:00 PM CDT) Thyroid Stimulating Hormone 1.34 0.30 - 4.20 mcIUnit/mL Blood Venous blood specimen / Unknown 02/26/2025 12:00 PM CDT 02/26/2025 5:33 PM CDT Oralia Del Angel NP LAB BLOOD ORDERABLES Fi nal Result Performing Organization Address [facility] de Phone Number [facility] [id number] [address] [facility] [place] [address] * T4, free (02/26/2025 12:00 PM CDT) Free T4 1.07 0.90 - 1.70 ng/dL Blood Venous blood specimen / Unknown 02/26/2025 12:00 PM CDT 02/26/2025 5:33 PM CDT Oralia Del Angel NP LAB BLOOD ORDERABLES Fi nal Result Performing Organization Address [facility] de Phone Number LAKSHMI [address] [address] [facility] [place] [address] * (ABNORMAL) Hemoglobin A1c (02/26/2025 12:00 PM CDT) Pathologist [facility] Hgb A1C 5.7(H) 4.0 - 5.6 % Estimated Average Glucose 117 mg/dL LAKSHMI CEDILLO Comment: The ADA recommends reporting an estimated Average Glucose (eAG) with all Hemoglobin A1c results using the equation derived from a study of 507 normal and diabetic adults. Minority populations were underrepresented and children were not included. (Diabetes Care 31:2924-5310, 2008). The eAG is not equivalent to a fasting glucose. Blood Venous blood specimen / Unknown 02/26/2025 12:00 PM CDT 02/26/2025 5:33 PM CDT Oralia Del Angel [employer] WORK[employer] LAB BLOOD ORDERABLES Fi nal Result Performing Organization Address [facility] de Phone Number LAKSHMI [address] [address] [facility] [place] [address] * Folate (02/26/2025 12:00 PM CDT) [facility] Folic acid >20.0 >=5.0 ng/mL Blood Venous blood specimen / Unknown 02/26/2025 12:00 PM CDT 02/26/2025 5:33 PM CDT Oralia Del Angel [employer] WORK[employer] LAB BLOOD ORDERABLES Fi nal Result Performing Organization Address [facility] de Phone Number LAKSHMI [address] [address] [facility] [place] [address] * Vitamin B12 (02/26/2025 12:00 PM CDT) [facility] Vitamin B12 617 230 - 1,250 pg/mL Blood Venous blood specimen / Unknown 02/26/2025 12:00 PM CDT 02/26/2025 5:33 PM CDT Oralia Barajas Bean GONZALEZ LAB BLOOD ORDERABLES Fi nal Result LAKSHMI [address] [address] [facility] [place] [address] * Lipid panel (02/26/2025 12:00 PM CDT) Cholesterol 153 30 - 199 mg/dL Comment: Interpretive Data Ages < or = 19 years Acceptable: <170 mg/dL Borderline high: 170-199 mg/dL High: >or= 200 mg/dL Ages > or = 20 years Desirable: <200 mg/dL Borderline high: 200-239 mg/dL High: >or= 240 mg/dL Literature References: 1. Expert Panel on Integrated Guidelines for Cardiovascular Health and Risk Reduction in Children and Adolescents. Pediatrics 2011;128:S213 2. NCEP Expert Panel. Circulation 2004;110:227 Current Interpretive Data was last revised on 2018. Triglycerides 59 <=149 mg/dL LAKSHMI CEDILLO Comment: Interpretive Data Ages < or = 9 years Acceptable: <75 mg/dL Borderline high: 75-99 mg/dL High: >or= 100 mg/dL Ages 10 to 20 years Acceptable: <90 mg/dL Borderline high: 90-129 mg/dL High: >or= 130 mg/dL Ages > or = 20 years Desirable: <150 mg/dL Borderline high: 150-199 mg/dL High: 200-499 mg/dL Very high: >or= 499 mg/dL Literature References: 1. Expert Panel on Integrated Guidelines for Cardiovascular Health and Risk Reduction in Children and Adolescents. Pediatrics 2011;128:S213 2. NCEP Expert Panel. Circulation 2004;110:227 Current Interpretive Data was last revised on 2018. HDL 68 >=40 mg/dL LAKSHMI CEDILLO Comment: Interpretive Data Ages < or = 19 years Acceptable: >45 mg/dL Borderline low: 40-45 mg/dL Low: <40 mg/dL Ages > or = 20 years Desirable: >or= 60 mg/dL Low: <40 mg/dL Literature References: 1. Expert Panel on Integrated Guidelines for Cardiovascular Health and Risk Reduction in Children and Adolescents. Pediatrics 2011;128:S213 2. NCEP Expert Panel. Circulation 2004;110:227 Current Interpretive Data was last revised on 2018. LDL, calculated 73 <=129 mg/dL LAKSHMI CEDILLO Comment: Interpretive Data Ages < or = 19 years Acceptable: <110 mg/dL Borderline high: 110-129 mg/dL High: >or= 130 mg/dL Ages > or = 20 years Optimal: <100 mg/dL Near optimal: 100-129 mg/dL Borderline high: 130-159 mg/dL High: >160 mg/dL Calculated using the Neno LDL-C estimating equation. This equation was implemented on 2024. Prior to this date LDL-C was estimated using the Friedewald equation. Literature References: 1. Expert Panel on Integrated Guidelines for Cardiovascular Health and Risk Reduction in Children and Adolescents. Pediatrics 2011;128:S213 2. NCEP Expert Panel. Circulation 2004;110:227 3. Neno Ding et al. HAMILTON Cardiol. 2019January 08;5(5):540-548. doi: 10.1001/[email or web address] Current Interpretive Data was last revised on 2024. Non-HDL Cholesterol 85 mg/dL LAKSHMI CEDILLO Comment: Interpretive Data Ages < or = 19 years Acceptable: <120 mg/dL Borderline high: 120-144 mg/dL High: >145 mg/dL Ages > or = 20 years When triglycerides are >200 mg/dL, Non-HDL cholesterol is a secondary target of therapy with treatment goals that are 30 mg/dL greater than the LDL cholesterol target. Literature References: 1. Expert Panel on Integrated Guidelines for Cardiovascular Health and Risk Reduction in Children and Adolescents. Pediatrics 2011;128:S213 2. NCEP Expert Panel. Circulation 2004;110:227 Current Interpretive Data was last revised on 2018. Chol/HDL ratio 2 LAKSHMI CEDILLO Blood Venous blood specimen / Unknown 02/26/2025 12:00 PM CDT 02/26/2025 5:33 PM CDT us Oralia Del Angel NP LAB BLOOD ORDERABLES Fi nal Result LAKSHMI CEDILLO [address] [address] [facility] [place] [address] * (ABNORMAL) Comprehensive metabolic panel (02/26/2025 12:00 PM CDT) Sodium 141 135 - 145 mmol/L Potassium, pl 4.4 3.3 - 4.9 mmol/L [facility] Chloride 107 97 - 110 mmol/L CERNER [facility] CO2 23 22 - 32 mmol/L CERNER [facility] Anion gap 11 2 - 15 mmol/L CERNER CH BUN 20 6 - 25 mg/dL CERNER [facility] Creatinine 1.36(H) 0.60 - 1.10 mg/dL CERNER CH Glucose 94 70 - 199 mg/dL CERNER CH Comment: Interpretive Data Fasting glucose >/= 126 mg/dl is diagnostic for diabetes. Fasting is defined as no caloric intake for at least 8 hours. Fasting glucose between 100 mg/dl to 125 mg/dl is diagnostic of prediabetes. In a patient with classic symptoms of hyperglycemia or hyperglycemic crisis, a random glucose >/= 200 mg/dl is diagnostic for diabetes. In the absence of unequivocal hyperglycemia, results should be confirmed by repeat testing. The classification and Diagnosis of Diabetes Diabetes Care 2021; 46: S19-S40. Current interpretive data was last revised 2022. 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 FINDINGS: AP LUMBAR SPINE L1-L4: Total BMD is 1.184 g/cm2 T-score is 1.2 LEFT HIP: Total BMD is 1.134 g/cm2 T-score is 1.6 Femoral neck BMD is 1.042 g/cm2 T-score is 1.7 FRAX: FRAX not reported due to T-scores of hip, femoral neck and/or spine being at or above -1.0 (Normal). IMPRESSION: Based on the lumbar spine bone mineral density (T-score 1.2 ) the patient has normal bone mass . REFERENCE: Bone mineral density: Normal (T-score above or = -1.0) Low bone mass (T-score between -1.0 and -2.5) replaces the previously used term osteopenia Osteoporosis (T-score = or below -2.5) Medical evaluation for secondary causes of low bone mineral density may be appropriate. FRAX is a World Health Organization validated fracture risk assessment tool that calculates a person's 10 year probability of a major osteoporosis related fracture and hip fracture. According to the National Osteoporosis Foundation guidelines, postmenopausal women and men age 50 or older with low bone mass and a 10 year probability of a major osteoporosis related fracture = or greater than 20% or a 10 year probability of a hip fracture = or greater than 3% should be considered for treatment. For further information, including treatment recommendations, please refer to the 2013 ISCD Official Positions (http://www.iscd.org) and the NOF's Clinician's Guide to Prevention and Treatment of Osteoporosis (http://www.nof.org/professionals/clinical-guidelines) THIS IS AN ELECTRONICALLY VERIFIED FINAL REPORT 10/04/2022 12:12 AM - Electronically signed by Tim Garcia M.D. MF: [email or web address] Report ID: [id number] Reading Location: [place] [address] Procedure Note Tim aGrcia MD - 10/04/2022 EXAM DESCRIPTION: DEXA AXIAL SKELETON BONE DENSITY 1 OR MORE SITES REASON FOR STUDY: 77 y/o year old F with given history ofscreening. 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 FINDINGS: AP LUMBAR SPINE L1-L4: Total BMD is 1.184 g/cm2 T-score is 1.2 LEFT HIP: Total BMD is 1.134 g/cm2 T-score is 1.6 Femoral neck BMD is 1.042 g/cm2 T-score is 1.7 FRAX: FRAX not reported due to T-scores of hip, femoral neck and/or spine beingat or above -1.0 (Normal). IMPRESSION: Based on the lumbar spine bone mineral density (T-score 1.2 ) thepatient has normal bone mass . REFERENCE: Bone mineral density: Normal (T-score above or = -1.0) Low bone mass (T-score between -1.0 and -2.5) replaces thepreviously used term osteopenia Osteoporosis (T-score = or below -2.5) Medical evaluation for secondary causes of low bone mineral density may be appropriate. FRAX is a World Health Organization validated fracture risk assessmenttool that calculates a person's 10 year probability of a major osteoporosisrelated fracture and hip fracture. According to the National OsteoporosisFoundation guidelines, postmenopausal women and men age 50 or older with low bonemass and a 10 year probability of a major osteoporosis related fracture = or greater than 20% or a 10 year probability of a hip fracture = or greaterthan 3% should be considered for treatment. For further information, including treatment recommendations, please referto the 2013 ISCD Official Positions (http://www.iscd.org) and the NOF's Clinician's Guide to Prevention and Treatment of Osteoporosis (http://www.nof.org/professionals/clinical-guidelines) THIS IS AN ELECTRONICALLY VERIFIED FINAL REPORT 10/04/2022 12:12 AM - Electronically signed by Tim Garcia M.D. MF: [email or web address] Report ID: [id number] Reading Location: [place] [address] Louisa Sasha Arleen DO IMG DXA PROCEDURES Radha l Result from Last 3 Months or Most Recently Relevant to Health Maintenance Insurance MEDICARE [employer] [place] [place] [address] OF [place] [employer] [facility]ICARE [facility] MEDICARE Advance Directives For more information, please contact: [phone] * Full Code (Latest Code Status on File) Date Activated Date Inactivated Comments 02/27/2023 4:46 PM 02/28/2023 6:35 PM * Full Code Date Activated Date Inactivated Comments 09/07/2021 8:31 AM 09/08/2021 4:39 AM * Full Code Date Activated Date Inactivated Comments 08/01/2021 9:16 PM 08/05/2021 7:06 PM Care Teams Water Quality Specialist Relationship Specialty Start Date End Date Yrn Bass PA [address] [place] [address] PCP - General Internal Medicine 11/21/24 Roger Dey DO Medical Oncologist/Tank Builder Helper Hematology and Oncology 11/02/20 Kasi Grullon MD Consulting Physician Cardiology 09/20/21 Roger Lebron MD [address] [place] [address] [address] [place] [address] Consulting Physician Pain Management 06/10/22 Puneet Rizvi MD [address] [facility] [address] [place] [address] Consulting Physician Neurosurgery 01/09/22 Tal Sharp DO [facility] [address] [place] [address] Consulting Physician Nephrology 11/21/24
--- OUTSIDE RECORDS SUMMARY | 2025-04-04 19:33 | XMS_ITS | Clinical Summary ---
Author Organization [facility] Address [address] [place] [address] Phone Care Team Providers Care Eeg Technologist Name Role Phone Roger Dey DO Unavailable [phone] Kasi Grullon MD Unavailable [phone] Roger Lebron MD Unavailable [phone] Puneet Rizvi MD Unavailable [phone] Yrn Bass Primary Care Provider + Tal Sharp DO Unavailable [phone] Allergies Active Allergy Reactions Criticality Noted Date [...] Deficiency Prevention Take 1 tablet by mouth heater installer before breakfast Active amiodarone (PACERONE) 200 mg tabletIndicatio ns:a-fib Take 1 tablet (200 mg total) by mouth heater installer before breakfast 3 Active gabapentin (NEURONTIN) 800 mg tabletIndicatio ns:Neuropathic Pain Take 900 mg by mouth 3 (three) times a day 3 Active cetirizine (ZyrTEC) 10 mg tabletIndicatio ns:Seasonal Allergic Rhinitis Take 1 tablet (10 mg total) by mouth heater installer before breakfast 3 Active losartan (COZAAR) 100 mg tabletIndicatio ns:hypertension Take 1 tablet (100 mg total) by mouth heater installer before breakfast 3 Active montelukast (SINGULAIR) 10 [...] guidance. Assessment & Plan (08/30/2023 8:07 PM CRYSTALIZER OPERATOR): Left atrial appendage occlusion/watchman device placement on [...] Onychomycosis of toenail 09/17/2022 Lung nodule 01/12/2022 senior care current use of anticoagulant Severe aortic stenosis 08/01/2021 Overview (08/03/2021): Added automatically from request for surgery [id number] Thoracic degenerative disc disease 06/29/2021 Lumbar radiculopathy [...] 01/14/2001 Assessment & Plan (08/30/2023 8:09 PM CRYSTALIZER OPERATOR): Blood pressure elevated. Repeat improved but remains above goal. Home log noted blood pressure of 140-150's/60-70's. Will forward home blood pressure log to her general exchange engineer. Assessment & Plan (05/23/2023 9:49 AM CDT): [...] was discontinued in the past. Atrial fibrillation Encounters Date Type Department Care Team Description 04/01/2025 11:00 AM CDT Office Visit [facility] Cardiology [address] [place] [address] Kasi Grullon MD 03/23/2025 Telephone [facility] [address] [place] [address] [place] [address] Floridalma Bach Test Results; Anemia 03/16/2025 10:15 AM CDT - 03/16/2025 11:59 PM CDT Hospital Encounter [address] [address] Discharge Disposition: Discharge to home or self care 03/16/2025 10:15 AM CDT Lab [facility] Outpatient Lab at [address] [address] 03/12/2025 3:04 PM CDT - 03/12/2025 11:59 PM CDT Hospital Encounter [address] [address] Chronic kidney disease, stage III (moderate) (HCC); Heart disease, unspecified; Nodular calcific aortic valve stenosis; Heart valve replaced by transplant; Paroxysmal atrial fibrillation (HCC); Gastroesophagitis; Carcinoma in situ of colon; 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, 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); Screening for diabetes mellitus Discharge Disposition: Discharge to home or self care 03/12/2025 3:00 PM CDT Lab [facility] Outpatient Lab at [address] [address] Chronic kidney disease, stage III (moderate) (HCC) (Primary Dx); Heart disease, unspecified; Nodular calcific aortic valve stenosis; Heart valve replaced by transplant; Paroxysmal atrial fibrillation (HCC); Gastroesophagitis; Carcinoma in situ of colon; 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, 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); Screening for diabetes mellitus 02/26/2025 3:17 PM CDT - 02/26/2025 11:59 PM CDT Hospital Encounter [address] [address] Peripheral nerve disorder; Essential hypertension, malignant; Mixed hyperlipidemia; Nontoxic uninodular goiter Discharge Disposition: Discharge to home or self care 02/26/2025 10:30 AM CDT Lab [facility] Outpatient Lab at [address] [address] Peripheral nerve disorder (Primary Dx); Essential hypertension, malignant; Mixed hyperlipidemia; Nontoxic uninodular goiter 02/19/2025 11:30 AM CDT Office Visit [facility] [facility] [address] [place] [address] [place] [address] Barbie Tafoya NP Paroxysmal atrial fibrillation (HCC) (Primary Dx) 01/27/2025 Telephone [facility] [address] [place] [address] [place] [address] Barbie Tafoya NP from Last 3 Months Immunizations Immunization Administration Dates Next Due Influenza, Unspecified 06/10/2019,2016,10/18/2015,2012 Moderna SARS-CoV-2 Monovalen t Vaccination (12+ YRS) 10/29/2020 Pneumococcal Conjugate PCV 13 09/24/2020 Tdap 09/24/2020 ZOSTER LIVE 10/26/2016,10/18/2015 Surgical History Surgery Date Site/Laterality Comments HIP ARTHROPLASTY 09/10/2012 - 09/09/2013 Right Hip replacement COLON SURGERY colon cancer CATARACT EXTRACTION Right 2020 CARDIAC CATHETERIZATION 09/07/2021 COLONOSCOPY APPENDECTOMY ANOMALOUS PULMONARY VENOUS RETURN REPAIR, TOTAL 09/19/2021 Medical History Medical History Date Comments Hypertension Hypertension Disorder of thyroid Thyroid dise ase Cancer (HCC) colon Low back pain Atrial fibrillation (HCC) Aortic stenosis Obesity Depression Mitral valve regurgitation Spondylolisthesis of lumbar region Chronic bilateral low back pain with bilateral s ciatica Thoracic spinal stenosis Lumbar radiculopathy Lung nodule Family History Medical History Relation Name Comments Cancer Other 1 Family history of Cancer; Diabetes Other 2 Family history of Diabetes mellitus; Hypertension Other 3 Family history of Hypertension; Anesthesia problems Neg Hx Relation Name Status Comments Other 1 Other 2 Other 3 Social History Tobacco Use Types Packs/Day Years Used Date Smoking Tobacco: Former Cigarettes 0.3 15 1 977 - 1992 Smokeless Tobacco: Never Tobacco Cessation:Counseling Given: Not [...] on file Legal Sex Female 1:42 PM CRYSTALIZER OPERATOR Gender Identity Not on file Sexual Orientation Not on file Occupation Industry Job Start Date Job End Date Retired Not on file Not on file Not on file Obstetrics History Para Term AB IAB SAB Ectopic Multiple Livin g Live Births 3 3 3 Date Outcome GA Total Labor Labor/2nd/3rd Weight Sex Type Anes PTL Geraldine A1 A5 Name Clin 1963 Term 1968 Term 1977 Term Comments Post Menopause Last Filed Vital Signs Vital Sign Reading [...] 04/01/2025 11:07 AM CDT Plan of Treatment Health Maintenance Due Date Last Done Comments Dilated Eye Exam 1943 Foot Exam 1943 Hepatitis B Screening 1961 Zoster Vaccine (2 of 3) 12/21/2016 10/26/2016, 10/18 Pneumococcal vaccine 65+ (2 of 2 - PPSV23) 11/19/2020 09/24/2020 Well Visit 65+ 09/21/2023 09/21/2022, 09/16/2021 Depression Screening 01/09/2024 01/08/2023, 01/08/2023, 06/29/2021, Additional history exists Fall Risk Assessment 04/11/2024 04/11/2023 Covid-19 Vaccine (5 - 4-2 5 season) 2024 12/30/2021, 07/06/2021, 11/26/2020, Additional history exists Osteoporosis Screening-Bone Density Scan 10/03/2024 10/03/2022 Influenza Vaccine (#1) 2025 9, 10/26/2016, 10/18/2015, Additional history exists Hemoglobin A1C 09/12/2025 03/12/2025, 02/08, 11/07/2024, Additional history exists Lipid Panel 02/26/2026 02/26/2025, 02/09, 08/01/2021, Additional history exists eGFR 03/12/2026 03/12/2025, 02/08, 11/19/2024, Additional history exists Albumin Creatinine Ratio, Urine 03/16/2026 03/16/2025, 11/07/2024, 05/22/2024 DTaP/Tdap/Td Vaccine (2 - Td or Tdap) 09/24/2030 09/24/2020 Goals Goal Patient Goal Type Associated Problems Recent Progress Patient-Stated? Author [facility] Luz García, DIPESH Note: Patient will establish a comfort-function goal and identify the pain level that will allow the patient to perform desired activities and achieve an acceptable quality of life. Medical Devices Implanted Type Area Automotive Artist Device Identifier Shelf Expiration Date Model / Serial / Lot DaiEachbaby Willow[employer] [id number] Angio-Seal Evolution 6fr .035in Guidewire Bypass Tube Suture - [id number] - [id number] Implanted:Qty: 1 on 09/19/2021 by Kasi Grullon MD at [facility] Collagen [employer] Willow 02/07/2022 [id number] / [id number] [employer] Percutaneous Transcatheter Amplatzer Amulet 25mm 8-[id number] - [id number] - [id number] Implanted:Qty: 1 on 02/27/2023 by Chau Beltran MD at [facility] Ductal Occluder Left: Atrial Appendage [employer] 05/10/2027 9-ACP2-0 10-025 / [id number] / [id number] Other - See Comments Other - see comments Right: Hip Description:Hip replacement [employer] 09418-13 Device Clsr Perclose Prostyle Sut-Mediatd Closure-Repair Sys - [id number] Implanted:Qty: 1 on 09/19/2021 by Kasi Grullon MD at [facility] Other - see comments [employer] 06/09/2023 [id number] / / [id number] Description:perclose [employer] [id number] Valve Heart 23mm Henny 3 Transcatheter - [id number] - [id number] Implanted:Qty: 1 on 09/19/2021 by Kasi Grullon MD at [facility] Prosthetic Valve Aortic Valve [employer] 06/02/2023 [id number] / [id number] / [id number] [employer] Device Clsr Perclose Prostyle Sut-Mediatd Closure-Repair Sys 57776-72 - [id number] - [id number] Implanted:Qty: 1 on 02/27/2023 by Chau Beltran MD at [facility] N/A: Femoral Vein [employer] 12/08/2024 [id number] / [id number] / [id number] Procedures Procedure Name Priority Date/Time Associated Diagnosis [...] Read Routine (OP Routine) 10/03/2022 10:44 AM CRYSTALIZER OPERATOR Encounter for screening for osteoporosis Menopause from Last 3 Months or Most Recently Relevant to Health Maintenance Results * Protein / creatinine ratio, urine, random (03/16/2025 10:15 AM CDT) Pathologist [facility] Protein, ur, quant 4.1 mg/dL Comment: Interpretive Data No reference range established. Current interpretive data was last revised 2019. Creatinine Ur 109.5 mg/dL [facility] Comment: Interpretive Data No reference range established. Current interpretive data was last revised 2019. Protein/creatinin e ratio 37.4 0.0 - 180.0 mg/g CR [facility] Urine 03/16/2025 10:1 5 AM CDT 03/16/2025 4:40 PM CDT Tal Sharp DO LAB URINE ORDERABLES Final Result Performing Organization Address [facility] Co de Phone Number [facility] [address] [employer] [place] [place] [address] * Albumin Creatinine Ratio, Urine (03/16/2025 10:15 AM CDT) Pathologist [facility] Albumin Ur <12.0 mg/L Comment: Interpretive Data No reference range established. Current interpretive data was last revised 2019. Creatinine Ur 109.5 mg/dL [facility] Comment: Interpretive Data No reference range established. Current interpretive data was last revised 2019. Albumin Creatinine Ratio, Ur <11 1 - 29 mg/g [facility] Urine 03/16/2025 10:1 5 AM CDT 03/16/2025 4:40 PM CDT Tal Sharp DO LAB URINE ORDERABLES Final Result Performing Organization Address [facility]/ZIP Co de Phone Number [facility] [address] [facility] [place] [address] * (ABNORMAL) eGFR (03/12/2025 3:04 PM CDT) [facility] eGFR 37(L) >=60 mL/min/1. 73 m2 Comment: [...] DO LAB BLOOD ORDERABLES Final Result [facility] [address] Department [place] [address] * (ABNORMAL) Cystatin C (03/12/2025 3:04 PM [...] last revised on 2020. Testing performed by: [facility], [place]., [address] Blood 03/12/2025 3:04 PM CDT 03/13/2025 2:12 AM CDT Narrative [facility] [place] 03/13/2025 2:36 AM CDT Fax results to Dr moisés sharp [phone] Tal Sharp DO LAB BLOOD ORDERABLES Final Result Performing Organization Address [facility]/ZIP Co de Phone Number [facility] [place] [address] [facility] [place] [address] * Vitamin D 25 hydroxy (03/12/2025 3:04 PM CDT) [facility] Vitamin D 25-OH 48 30 - 80 ng/mL Blood 03/12/2025 3:04 PM CDT 03/12/2025 9:23 PM CDT Narrative [facility] - 03/12/2025 10:49 PM CDT Fax results to Dr moisés sharp [phone] Tal Sharp DO LAB BLOOD ORDERABLES Final Result Performing Organization Address [facility] Co de Phone Number [facility] [place] [address] [place] [address] * (ABNORMAL) CBC without differential (03/12/2025 3:04 PM CDT) [facility] WBC 10.16(H) 3.80 - 9.90 K/cumm Hgb 9.6(L) 11.9 - 15.5 g/dL [facility] Hct 31.4(L) 35.6 - 45.5 % [facility] Plt 498(H) 150 - 400 K/cumm [facility] MPV 11.1 9.1 - 12.3 fL [facility] RBC 3.45(L) 3.90 - 5.20 M/cumm [facility] MCV 91.0 81.3 - 96.4 fL [facility] MCH 27.8 27.1 - 33.3 pg [facility] MCHC 30.6(L) 32.3 - 35.7 g/dL [facility] RDW CV 16.1(H) 11.1 - 14.9 % [facility] RDW SD 52.6(H) 35.7 - 48.1 fL [facility] NRBC abs 0.00 0.00 - 0.01 K/cumm [facility] Blood Venous blood specimen / Unknown 03/12/2025 3:04 PM CDT 03/12/2025 9:23 PM CDT Narrative [facility] - 03/12/2025 10:05 PM CDT Fax results to Dr moisés sharp [phone] Tal Sharp DO LAB BLOOD ORDERABLES Final Result Performing Organization Address [facility] Co de Phone Number [facility] [address] [place] [address] * Magnesium (03/12/2025 3:04 PM CDT) [facility] Magnesium 2.1 1.4 - 2.5 mg/dL Blood Venous blood specimen / Unknown 03/12/2025 3:04 PM CDT 03/12/2025 9:23 PM CDT Therese MARTINS - 03/12/2025 10:20 PM CDT Fax results to Dr moisés sharp [phone] Tal Sharp DO LAB BLOOD ORDERABLES Final Result Performing Organization Address [facility] de Phone Number [facility] [address] [place] [address] * Hemoglobin A1c (03/12/2025 3:04 PM CDT) [facility] Hgb A1C 5.4 4.0 - 5.6 % Estimated Average Glucose 108 mg/dL [facility] Comment: The ADA recommends reporting an estimated Average Glucose (eAG) with all Hemoglobin A1c results using the equation derived from a study of 507 normal and diabetic adults. Minority populations were underrepresented and children were not included. (Diabetes Care 31:9544-1556, 2008). The eAG is not equivalent to a fasting glucose. Blood Venous blood specimen / Unknown 03/12/2025 3:04 PM CDT 03/12/2025 9:23 PM CDT Therese MARTINS - 03/12/2025 10:19 PM CDT Fax results to Dr moisés sharp [phone] Tal Sharp DO LAB BLOOD ORDERABLES Final Result [facility] [place] [address] [place] [address] * (ABNORMAL) Renal function panel (03/12/2025 3:04 PM CDT) Sodium 140 135 - 145 mmol/L Potassium, pl 4.9 3.3 - 4.9 mmol/L [facility] Chloride 107 97 - 110 mmol/L [facility] CO2 20(L) 22 - 32 mmol/L [facility] Anion gap 13 2 - 15 mmol/L [facility] BUN 21 6 - 25 mg/dL [facility] Creatinine 1.41(H) 0.60 - 1.10 mg/dL [facility] Glucose 102 70 - 199 mg/dL [facility] Comment: [...] Calcium 10.0 8.5 - 10.3 mg/dL [facility] Phosphorus, pl 3.1 2.3 - 4.5 mg/dL [facility] Albumin 4.0 3.5 - 5.0 g/dL [facility] Blood Venous blood specimen / Unknown 03/12/2025 3:04 PM CDT 03/12/2025 9:23 PM CDT Narrative [facility] - 03/12/2025 10:20 PM CDT Fax results to Dr moisés sharp [phone] Tal Sharp DO LAB BLOOD ORDERABLES Final Result [facility] [place] [address] [place] [address] * (ABNORMAL) eGFR (02/26/2025 12:00 PM CDT) [...] 02/26/2025 5:47 PM CDT Oralia Del Angel NP LAB BLOOD ORDERABLES Fi nal Result Performing Organization Address [facility] [place] [address] [address] [employer] [place] [place] [address] * Vitamin D 25 hydroxy (02/26/2025 12:00 PM CDT) Pathologist [facility] Vitamin D 25-OH 51 30 - 80 ng/mL Blood Venous blood specimen / Unknown 02/26/2025 12:00 PM CDT 02/26/2025 5:33 PM CDT Oralia Del Angel NP LAB BLOOD ORDERABLES Fi nal Result Performing Organization Address [facility] [place] [address] [address] [place] [address] * (ABNORMAL) CBC without differential (02/26/2025 12:00 PM CDT) WBC 10.48(H) 3.80 - 9.90 K/cumm Hgb 10.0(L) 11.9 - 15.5 g/dL [facility] Hct 33.2(L) 35.6 - 45.5 % [facility] Plt 399 150 - 400 K/cumm [facility] MPV 11.1 9.1 - 12.3 fL [facility] RBC 3.60(L) 3.90 - 5.20 M/cumm [facility] [...] ORDERABLES Fi nal Result Performing Organization Address [facility]/ZIP Co de Phone Number [facility] [address] [facility] [place] [address] * TSH (02/26/2025 12:00 PM CDT) Pathologist [facility] Thyroid Stimulating Hormone 1.34 0.30 - 4.20 mcIUnit/mL Blood Venous blood specimen / Unknown 02/26/2025 12:00 PM CDT 02/26/2025 5:33 PM CDT Oralia Del Angel NP LAB BLOOD ORDERABLES Fi nal Result [facility] [address] [facility] [place] [address] * T4, free (02/26/2025 12:00 PM CDT) Free T4 1.07 0.90 - 1.70 ng/dL Blood Venous blood specimen / Unknown 02/26/2025 12:00 PM CDT 02/26/2025 5:33 PM CDT Oralia Del Angel NP LAB BLOOD ORDERABLES Fi nal Result Performing Organization Address [facility] de Phone Number [facility] [address] [facility] [place] [address] * (ABNORMAL) Hemoglobin A1c (02/26/2025 12:00 PM CDT) [facility] Hgb A1C 5.7(H) 4.0 - 5.6 % Estimated Average Glucose 117 mg/dL [facility] Comment: The ADA recommends reporting an estimated Average Glucose (eAG) with all Hemoglobin A1c results using the equation derived from a study of 507 normal and diabetic adults. Minority populations were underrepresented and children were not included. (Diabetes Care 31:3810-1642, 2008). The eAG is not equivalent to a fasting glucose. Blood Venous blood specimen / Unknown 02/26/2025 12:00 PM CDT 02/26/2025 5:33 PM CDT Oralia Del Angel NP LAB BLOOD ORDERABLES Fi nal Result Performing Organization Address [facility] de Phone Number [facility] [address] [facility] [place] [address] * Folate (02/26/2025 12:00 PM CDT) Pathologist [facility] Folic acid >20.0 >=5.0 ng/mL Blood Venous blood specimen / Unknown 02/26/2025 12:00 PM CDT 02/26/2025 5:33 PM CDT Oralia Del Angel NP LAB BLOOD ORDERABLES Fi nal Result [facility] [place] [address] [place] [address] * Vitamin B12 (02/26/2025 12:00 PM CDT) Vitamin B12 617 230 - 1,250 pg/mL Blood Venous blood specimen / Unknown 02/26/2025 12:00 PM CDT 02/26/2025 5:33 PM CDT Oralia Del Angel NP LAB BLOOD ORDERABLES Fi nal Result Performing Organization Address [facility] Co de Phone Number [facility] [place] [address] [place] [address] * Lipid panel (02/26/2025 12:00 PM CDT) [...] last revised on 2018. Chol/HDL ratio 2 [facility] Blood Venous blood specimen / Unknown 02/26/2025 12:00 PM CDT 02/26/2025 5:33 PM CDT Oralia Del Angel NP LAB [place]LOOD [place] [address] [address] [facility] [place] [address] * (ABNORMAL) Comprehensive metabolic panel (02/26/2025 12:00 [...] BLOOD ORDERABLES Fi nal Result [facility] [place] [address] [place] [address] * Dexa Axial Skeleton Bone Density 1 or 2 Site (10/03/2022 10:44 AM CRYSTALIZER OPERATOR) Anatomical Region Laterality Modality Body N/A Other 10/04/2022 12:1 1 AM CRYSTALIZER OPERATOR Narrative 10/04/2022 12:12 AM CRYSTALIZER OPERATOR EXAM DESCRIPTION: DEXA AXIAL SKELETON BONE DENSITY 1 OR MORE SITES REASON FOR STUDY: 77 y/o year old F with given history of screening. Postmenopausal Automotive Artist/Model: Remoov SL (S/N [id number]) CLINICAL INFORMATION: Current height: 61 inches Maximum [...] Tim Garcia M.D. MF: [email or web address] Report ID: [id number] Reading Location: [place] [address] Procedure Note Tim Garcia MD - 10/04/2022 EXAM DESCRIPTION: DEXA AXIAL SKELETON BONE DENSITY 1 OR MORE SITES REASON FOR STUDY: 77 y/o year old F with given history ofscreening. Postmenopausal Automotive Artist/Model: Remoov SL (S/N [id number]) CLINICAL INFORMATION: Current height: 61 inches Maximum [...] Tim Garcia M.D. MF: [email or web address] Report ID: [id number] Reading Location: [place] [address] Louisa Bacon DO IMG DXA PROCEDURES Radha l Result from Last 3 Months or Most Recently Relevant to Health Maintenance Insurance MEDICARE [facility] Address: [facility] [address] [place] [address] [place] [address] MEDICARE [facility] MEDICARE [facility] Address: [address] [address] Advance Directives For more information, please contact: [phone] * Full Code (Latest Code Status on File) Date Activated Date Inactivated Comments 02/27/2023 4:46 PM 02/28/2023 6:35 PM * Full Code Date Activated Date Inactivated Comments 09/07/2021 8:31 AM 09/08/2021 4:39 AM * Full Code Date Activated Date Inactivated Comments 08/01/2021 9:16 PM 08/05/2021 7:06 PM Care Teams Eeg Technologist Relationship Specialty Start Date End Date Yrn Bass PA [address] [place] [address] PCP - General Internal Medicine 3/14/25 Roger Dey DO Medical Oncologist/Big Data Analytics Lead Hematology and Oncology 11/02/20 Kasi Grullon MD Consulting Physician Cardiology 09/20/21 Roger Lebron MD [address] [place] [address] Consulting Physician Pain Management 06/10/22 Puneet Rizvi MD [address] [place] [address] Consulting Physician Neurosurgery 01/09/22 Tal Sharp DO [address] [address] Consulting Physician Nephrology 11/21/24
--- OUTSIDE RECORDS SUMMARY | 2025-04-04 19:33 | XMS_ITS | Data Portability ---
Author Organization [place] [facility], Main Office Address [address] [place] [address] Care Team Providers Care Cardiac Technician Name Role Phone LA NENA BASS Primary Care Provider LA NENA BASS Referring Provider LA NENA BASS Primary Care Provider [phone] Assessment No assessment recorded. Plan of Treatment Reminders Order Date Submit Date Provider Last Modified By Organization Details Last Modified Time Details Appointments Follo w Up 15 2024 01:30P Toña Del Angel, COLIN Not available Not available Not available Lab lipid panel , serum [address] [facility] [place] [address] [place], [address], 03/03/2025 09:39:54 TSH + free T4, serum [address] [facility] [place] [address] [place], [address], 03/03/2025 09:39:54 CBC w/ auto diff 2024 025 [place] [address] [place], [address], 03/03/2025 09:39:54 CMP, serum or plasm a [address] [facility] [place] [address] [place], [address], 03/03/2025 09:39:54 vitam in D, 25-hy droxy , total , serum [address] [facility], [address], [place], [address], 03/03/2025 09:39:54 HbA1c (hemo globi n A1c), blood [address] [facility], [address], [place], [address], 03/03/2025 09:39:55 vitam in B12 + folat e, serum or blood [address] Out[facility], [address], [place], [address], 03/03/2025 09:39:55 Referral gastr kendra hensley ist refer ral - Pleas e call patie nt to sched ule an appoi ntmen t with Dr. Candido mercer. Thank you. 2024 [facility] [address] , [place] [address], [place], [address], 03/19/2025 10:31:35 dermsylvie paredesog ist refer ral - Pleas e call patie nt to sched ule an appoi ntmen t. Thank you. 2024 025 [facility], [address] [place], [address], 02/19/2025 09:33:26 Procedures None recor ded. Surgeries None recor ded. Imaging MAMMO , scree bettie, digit al, bilat eral 2024 025 [facility], [address] [facility] [address], [place], [address], 12/16/2024 12:51:04 Medication Orders losar draper 100 mg table t 2024 025 [facility] [facility], [place], [address], 02/18/2025 15:22:09 diclo fenac sodiu m 75 mg table t,scar cordova relea se [email or web address] [facility] [address] [facility], [place], [address], 02/18/2025 15:47:54 ciaran nolac tone 25 mg table t 2024 025 [facility] [address], [address] [facility], [place], [address], 02/18/2025 15:22:12 prega balin 75 mg capsu le 2024 025 [facility] [address], [address] [facility], [place], [address], 02/18/2025 15:22:12 Aller gy Relie f (ceti rizin e) 10 mg table t 2024 025 [facility] [address], [address] [facility], [place], [address], 12/29/2024 10:55:07 fluti joaquin e propi amy 50 mcg/a ctuat ion nasal spray ,susp ensio n 2024 025 [facility] [address], [address] [facility], [place], [address], 12/29/2024 10:56:12 gabap entin 800 mg table t 2024 025 [facility] [address], [address] [facility], [place], [address], 12/29/2024 10:52:50 fluti joaquin e propi amy 50 mcg/a ctuat ion nasal spray ,susp ensio n 2024 [facility] [address], [address] [facility], [place], [address], 11/07/2024 09:14:51 Aller gy Relie f (ceti rizin e) 10 mg table t 2024 025 [facility] [address], [address] [facility], [place], [address], 11/07/2024 09:14:49 predn isone 20 mg table t [address] [facility] [address] [place], [address], 11/27/2024 09:03:15 azith romyc in 250 mg table t [address] [facility] [address] [place], [address], 11/27/2024 09:02:26 prome thazi ne-DM 6.25 mg-15 mg/5 mL oral syrup [address] [facility] [address] [facility], [place], [address], 11/27/2024 09:03:25 dulox etine 30 mg capsu lede layed relea se [email or web address] [facility] [address], [address] [place], [address], 09/16/2024 16:53:53 dulox etine 60 mg capsu coyde layed relea se [email or web address], [address] [facility], [place], [address], 09/16/2024 16:53:27 Patient TargetsNo targets recorded. Patient Instructions Encounter Date Encounter Id Patient Instructions Last Modified By Organization Details Last Modified Time 08/18/2024 [id number] reviewed her bon e density , WNL hip and lumbar . I still advised 600 mg calcium twice daily . , her wbc was normal back in December at 8.5 . [email or web address] Not available 08/18/2024 10:24:41 Reason for Referral Chain Pegger Referral for History of malignant neoplasm of colon Please call patient to schedule an appointment with Dr. Candido Gill. Thank you. Referring Physician: Oralia Del Angel [facility] Medicine, Encounter Date: 02/18/2025 Critical Power Install Technician Referral for M elanocytic nevus Please call patient to schedule an appointment. Thank you. Referring Physician: Oralia Del Angel [facility] Medicine, Encounter Date: 02/18/2025 Results Created Date Observation Date Name Description Value Unit Range Abnormal Flag Note LastModifiedBy Organization Detail LastModifiedTime 12/17/1912/16/2024 MAMMO , scree bettie, digit al, bilat eral No observ ation record ed. [facility] [address] [place], [address], 12/16/2024 12:51:04 Result Notes None recorded. Problems Name Problem SNOMED Code Status Onset Date Resolution Date Notes Provider Name and Address Organization Details Recorded Time Hypertens carlene disorder 27331163 Active 2000 Not Available [facility] 3 17:51:07 History of malignant neoplasm of colon 277649393 Active 2000 S/P Colectomy and Chemo over 20 years ago. Not Available [facility] 3 17:51:07 Heart murmur 09535082 Active 2000 Not Available [facility] 3 17:51:08 Chronic kidney disease stage 1 195339774 Active 2014 sees SUE Tinoco [address] [facility], [facility] [address], [place], [address] , [facility] [employer] 4 16:45:06 Insomnia 570338868 Active 2016 Not Available [facility] 3 17:51:07 Depressiv e disorder 70814150 Active 2019 Not Available [facility] 3 17:51:07 Neuropath y 255528501 Active 2020 Bilateral thighs Not Available [facility] 3 17:51:07 Degenerat ion of intervert ebral disc 66341801 Active 2020 Severe in lumbar spine. Not Available [facility] 3 17:51:08 Nodule of lung 255092809 Active 2021 Not Available [facility] 3 17:51:08 Onychomyc osis of toenails 681071161 Active 2022 Not Available [facility] 3 17:51:07 Lymphedem a of lower extremity 928832030 Active 2022 Not Available [facility] 3 17:51:07 Bunion 770728796 Active 2022 Not Available [facility] 3 17:51:07 Bunion 706488129 Active 2022 Not Available [facility] 3 17:51:07 Allergic rhinitis 70461836 Active 2022 Not Available [facility] 3 17:51:08 Low back pain 702168371 Active 2022 Not Available [facility] 3 17:51:07 Congestiv e heart failure 77745637 Active 2022 Dr. Kasi Bass, SUE [address] [place] [address], [place] [address], [place], [address] , [facility] 4 16:44:51 Malaise and fatigue 472366020 Active 2022 Not Available [facility] 3 17:51:07 Vitamin D deficienc y 65472983 Active 2022 Not Available [facility] 3 17:51:07 Laborator y test result abnormal 820465187 Active 2022 Not Available [facility] 3 17:51:07 Anemia 841439504 Active 2022 Not Available [facility] 3 17:51:07 Pain radiating to right flank 005313684 Active 2022 Not Available [facility] 3 17:51:07 Abdominal pain 28570218 Active 2022 Not Available [facility] 3 17:51:07 Right upper quadrant pain 965876910 Active 2022 Not Available [facility] 3 17:51:07 Chronic low back pain 726268350 Active 2022 Not Available [facility] 3 17:51:07 Lumbar spondylos is 493072268 Active 2022 Not Available [facility] 3 17:51:07 Essential hypertens ion 09092078 Active 2022 Not Available [facility] 3 17:51:08 Thyroid nodule 760400894 Active 2022 Not Available [facility] 3 17:51:07 Bronchiti s 66403759 Active 2022 SUE Carrillo [address], [place], [address] , [facility] 3 10:03:21 Chronic cough 98156582 Active 2023 Seth Martinez MD [address], [address], [place], [address] , [facility] 4 16:12:02 Acute urinary tract infection 724430286 Active 2023 SUE Carrillo [address], [address], [place], [address] , [facility] 4 12:40:16 Leukocyto sis 339807823 Active 2023 Brittany Torres RN [facility], [facility] 4 12:31:08 Weakness of right lower limb Active 2023 SUE Carrillo [address], [address], [place], [address] , [facility] 4 14:40:10 Screening for osteoporo sis Active 2023 SUE Carrillo [address], [address], [place], [address] , [employer] [facility] [employer] [facility] 4 12:28:15 Screening mammograp hy Active 2024 SUE Carrillo [address], [address], [place], [address] , [employer] [facility] 5 09:36:07 Carcinoma of colon, stage III 381731501 Active [address] Carroll at [facility] Oncology: Malignant neoplasm of ascending colon (HCC) SUE Carrillo [address], [address], [place], [address] , [facility] [employer] [facility] [employer] [facility] 5 09:39:58 Degenerat ion of lumbar intervert ebral disc 74785145 Active 2024 COLIN Paige [address], [place], [address] , [employer] [facility] [employer] [facility] 5 15:01:36 Mixed hyperlipi demia 060140429 Active 2024 COLIN Paige [address], [address], [place], [address] , [employer] [facility] [employer] [facility] 5 15:05:21 Melanocyt ic nevus 876214509 Active 2024 COLIN Paige [address], [address], [place], [address] , [employer] [facility] [employer] [facility] 5 15:19:30 Impacted cerumen in left ear 17503335480 91274 Active 2024 COLIN Paige [address], [address], [place], [address] , [employer] [facility] [employer] [facility] 5 15:19:47 Problem Notes None recorded. Procedures Surgical History Date Name Laterality Status Provider Name and Address Organization Details Recorded Time 02/19/20 25 Cerumen Removal completed COLIN Paige [address] [facility], [facility] [address], [place], [address], [facility] [employer] [facility] 02/18/2025 16:38:16 02/15/20 24 Medicare Wellness CPT Code, subsequent completed Anabell Lord RN [facility] [employer] [facility] 02/15/2024 12:10:02 11/09/19 24 screening mammography completed Brittany Torres RN [facility] [employer] [facility] 11/22/2023 10:23:45 10/10/19 24 fine needle aspiration biopsy of thyroid using ultrasound guidance completed Brittany Torres RN [facility] [employer] [facility] 10/11/2023 16:12:05 11/18/19 10 colonoscopy completed Not Available [facility] 11/09/19 22:47:46 09/10/18 80 ligation of bilateral fallopian tubes completed Not Available [facility] 11/08/2022 22:47:46 total replacement of hip completed Not Available [facility] 11/08/2022 22:47:46 Imaging Results None recorded. Procedure Notes None recorded. Medical Equipment None Reported. Allergies Allergen ID Allergen Name Allergen Category Reaction Reaction Severity Criticality Documentation Date Start Date Code Code System Note Provider Name and Address Organization Details Recorded Time 44842 Product containin g angiotens in-conver ting enzyme inhibitor (product) medicatio n Not available Not available Not available 07/18/2023 67406 009 SNOMED CHUCK Ward, [facility] [employer] [facility] 3 11:34:22 Medications Name Sig Start Date Stop Date Status Note LastModified by Organization Details LastModified Time losartan 50 mg tablet TAKE 1 & 1/2 (ONE & ONE-HALF ) TABLETS BY MOUTH ONCE DAILY 01/15 completed Not Available Not Available Not Available promethaz ine-DM 6.25 mg-15 mg/5 mL oral syrup Take 5 mL every 4 hours by oral route as needed for 10 days. 11/27 completed Not Available Not Available Not Available gabapenti n 600 mg tablet Take 1 tablet 3 times a day by oral route. active Not Available Not Available No t Available atorvasta tin 20 mg tablet TAKE 1 TABLET BY MOUTH ONCE DAILY AT NIGHT active Not Available Not Available No t Available carvedilo l 12.5 mg tablet TAKE 1 TABLET BY MOUTH TWICE DAILY WITH MEALS 02/14 completed Not Available Not Available Not Available trazodone 50 mg tablet TAKE 1 2 TO 1 (ONE HALF TO ONE) TABLET BY MOUTH EVERY DAY AT BEDTIME 02/22 completed Not Available Not Available Not Available cetirizin e 10 mg tablet TAKE 1 TABLET BY MOUTH ONCE DAILY active Not Available Not Available No t Available Pacerone 200 mg tablet Take 1 tablet by mouth once daily active Not Available Not Available No t Available azithromy marisel 250 mg tablet TAKE 2 TABLETS (500 MG) BY ORAL ROUTE ONCE DAILY FOR 1 DAY THEN 1 TABLET (250 MG) BY ORAL ROUTE ONCE DAILY FOR 4 DAYS 11/27 completed Not Available Not Available Not Available indapamid e 2.5 mg tablet TAKE 1 TABLET BY MOUTH ONCE DAILY IN THE MORNING 12/29 completed Not Available Not Available Not Available diltiazem CD 180 mg capsule,e xtended release 24 hr Take 1 capsule every day by oral route. 11/14 completed Not Available Not Available Not Available prednison e 20 mg tablet Take 2 tabs PO twice daily for 2 days; 1 tab PO twice daily for 5 days; 1/2 tab PO twice daily for 2 days; 1/2 tab PO once for 1 day. TAKE 2ND DOSE EVERYDAY AT NOON-10 DAY COURSE 11/27 completed Not Available Not Available Not Available metoprolo l succinate ER 100 mg tablet,ex tended release 24 hr TAKE 1 TABLET BY MOUTH ONCE DAILY 08/09 completed Not Available Not Available Not Available gabapenti n 400 mg capsule Take 1 capsule 3 times a day by oral route. active Not Available Not Available No t Available metronida zole 500 mg tablet TAKE 1 TABLET BY MOUTH EVERY 12 HOURS FOR 7 DAYS 08/09 completed Not Available Not Available Not Available nifedipin e ER 30 mg tablet,ex tended release TAKE 1 TABLET BY MOUTH ONCE DAILY active Not Available Not Available No t Available clopidogr el 75 mg tablet TAKE 1 TABLET BY MOUTH ONCE DAILY 02/14 completed Not Available Not Available Not Available amlodipin e 5 mg tablet TAKE 1 TABLET BY MOUTH ONCE DAILY AT NIGHT 02/14 completed Not Available Not Available Not Available ciproflox acin 500 mg tablet TAKE 1 TABLET BY MOUTH EVERY 12 HOURS FOR 10 DAYS 09/05 completed Not Available Not Available Not Available tramadol 50 mg tablet Take 1 tablet every 6 hours by oral route. 01/14 completed Not Available Not Available Not Available spironola ctone 25 mg tablet TAKE 1/2 (ONE-KYLE F) TABLET BY MOUTH ONCE DAILY DIRECTED FOR 90 DAYS active Not Available Not Available No t Available Depo-Medr ol 80 mg/mL suspensio n for injection Take 1 mL by injectio n route. 11/14 completed Not Available Not Available Not Available Macrobid 100 mg capsule Take 1 capsule every 12 hours by oral route for 10 days. 02/14 completed Not Available Not Available Not Available terbinafi ne HCl 250 mg tablet Take 1 tablet every day by oral route for 90 days. 08/09 completed Not Available Not Available Not Available amitripty line 25 mg tablet TAKE 1 TABLET BY MOUTH ONCE DAILY AT NIGHT. MAY INCREASE TO 2 TABLETS AFTER ONE WEEK. 11/14 completed Not Available Not Available Not Available gabapenti n 800 mg tablet TAKE 1 TABLET BY MOUTH THREE TIMES DAILY active Not Available Not Available No t Available amlodipin e 10 mg tablet TAKE 1 TABLET (10 MG) BY MOUTH NIGHTLY. 11/27 completed edema Not Available Not Available Not Available ferrous sulfate 325 mg (65 mg iron) tablet Take 2 tablets by mouth once daily 02/14 completed Not Available Not Available Not Available gabapenti n 300 mg capsule TAKE 1 CAPSULE BY MOUTH THREE TIMES DAILY 02/22 completed Not Available Not Available Not Available diclofena c sodium 75 mg tablet,de layed release TAKE 1 TABLET BY MOUTH ONCE DAILY NEEDED FOR 90 DAYS active Not Available Not Available No t Available [address] [facility] 10 mg tablet Take 1 tablet by mouth once daily active Not Available Not Available No t Available mupirocin 2 % topical ointment APPLY OINTMENT TOPICALL Y TO EACH NOSTRIL TWICE DAILY FOR 5 DAYS PRIOR TO PROCEDUR E 11/14 completed Not Available Not Available Not Available metoprolo l succinate ER 25 mg tablet,ex tended release 24 hr TAKE 1 TABLET BY MOUTH ONCE DAILY 02/14 completed Not Available Not Available Not Available methylpre dnisolone 4 mg tablets in a dose pack TAKE BY MOUTH DIRECTED ON INSIDE OF PACKAGE 02/14 completed Not Available Not Available Not Available cefdinir 300 mg capsule TAKE 1 CAPSULE BY MOUTH EVERY 12 HOURS 02/14 completed Not Available Not Available Not Available losartan 100 mg tablet Take 1 tablet every day by oral route for 90 days. 2024 active Not Available Not Available Not Avai lable fluticaso ne propionat e 50 mcg/actua tion nasal spray,mirtha pension USE 1SPRAY(S ) IN EACH NOSTRIL twice DAILY 2024 active Not Available Not Available Not Avai lable duloxetin e 30 mg capsule,d elayed release Take 1 capsule every day by oral route for 7 days. 09/16 completed Not Available Not Available Not Available duloxetin e 60 mg capsule,d elayed release Take 1 capsule every day by oral route for 30 days. 09/16 completed caused severe burning Not Available Not Available Not Available pregabali n 75 mg capsule TAKE 1 CAPSULE BY MOUTH ONCE DAILY AT NOON active Not Available Not Available No t Available pregabali n 100 mg capsule TAKE 1 CAPSULE BY MOUTH THREE TIMES DAILY 08/01 completed Not Available Not Available Not Available pregabali n 150 mg capsule TAKE 1 CAPSULE BY MOUTH EVERY DAY IN THE MORNING AND 1 BEFORE BEDTIME active Not Available Not Available No t Available melatonin otc 02/14 completed Not Available Not Available Not Available Tylenol PRN active Not Available Not Avail able Not Available multivita min active Not Available Not Available Not Available Adult Low Dose Aspirin otc 2020 active Not Available Not Available Not Avai lable hydrochlo rothiazid e 12.5 mg tablet TAKE 1 TABLET BY MOUTH ONCE DAILY 11/27 completed Not Available Not Available Not Available Eliquis 5 mg tablet TAKE 1 TABLET BY MOUTH TWICE DAILY 02/14 completed Not Available Not Available Not Available [employer] COVID-19 Ag Self Test kit Use as Directed on the Package 09/05 completed Not Available Not Available Not Available Vitals Date Recorded Body height Body mass index (BMI) Body weight Body temperature Heart rate Oxygen saturation Oxygen saturation in Arterial blood by Pulse oximetry Systolic And Diastolic Provider Name and Address Organization Details Last Updated DateTime 5 157.48 cm 36.6 kg/m2 33222.5 5 g 97.7 [degF] 59 /min 97 % 97 % 118/56 mm[Hg] Brittany Torres RN [facility] [employer] [facility] 5 09:05:40 Date Recorded Body height Body mass index (BMI) Body weight Body temperature Respiratory rate Heart rate Oxygen saturation Oxygen saturation in Arterial blood by Pulse oximetry Systolic And Diastolic Provider Name and Address Organization Details Last Updated DateTime 5 157.48 cm 37.6 kg/m2 15544.2 3 g 97.8 [degF] 18 /min 61 /min 96 % 96 % 126/80 mm[Hg] Harika Miller [facility] [employer] [facility] 5 09:08:36 Date Recorded Body height Body mass index (BMI) Body weight Body temperature Systolic And Diastolic Provider Name and Address Organization Details Last Updated DateTime 12/29/2024 157.48 cm 36.9 kg/m2 26380.6 6 g 98.5 [degF] 128/60 mm[Hg] Catie Shelton [facility] [employer] [facility] 5 10:35:02 Date Recorded Body height Body mass index (BMI) Body weight Body temperature Heart rate Oxygen saturation Oxygen saturation in Arterial blood by Pulse oximetry Systolic And Diastolic Provider Name and Address Organization Details Last Updated DateTime 5 157.48 cm 36 kg/m2 85110.7 g 98.4 [degF] 70 /min 98 % 98 % 138/70 mm[Hg] Catie Shelton [facility] [employer] [facility] 5 14:36:54 Date Recorded Body height Body mass index (BMI) Body weight Body temperature Heart rate Oxygen saturation Oxygen saturation in Arterial blood by Pulse oximetry Systolic And Diastolic Provider Name and Address Organization Details Last Updated DateTime 4 157.48 cm 36.8 kg/m2 33071.0 7 g 98.6 [degF] 64 /min 97 % 97 % 146/50 mm[Hg] Anabell Lord RN [facility] [employer] [facility] 4 10:00:28 Social History Question Answer Notes LastModified by Organization Details LastModified Time Tobacco Smoking Status Former Smoker Not Available [employer] 11/08/2022 22:47:23 Do You Have An Advance Directive? No [id number] Information not available 11/08/2022 Are You Blind Or Do You Have Difficulty Seeing? No [id number] Information not available 11/08/2022 What Is Your Level Of Caffeine Consumption? Occasional [id number] Information not available 11/08/2022 How Much Tobacco Do You Chew? None [id number] Information not available 11/08/2022 In The 14 Days Before Symptom Onset, Have You Had Close Contact With A Laboratory-conf irmed COVID-19 While That Case Was Ill? No [id number] Information not available 11/08/2022 In The 14 Days Before Symptom Onset, Have You Had Close Contact With A Person Who Is Under Investigation For COVID-19 While That Person Was Ill? No [id number] Information not available 11/08/2022 Are You Deaf Or Do You Have Serious Difficulty Hearing? No [id number] Information not available 11/08/2022 What Type Of Diet Are You Following? REGULAR [id number] Information not available 11/08/2022 Have There Been Any Changes To Your Family Or Social Situation? No [id number] Information not available 11/08/2022 What Is The Fluoride Status Of Your Home? Unknown [id number] Information not available 11/08/2022 Do You Use Insect Repellent Routinely? No [id number] Information not available 11/08/2022 Where Do You Live? [place]House [id number].[id number] Information not available 11/08/2022 Do You Have A Medical Power Of Alarm Investigator? No [id number] Information not available 11/08/2022 What Was The Date Of Your Most Recent Tobacco Screening? 02/15/2024 Information not available 02/15/2024 What Is Your Relationship Status? MIGRATION.[id number] [id number] Information not available 11/08/2022 Do You Use Your Seat Belt Or Car Seat Routinely? Yes MIGRATION.0301 [id number] Information not available 11/08/2022 Do You Have Smoke And Carbon Monoxide Detectors In Your Home? Yes MIGRATION.0301 [id number] Information not available 11/08/2022 How Much Tobacco Do You Smoke? No Information not available 02/15/2024 Do You Use Sunscreen Routinely? No Occasionally MIGRATION.0301 [id number] Information not available 11/08/2022 Has Tobacco Cessation Counseling Been Provided? No MIGRATION.0301 [id number] Information not available 11/08/2022 How Many Years Have You Smoked Tobacco? 30 MIGRATION.0301 859534 Information not available 11/08/2022 Do You Have Difficulty Walking Or Climbing Stairs? No MIGRATION.0301 926989 Information not available 11/08/2022 Do You Have Any Dietary Restrictions? No MIGRATION.0301 649053 Information not available 11/08/2022 Sex: Unknown Functional Status Question Answer Note LastModified by [employer] Details LastModified Time Do you or have you ever used any other forms of tobacco or nicotine? No MIGRATION.868843 2899 Information not available 11/08/2022 What is your level of alcohol consumption? None MIGRATION.687902 0294 Information not available 11/08/2022 Do you have transportation difficulties? No MIGRATION.690014 2448 Information not available 11/08/2022 Are you able to walk? YESASSIST walker MIGRATION.929367 4740 Information not available 11/08/2022 Do you have difficulty doing errands alone? No MIGRATION.181559 0019 Information not available 11/08/2022 Are you able to care for yourself independently? Yes MIGRATION.625049 6999 Information not available 11/08/2022 What is your occupation? retired MIGRATION.979338 5749 Information not available 11/08/2022 Do you have difficulty dressing, bathing, grooming, or toileting? No MIGRATION.228530 4371 Information not available 11/08/2022 What is your exercise level? Occasional MIGRATION.738287 7289 Information not available 11/08/2022 Mental Status Question Answer Note LastModified by [employer] Details LastModified Time Do you feel stressed (tense, restless, nervous, or anxious, or unable to sleep at night)? [id number] MIGRATION.[id number] 26 Information not available 11/08/2022 Do you have difficulty concentrating, remembering or making decisions? No MIGRATION.[id number] 26 Information not available 11/08/2022 Family History Nothing Reported Notes:pt is adopted Medical History Condition Response ALLERGIES/HAYFEVER Y LUNG DISEASE/DISORDER Y DEPRESSION (INCLUDING POST ) Y DIABETES, TYPE Y ENT Y SLEEP DISORDER Y HEART DISEASE/HEART PROBLEMS Y HYPERTENSION Y CANCER: SPECIFY Y ANEMIA/BLOOD DISORDER Y Gynecological History Statement/Question Response Date of Last Pap Date of Last Mammogram Date of Last Colonoscopy Date of LMP Most Recent Bone Density Obstetrics History GPAL:G 3 P 0 0 0 3 Type Value Living 3 Total 3 Immunizations Vaccine Type Date Status Note Provider Nam e and Address Organization Details Recorded Time Influenza, split virus, trivalent, preservative 1 completed Not Available [employer] 07/20/2023 17:51:08 Influenza, high-dose, quadrivalent, PF 2 completed DAVIAN PaigeP [address], [address], [place], [address], [facility] [employer] [facility] 02/18/2025 15:02:13 COVID-19, mRNA, LNP-S, PF, 100 mcg/0.5mL dose or 50 mcg/0.25mL dose 1 completed COLIN Paige [address], [place], [address], [facility] [employer] [facility] 02/18/2025 15:02:13 COVID-19, mRNA, LNP-S, PF, 100 mcg/0.5mL dose or 50 mcg/0.25mL dose 1 completed COLIN Paige [address], [address], [place], [address], [facility] [employer] [facility] 02/18/2025 15:02:13 COVID-19, mRNA, LNP-S, PF, 100 mcg/0.5mL dose or 50 mcg/0.25mL dose 2 completed COLIN Paige [address], [address], [place], [address], [facility] [employer] [facility] 02/18/2025 15:02:13 COVID-19, mRNA, LNP-S, PF, 100 mcg/0.5mL dose or 50 mcg/0.25mL dose 1 completed COLIN Paige [address], [place], [address], [facility] [employer] [facility] [employer] [facility] 02/18/2025 15:02:13 COVID-19, mRNA, LNP-S, bivalent, PF, 50 mcg/0.5 mL or 25mcg/0.25 mL dose 2 completed COLIN Paige [address], [place], [address], [facility] [employer] [facility] [employer] [facility] 02/18/2025 15:02:13 Tdap 1 completed COLIN Paige [address], [place], [address], [employer] [facility] [employer] [facility] 02/18/2025 15:02:13 Pneumococcal conjugate PCV 13 1 completed COLIN Paige [address] [facility], [address], [place], [address], [employer] [facility] [employer] [facility] 02/18/2025 15:02:13 Past Encounters Encounter ID Performer Location Encounter Start Date Encounter Closed Date Diagnosis/Indication Diagnosis SNOMED-CT Code Diagnosis ICD10 Code Diagnosis Note [id number] [facility] _ATHENA_M IGRATION_ DEFAULT_1 _1 , 01/11/2021 00:00:00 01/11/2021 17:47:31 [id number] Phoenix Bojorquez MD [facility] Dorian bob [facility] [place] [address] 02/22/2021 00:00:00 02/22/2021 21:15:14 [id number] Phoenix Bojorquez MD [facility] Dor[address] [facility] [place] [address] 03/24/2021 00:00:00 03/24/2021 23:07:38 [id number] Phoenix Bojorquez MD [facility] [address] [place] [address] 05/25/2021 00:00:00 05/25/2021 20:51:07 [id number] Phoenix Bojorquez MD [facility] [place] [address] , [place] [address] 08/01/2021 00:00:00 08/01/2021 19:37:13 [id number] Phoenix Bojorquez MD [facility] [place] [facility] [address] [place] [address] 08/22/2021 00:00:00 08/22/2021 19:35:31 [id number] Phoenix Bojorquez MD [facility] [place] [address] [place] [address] [place] [address] 11/21/2021 00:00:00 11/21/2021 21:00:59 [id number] Phoenix Bojorquez MD [facility] [place] [address] [place] [address] [place] [address] 02/23/2022 00:00:00 02/23/2022 10:18:19 [id number] Phoenix Bojorquez MD [facility] [place] [address] [place] [address] y , [place] [address] 04/19/2022 00:00:00 04/19/2022 19:58:52 [id number] Phoenix Bojorquez MD [facility] [place] [address] [place] [address] [place] [address] 05/26/2022 00:00:00 05/26/2022 17:45:41 [id number] Phoenix Bojorquez MD [facility] [place] [address] [place] [address] [place] [address] 08/09/2022 00:00:00 08/09/2022 19:55:52 [id number] Jl Leiva DPM [facility] Pod[facility] [place] [id number] [place] [address] 09/18/2022 00:00:00 10/08/2022 18:26:37 [id number] Phoenix Bojorquez MD [facility] [place] [address] [place] [address] [place] [address] 10/16/2022 00:00:00 10/16/2022 20:41:13 [id number] Phoenix Bojorquez MD [facility] Rahulvi llsiobhan [address] [place] [address] [place] [address] 01/15/2023 10:51:41 01/15/2023 11:20:02 Hypertensive disorder 19881913 I10 Increase losartan to 100 mg daily. BP recheck 220/78Need s to talk with cardiologi st if BP continues to be high. Low back pain 490803260 M54.50 Heat and biofreeze. [id number] Phoenix Bojorquez MD [facility] Dorian bob [address] [place] [address] [place] [address] 01/24/2023 10:45:58 01/24/2023 11:04:44 Injection given 714825611 Z98.890 [id number] Phoenix Bojorquez MD [facility] Dorian llsiobhan [address] [place] [address] [place] [address] 03/06/2023 12:31:24 03/06/2023 12:53:28 Malaise and fatigue 620110059 R53.83 Vitamin D deficiency 347 45485 E55.9 [id number] Phoenix Bojorquez MD [facility] Dorian bob [address] [place] [address] [place] [address] 04/17/2023 10:52:39 04/17/2023 11:12:24 Pain radiating to right flank 991504685 R10.9 Use biofreeze analgesic rub and heat to area. Neuropathy 489831628 G62 .9 Parking placard form filled out. [id number] Phoenix Bojorquez MD [facility] [place] [address] [place] [address] 07/18/2023 11:18:29 07/18/2023 12:00:23 Lumbar spondylosis 030926867 M47.896 Continue pain management and PT Essential hypertension 82413532 I10 Recheck 160/70. F/u with cardiologi st. [id number] Phoenix Bojorquez MD [facility] [place] [address] [place] [address] [place] [address] 08/14/2023 09:22:31 08/14/2023 10:19:04 Chronic kidney disease stage 1 919332255 N18.1 Thyroid nodule 563609460 E04.1 Bronchitis 18106136 J40 [id number] Seth Martinez MD [facility] [place] [address] [place] [address] 09/06/2023 14:47:43 09/06/2023 15:53:23 Thyroid nodule 080222480 E04.1 [id number] Seth Martinez MD [facility] [place] [address] [place] [address] 10/30/2023 15:38:48 10/30/2023 16:36:22 Thyroid nodule 492957550 E04.1 Chronic cough 25984396 R 05.3 [id number] Phoenix Bojorquez MD [facility] [place] [facility] [place] [address] 11/15/2023 12:09:41 11/15/2023 12:57:48 Chronic kidney disease stage 1 773266000 N18.1 Acute urin gillian tract infection 334870556 N39.0 Allergic rhinitis 894341 04 J30.9 Anemia 581957928 D64.9 Chronic low back pain 27 6609752 M54.50 Congestive heart failure 04497182 I50.9 Depressive disorder 3548 9007 F32.A Diabetic p eripheral neuropathy 337877096 E11.40 Essential hypertension 63965517 I10 Insomnia 564094417 G47.0 0 Low back pain 901524506 M54.50 Lumbar spondylosis 24980 0009 M47.896 Neuropathy 137139003 G62 .9 [id number] Marco Santos MD [facility] [address] [place] [address] 02/15/2024 11:54:25 02/15/2024 12:38:18 Adult health examination 132105276 Z00.00 Screening for disorder 614682025 Z13.9 Screening for osteoporosis 593674910 Z13.820 Allergic rhinitis 211239 04 J30.9 Anemia 070853932 D64.9 Chronic ki dney disease stage 1 396948585 N18.1 Chronic low back pain 27 2520886 M54.50 Congestive heart failure 78851628 I50.9 Degenerati on of intervertebral disc 14006748 M51.9 Depressive disorder 3548 9007 F32.A Diabetic p eripheral neuropathy 516601443 E11.40 Essential hypertension 31808227 I10 Insomnia 303830880 G47.0 0 Lumbar spondylosis 90480 0009 M47.896 Vitamin D deficiency 347 44055 E55.9 [id number] Marco Santos MD [address] [address] 08/18/2024 09:38:47 08/18/2024 10:23:45 Diabetic peripheral neuropathy 969526754 E11.40 Essential hypertension 86759087 I10 Vitamin D deficiency 347 49852 E55.9 Congestive heart failure 50707387 I50.9 Allergic rhinitis 266864 04 J30.9 Anemia 866189863 D64.9 Chronic cough 05933792 R 05.3 Chronic ki dney disease stage 1 786045890 N18.1 Insomnia 853533591 G47.0 0 Lumbar spondylosis 17604 0009 M47.896 Neuropathy 613073292 G62 .9 [id number] Marco Santos MD [address] [address] 11/07/2024 08:53:26 11/07/2024 10:27:14 Allergic rhinitis 28026663 J30.9 Bronchitis 17830797 J40 Chronic ki dney disease stage 1 375146619 N18.1 Diabetic p eripheral neuropathy 031456624 E11.40 Essential hypertension 13721648 I10 [id number] Marco Santos MD [address] [address] 11/27/2024 08:53:01 11/27/2024 14:49:12 Vitamin D deficiency 15993382 E55.9 Hypertensive disorder 38 607733 I10 Lymphedema of lower extremity 298201199 I89.0 Screening mammography 24 414839 Z12.31 Allergic rhinitis 247776 04 J30.9 Anemia 615407120 D64.9 Chronic ki dney disease stage 1 855327599 N18.1 Congestive heart failure 35192867 I50.9 Degenerati on of intervertebral disc 61856885 M51.9 Depressive disorder 3548 9007 F32.A Diabetic p eripheral neuropathy 928808540 E11.40 Essential hypertension 01318738 I10 Insomnia 586296707 G47.0 0 Lumbar spondylosis 52964 0009 M47.896 Weakness o f right lower limb 2325641006 35657 M62.81 [id number] Marco Santos MD [address] [address] 12/29/2024 10:23:08 12/29/2024 11:02:37 Neuropathy 018872292 G62.9 Allergic rhinitis 659523 04 J30.9 Carcinoma of colon, stage III 684409382 C18.9 Chronic ki dney disease stage 1 041063565 N18.1 Congestive heart failure 15152003 I50.9 [id number] Marco Santos MD [address] [address] 02/18/2025 14:13:56 02/18/2025 15:43:17 Neuropathy 119131633 G62.9 Not well controlled , she states she often feels her whole body is on fireWill attempt to D/C gabapentin and take pregabalin Will consider duloxetine Congestive heart failure 17964738 I50.9 Managed by cardiology , she does have LE edema today Hypertensive disorder 38 627153 I10 Well controlled , she does see cardiology Degenerati on of lumbar intervertebral disc 57336598 M51.369 She has seen pain management and PT, would like to trial a low dose pain medication Mixed hyperlipidemia 267 785933 E78.2 Well controlled currently Vitamin D deficiency 347 61410 E55.9 Thyroid nodule 362049188 E04.1 Had surgically removed, has been noticing a hoarse voice again History of malignant neoplasm of colon 859392465 Z85.038 In remission, due for colonoscop y Melanocytic nevus 342795 001 D22.9 Located on face, arm, and back Impacted c erumen in left ear 0733138254 779205 H61.22 Irrigated in office without complicati on Health Concerns Section Related Observation LastModified by Organization Detai ls LastModified Time None Recorded Concern Status LastModified by Organization Details LastModified Time None Recorded Advance Directives Directive N: Payers Insurance Date Sequence Insurance Name Policy Number Policy [place] Covered Member ID [place] Member ID Guarantor Name 02/18/2025 1 [place] Lizy Simmons [id number] Lizy Simmons 02/18/2025 2 [employer] (MEDICARE SUPPLEMENT) Tata Simmons [id number] Lizy Simmons Notes Date Note Type Note Provider Name and Address Organization Details Recorded Time 08/18 text/ html ROS as noted in the HPI no fever , just a cough , no one else sick SUE Carrillo [address], [place], [address], [employer] 4 17:11:24 11/07 text/ html ROS as noted in the HPI sinus pressure , no fever SUE Carrillo [address], [place], [address], [employer] 22:01:56 11/27 text/ html ROS as noted in the HPI no changes SUE Carrillo [address], [place], [address], [employer] 10:07:28 12/29 text/ html ROS as noted in the HPI low back pain , left leg weakness. allergies acting up SUE Carrillo [address], [facility] [address], [place], [address], [facility] [place] 5 09:42:25 02/18 text/ html Lizy Simmons is an 79 year old female patient here today to establish care. She was previously under the care of Jose Bass ALLERGIC RHINITISHYPERLIPIDEMIANEUROPATHYHYPERTENSION STAGE 3 COLON CANCER - in remissionCKD -managed by Dr. Garcia - managed by Dr. Candido Grullon, she is taking spironolactoneLYMPHEDEMA She has concerns with multiple melanotic nevi on her face and back, would like to see a outside parts sales. She has concerns with back pain. She has a history of degenerative disc disease. She has completed physical Flu shot: 4COVID vaccines: x 5Tdap: 1RSV: 4[facility] [facility] [address] [facility]: [facility] normalDEXA normal olonoscopy: Managed by [facility], has been many years COLIN Paige [address], [facility] [address], [place], [address], [facility] [place] 5 16:40:40 OBGyn Episode No OBEpisode recorded.
[2025-04-04 19:43] LABS: Add Urine Microscopic? NO; Appearance Urine Clear (Clear); Glucose Urine UA Negative (Negative); Leukocyte Esterase Ur Negative LEU/UL (Negative); Nitrate Urine Negative (Negative); Specific Grav Ur 1.017 (1.001-1.035)
--- NOTE | 2025-04-04 21:12 | PC.NURSE ---
Report to DIPESH Navarro.
[2025-04-04] MEDS: CEFEPIME 2 GM in SODIUM CHLORIDE 0.9% IV 50 ML 100 ML IVPB (21:36)
[2025-04-04] MEDS: LACTATED RINGERS 1,000 ML 125 ML IV CONT (21:40)
[2025-04-04] MEDS: VANCOMYCIN 1,250 MG/NS 250 ML 1,250 MG/250 ML BAG 166.67 MG IVPB (22:19)
--- NOTE | 2025-04-04 22:23 | P.HP_ITS ---
H&P: HPI History of Present Illness Date/Time: 04/04/25 22:23 Chief Complaint: Nausea, vomiting, abdominal pain, diarrhea, confusion Narrative: 80-year-old female with past medical history colon cancer status post colon resection, history of gastric tear, history of valve replacement, history of atrial fibrillation status post Watchman device, chronic anemia. The patient lives at home with her . One day prior to admission the patient developed diarrhea which started brown and progressively became darker. She then developed abdominal pain which was diffuse, nausea and vomiting nonbloody. She then developed confusion. She is typically A&O x3. believes it is due to her being so dehydrated. Blood pressure in ER elevated at 185/51 improving to 149/87. WBC 14.3. She has chronic elevation last values in 2021. Hemoglobin 10.7. Baseline between 7 and 9. Possible hemoconcentration due to dehydration/hypovolemia. INR 1.1. BUN 14. Serum creatinine 1.45. Troponin within normal limits. Urinalysis largely unremarkable. Head CT without acute intracranial process. CT abdomen pelvis with contrast demonstrating small bowel obstruction likely secondary to adhesion in the right lower quadrant. NG tube placed. Post insertion x-ray with NG tube in satisfactory position in the stomach. She also received vancomycin, cefepime, morphine 2 mg IV x1, Protonix 40 mg IV x1, Zofran, 1 L normal saline bolus and placed on 125 cc of lactated Ringer's. Thereafter, the patient was A&O x4 reported no complaints. Review of Systems Review of Systems: All systems reviewed & are unremarkable except as noted in HPI and below (Subjective/HPI) [facility] Past Medical History Medical History (Updated 04/04/25 @ 22:37 by Maryellen Elizabeth MD) H/O colon cancer, stage I Heart murmur Hypertension Surgical History Surgical History History of colon resection History of heart valve replacement Family History Family History Mother Hypertension Family history of diabetes mellitus in first degree relative Family history of malignant neoplasm of bone Father Family history of lung cancer Family history of lung disease Social History Social History Smoking packs per day: 0.3 Smoking cigarettes per day: 6.0 Years smoked: 20 Smoking pack-years: 6.00 Smoking status: Former smoker Tobacco type: cigarettes Second hand tobacco smoke exposure: No Smoking end date: 09/10/80 Alcohol intake: never Substance use: never Do You Feel Safe in your Home?: Yes Lack of Transportation: No Lack of Food: Never True Current Housing: I Have Housing Concerned About Future Housing: No Difficulty Paying Gas/Electric Bills: No Difficulty Paying for Meds: No Currently Unemployed: No Education: Don't Know Difficulty w/ Childcare or Family Care: No Living arrangements: with family Gender identity (if verbalized by the patient): Female Spiritual care concerns: No Meds Home Medications and Allergies Home Medications ?Medication ?Instructions ?Recorded ?Confirmed ?Type Aspir-81 81 mg PO DAILY 11/04/20 07/19/22 History amlodipine 10 mg tablet 10 mg PO DAILY 11/04/20 07/19/22 History losartan 100 mg tablet 50 mg PO DAILY 11/04/20 07/19/22 History metoprolol succinate 25 mg 25 mg PO DAILY 11/04/20 07/19/22 History tablet,extended release 24 hr acetaminophen 500 mg tablet 1,000 mg PO Q6H PRN Pain 11/04/21 07/19/22 History apixaban 5 mg tablet 5 mg PO BID 11/04/21 07/19/22 History cholecalciferol (vitamin D3) 50 50 mcg PO DAILY 11/04/21 07/19/22 History mcg (2,000 unit) capsule ferrous sulfate 325 mg (65 mg 324 mg (0.9969 x 325 mg (65 mg 07/25/22 Rx iron) tablet iron)) PO BIDWM #60 tabs pantoprazole 40 mg tablet,delayed 40 mg PO QAM #30 tabs 07/25/22 Rx release tramadol 50 mg tablet 50 mg PO Q8HR PRN Pain Rated 4-6 08/05/22 Rx #20 tabs gabapentin PO 05/03/23 History Allergies Allergy/AdvReac Type Severity Reaction Status Date / Time amiodarone Allergy Unknown Cough Verified 04/04/25 18:06 RAYMUNDO Inhibitors Allergy Cough Verified 04/04/25 18:06 Vital Signs Vital Signs - 24 hr 04/04/25 17:49 04/04/25 18:16 04/04/25 18:46 Temperature 98.7 F Pulse Rate 78 79 72 Respiratory Rate 21 H 22 H 18 Blood Pressure 185/51 H 167/66 H 153/50 H Pulse Oximetry 97 96 91 Oxygen Delivery Room Air 04/04/25 20:09 04/04/25 20:46 04/04/25 21:00 Temperature Pulse Rate 73 75 75 Respiratory Rate 22 H 20 16 Blood Pressure 151/49 H 151/47 H 149/87 H Pulse Oximetry 95 97 95 Oxygen Delivery Exam Const: General: comfortable and no acute distress Other: A&O x3 HENMT: Mouth: Yes moist mucous membranes Eyes: Pupils: Equal, round and reactive pupils present Neck: Neck: supple Resp: Effort & Inspection: normal respiratory effort Auscultation: clear to auscultation bilaterally Cardio: Rate: regular rate Rhythm: regular rhythm Heart sounds: no gallops, Murmur heart sound present and no rubs GI: GI Palp: Yes Soft to palpation Other: Mild distension. Tenderness to palpation diffusely : General: Yes bladder normal to palpation Neuro: Motor exam (neuro): 5/5 motor strength present throughout Extrem: Other: Trace pitting edema bilateral lower extremities H&P: Results Labs Labs: Short CBC 04/04/25 Range/Units 18:08 WBC 14.3 H (4.5-10.0) K/mm3 Hgb 10.7 L (12.0-15.0) g/dL Hct 33.9 L (37.0-47.0) % Plt Count 377 H (150-375) k/mm3 BMP 04/04/25 18:08 Sodium 138 Potassium 4.0 Chloride 109 H Carbon Dioxide 18 L BUN 14 Creatinine 1.45 H Glucose 103 Calcium 9.8 Cardiac Enzymes 04/04/25 Range/Units 18:08 Troponin I < 0.012 (0.000-0.034) ng/mL Liver Function 04/04/25 Range/Units 18:08 Total Bilirubin 0.4 (0.2-1.3) mg/dL AST 36 (14-36) U/L ALT 32 (6-35) U/L Alkaline Phosphatase 113 (38-126) U/L Albumin 4.2 (3.5-5.1) g/dL Urine 04/04/25 Range/Units 19:35 Urine Color Yellow (Yellow) Urine Appearance Clear (Clear) Urine pH 5.5 (5.0-9.0) Ur Specific [place] 1.017 (1.001-1.035) Urine Protein Negative (Negative) mg/dL Urine Glucose (UA) Negative (Negative) mg/dL Assessment and Plan Assessment and plan (1) Hypertension: Code(s): I10 - Essential (primary) hypertension Status: Chronic (2) Presence of Watchman left atrial appendage closure device: Code(s): Z95.818 - Presence of other cardiac implants and grafts Status: Acute (3) History of colon resection: Code(s): Z90.49 - Acquired absence of other specified parts of digestive tract Status: Acute (4) Small bowel obstruction: Code(s): K56.609 - Unspecified intestinal obstruction, unspecified as to partial versus complete obstruction Status: Acute (5) Acute kidney injury: Code(s): N17.9 - Acute kidney failure, unspecified Status: Acute Plan 80-year-old female with past medical history colon cancer status post colon resection, history of gastric tear, history of valve replacement, history of atrial fibrillation status post Watchman device, chronic anemia. The patient lives at home with her . One day prior to admission the patient developed diarrhea which started brown and progressively became darker. She then developed abdominal pain which was diffuse, nausea and vomiting nonbloody. She then developed confusion. She is typically A&O x3. believes it is due to her being so dehydrated. Blood pressure in ER elevated at 185/51 improving to 149/87. WBC 14.3. She has chronic elevation last values in 2021. Hemoglobin 10.7. Baseline between 7 and 9. Possible hemoconcentration due to dehydration/hypovolemia. INR 1.1. BUN 14. Serum creatinine 1.45. Troponin within normal limits. Urinalysis largely unremarkable. Head CT without acute intracranial process. CT abdomen pelvis with contrast demonstrating small bowel obstruction likely secondary to adhesion in the right lower quadrant. NG tube placed. Post insertion x-ray with NG tube in satisfactory position in the stomach. She also received vancomycin, cefepime, morphine 2 mg IV x1, Protonix 40 mg IV x1, Zofran, 1 L normal saline bolus and placed on 125 cc of lactated Ringer's. Thereafter, the patient was A&O x4 reported no complaints. ----- As mentioned above, NG tube has been inserted. The patient is feeling much better. Patient is NPO. General surgery consulted from the ER. Her confusion is much better, unclear etiology however improved status post treatments in the ER. CT head without acute findings. Continue neuro checks for now. She has been given cefepime and vancomycin empirically. Will place telemetry due to history of atrial fibrillation and at this time will not be administering medications. Continue Zofran p.r.n., morphine p.r.n., Protonix 40 mg IV b.i.d.. Monitor anemia. reports she was given an iron pill but no iron panel was checked and he is concerned about the anemia. Will check iron panel and ferritin to start. Cycle renal function status post fluid resuscitation. Likely due to hypovolemia/vomiting. Patient wishes to be full code. NG tube placed on 04/04/2025. NPO diet. Lactated Ringer's at 125 cc/hour. SCDs. Patient lives at home with . Ambulatory and independent at baseline. Hospitalist [facility] Advance Care Plan I have confirmed that the patient's Advanced Care Plan is present, code status is documented, or surrogate decision maker is listed in patient medical record.: Yes Medication Reconciliation I have utilized all available resources to obtain, update and review the patients current medications (includes all prescriptions, OTC, herbals, cannabis, and nutritional supplements).: Yes
--- NOTE | 2025-04-04 22:33 | ADMGEN ---
This patient, Lizy Simmons, was admitted to Medical Room 349-01. Patient/family oriented to hospital policies and general routines including ID bracelet, bed and alarms, visiting hours, pain management, procedures, bathroom and other care routines, personal items, smoking policy, room service/diet, and visiting hours. Information on how to activate the Rapid Response Team has been discussed. Patient/Family are encouraged to report perceived risks to care and to ask questions if they do not understand what they are told or what they should do.
[2025-04-05] VITALS (10 sets, daily range): BP systolic 141–157; BP diastolic 42–47; PULSE 68–77; RESP 16–20; TEMP 36.3–37.7; O2SAT 91–94
[2025-04-05 05:44] LABS: Hematocrit 28.6 % (37.0-47.0); Hemoglobin 8.9 g/dL (12.0-15.0); Immature Granulocyte Percent A 0.4 % (0-0.5); Lymphocytes Absolute Auto 1.84 K/mm3 (0.9-3.2); Mean Corpuscular HGB Conc 31.1 g/dl (32-36); Mean Corpuscular Hemoglobin 28.4 pg (26-34); Mean Corpuscular Volume 91.4 fl (80-100); Nucleated Red Blood Cells Absolute Auto 0.000 K/mm3 (0.0-0.012); Nucleated Red Blood Cells Perc 0.0 % (0.0-0.2); Platelet Count Result 321 k/mm3 (150-375); Red Blood Count 3.13 M/mm3 (4.2-5.4); White Blood Count 11.2 K/mm3 (4.5-10.0)
[2025-04-05 06:07] LABS: Alanine Aminotransferase 24 U/L (6-35); Albumin Level 3.4 g/dL (3.5-5.1); Alkaline Phosphatase 89 U/L (38-126); Anion Gap 6 mmol/L (4-12); Aspartate Amino Transferase 31 U/L (14-36); Bilirubin,Total 0.2 mg/dL (0.2-1.3); Blood Urea Nitrogen 14 mg/dL (7-17); Calcium 8.8 mg/dL (8.4-10.2); Carbon Dioxide 19 mmol/L (22-30); Chloride 108 mmol/L (98-107); Estimated CRCL calculation 30 ml/min; Estimated Glomerular Filt Rate 37; Glucose 107 mg/dL (65-110); Iron 28 ug/dL (37-170); Magnesium 1.9 mg/dL (1.6-2.3); Potassium 4.3 mmol/L (3.4-5.0); Sodium 133 mmol/L (137-145); Total Protein 6.7 g/dL (6.3-8.2)
[2025-04-05 06:17] LABS: Percent Iron Saturation 9 % (20-50)
[2025-04-05 06:23] LABS: Procalcitonin 0.1 ng/mL
[2025-04-05 06:49] LABS: Ferritin 29.40 ng/mL (11.1-264)
[2025-04-05] MEDS: LACTATED RINGERS 1,000 ML 125 ML IV CONT ×2 (07:25→16:38)
--- NOTE | 2025-04-05 08:36 | P.PNIM_ITS ---
Progress Note: A&P Assessment and Plan (1) Small bowel obstruction: Code(s): K56.609 - Unspecified intestinal obstruction, unspecified as to partial versus complete obstruction Status: Acute Assessment and Plan: Abdomen/pelvis CT: Small bowel obstruction, likely secondary to adhesion in the right lower quadrant. History of colon resection Lactic acid WNL. Blood cultures obtained on 04/04: pending WBC elevated on admission at 14.3, given vancomycin and cefepime in the ED. WBC improved upon admission to 11.2. Will DC antibiotics as this is likely reactive leukocytosis from SBO and monitor WBC and vitals. NG tube to low intermittent suction, abdomen XR showing good placement Gentle IV fluid resuscitation given the patient's NPO status P.r.n. Anti emetics Monitor I&Os, vital signs, neuro status and patient is a fall risk Monitor serum electrolytes and CBC Surgery consulted Continue NG decompression and bowel rest Plan for bstructive series tomorrow (2) Acute kidney injury: Code(s): N17.9 - Acute kidney failure, unspecified Status: Acute Assessment and Plan: BUN/Cr 1.45/28 with GFR 35 on admission, baseline WNL. Likely related to vomiting/diarrhea causing dehydration Slight improvement on am labs with BUN/Cr 14/1.36 with GFR 37 after receiving IV fluids Avoid nephrotoxic medications Renally dose medications Monitor I/O (3) Anemia: Qualifiers: Anemia type: unspecified type Qualified Code(s): D64.9 - Anemia, unspecified Code(s): D64.9 - Anemia, unspecified Status: Acute Assessment and Plan: H/H 10.7/33.9 on admission, possibly related to dehydration secondary to vomiting and diarrhea as this is above patients baseline of 7-9. Received 1L NS bolus and was started on 125 ml/hr LR on admission likely causing dilution as well Denies hematuria, hematochezia, hematemesis, melena - H/H 8.9/28.6 on am labs - Iron panel: Iron 28, TIBC 302, % sat 9, and ferritin 29.4 Recently started on iron supplementation few days ago per - B12 and Folate WNL (4) Hypertension: Code(s): I10 - Essential (primary) hypertension Status: Chronic Assessment and Plan: Chronic, continue home medications - spironolactone 25 mg daily and losartan 50 mg daily currently on hold given NPO status - IV hydralazine PRN for SBP > 170 - blood pressures remain stable, continue to monitor (5) Atrial fibrillation: Qualifiers: Atrial fibrillation type: unspecified chronic Qualified Code(s): I48.20 - Chronic atrial fibrillation, unspecified Code(s): I48.91 - Unspecified atrial fibrillation Status: Chronic Assessment and Plan: Currently in sinus rhythm Chronically on amiodarone however currently on hold as patient is NPO for SBO Tele reviewed and no acute arrhythmias Continue to monitor, resume amiodarone when able Not on anticoagulation, history of watchman (6) Presence of Watchman left atrial appendage closure device: Code(s): Z95.818 - Presence of other cardiac implants and grafts Status: Acute (7) History of colon resection: Code(s): Z90.49 - Acquired absence of other specified parts of digestive tract Status: Acute Time Spent With Patient Time with patient: 25 - 35 minutes Subjective Date/time seen: 04/05/25 08:36 Interval history: 80-year-old female with past medical history colon cancer status post colon resection, history of gastric tear, history of valve replacement, history of atrial fibrillation status post Watchman device, chronic anemia presents to the hospital for abdominal pain with nausea/vomiting and diarrhea. Patient is pleasant lying comfortably in bed with family at bedside. Patient was previously having profuse diarrhea but since admission has not had a bowel movement or pass flatus. The NG tube remains in place and she denies any nausea/vomiting or abdominal pain. She has no other complaints denying chest pain, shortness a breath, palpitations, dizziness/lightheadedness. Patient also notes that there was no blood in her urine nor the bowel movements whenever she was having them. Review of Systems Review of Systems: All systems reviewed & are unremarkable except as noted in HPI and below Exam Narrative: AF HR 70 RR 18 SpO2 91 BP 157/47 General: female in no acute respiratory distress who is nontoxic appearing, lying semi recumbent in bed. HEENT: Normocephalic. Atraumatic. Extraocular movement intact. Sclera clear and anicteric. No facial asymmetry. NG tube in place. Neck: Neck was supple. No dominant adenopathy, thyromegaly or masses. 2+ carotid upstrokes without bruits. Chest: Lungs are clear to auscultation bilaterally. No wheezes or crackles. CV: Heart was regular rate and rhythm. S1-S2. No murmurs, gallops, or rubs. Abd: Abdomen was soft. Nontender. Nondistended. Hypoactive bowel sounds. Ext: No clubbing, cyanosis, or edema. DP pulses bilaterally. Neuro: Patient is alert. Speech is clear. Objective Data Vital Signs Vital Signs: Vital Signs - 24 hr 04/04/25 17:49 04/04/25 18:16 04/04/25 18:46 Temperature 98.7 F Pulse Rate 78 79 72 Respiratory Rate 21 H 22 H 18 Blood Pressure 185/51 H 167/66 H 153/50 H Pulse Oximetry 97 96 91 Oxygen Delivery Room Air 04/04/25 20:09 04/04/25 20:46 04/04/25 21:00 Temperature Pulse Rate 73 75 75 Respiratory Rate 22 H 20 16 Blood Pressure 151/49 H 151/47 H 149/87 H Pulse Oximetry 95 97 95 Oxygen Delivery 04/04/25 22:29 04/04/25 23:21 04/05/25 00:00 Temperature 98.0 F Pulse Rate 78 72 Respiratory Rate 16 Blood Pressure 153/46 H Pulse Oximetry 93 Oxygen Delivery Room Air 04/05/25 04:00 04/05/25 06:00 Temperature 98.1 F Pulse Rate 73 73 Respiratory Rate 16 Blood Pressure 142/46 H Pulse Oximetry 94 Oxygen Delivery Intake/Output Intake/Output: Intake & Output 04/02/25 04/03/25 04/04/25 04/05/25 23:59 23:59 23:59 23:59 Intake Total 1050 1000 Output Total 150 100 Balance 900 900 Meds/Results Medications: Active Medications Generic Name Dose Route Start Last Admin Trade Name Freq PRN Reason Stop Dose Admin Lactated Ringer's 1,000 mls @ 125 mls/hr 04/04/25 20:35 04/05/25 07:25 Lr - Lactated Ringers Iv IV CONT 125 mls/hr .Q8H FIDEL Administration Morphine Sulfate 2 mg 04/04/25 22:34 Morphine Sulfate (*Crx) 2 Mg/Ml Inj IV PUSH Q3H PRN Pain Rated 7-10 Ondansetron HCl 4 mg 04/04/25 20:32 Ondansetron Inj 4 Mg/2 Ml Vial IV PUSH Q4H PRN Nausea Pantoprazole Sodium 40 mg 04/05/25 09:00 Pantoprazole Sodium Iv 40 Mg Vial IV PUSH Q12HR FIDEL Vancomycin HCl 1 each 04/04/25 20:43 Vancomycin Aaron First Dose Sent To Er IVPB PRN PRN Vancomycin Protocol Radiology Results: ITS Impressions Head CT 04/04/25 19:29 IMPRESSION: No acute intracranial process. Abdomen/Pelvis CT 04/04/25 19:30 IMPRESSION: Small bowel obstruction, likely secondary to adhesion in the right lower quadrant. Abdomen X-Ray 04/04/25 20:48 IMPRESSION: NG tube, in good position. Small bowel obstruction. Labs Labs: Laboratory Results - last 24 hr 04/04/25 04/04/25 04/04/25 18:08 18:45 19:35 WBC 14.3 H RBC 3.77 L Hgb 10.7 L Hct 33.9 L MCV 89.9 MCH 28.4 MCHC 31.6 L RDW 20.2 H Plt Count 377 H MPV 10.0 Immature Gran % (Auto) 0.3 Neut % (Auto) 67.8 Lymph % (Auto) 17.6 L [place] % (Auto) 12.8 H Eos % (Auto) 1.3 Baso % (Auto) 0.2 Lymph # (Auto) 2.52 [place] # (Auto) 1.8 H Eos # (Auto) 0.2 Baso # (Auto) 0.0 Abs Immat Gran (auto) 0.04 H Absolute Neuts (auto) 9.7 H Absolute Nucleated RBC 0.000 Nucleated RBC % 0.0 PT 14.0 INR 1.1 APTT 31.9 Sodium 138 Potassium 4.0 Chloride 109 H Carbon Dioxide 18 L Anion Gap 11 BUN 14 Creatinine 1.45 H Estim Creat Clear Calc 28 Estimated GFR 35 L Glucose 103 Lactic Acid 0.7 Calcium 9.8 Phosphorus Magnesium 2.1 Iron TIBC % Saturation Ferritin Total Bilirubin 0.4 AST 36 ALT 32 Alkaline Phosphatase 113 Troponin I < 0.012 Total Protein 8.4 H Albumin 4.2 Lipase 33 Procalcitonin Urine Color Yellow Urine Appearance Clear Urine pH 5.5 Ur Specific [place] 1.017 Urine Protein Negative Urine Glucose (UA) Negative Urine Ketones Trace H Ur Blood (Man) Negative Urine Nitrate Negative Urine Bilirubin Negative Urine Urobilinogen 0.2 Leukocyte Esterase Rfl Negative 04/05/25 05:33 WBC 11.2 H RBC 3.13 L Hgb 8.9 L Hct 28.6 L MCV 91.4 MCH 28.4 MCHC 31.1 L RDW 19.9 H Plt Count 321 MPV 9.8 Immature Gran % (Auto) 0.4 Neut % (Auto) 66.2 Lymph % (Auto) 16.4 L [place] % (Auto) 15.7 H Eos % (Auto) 1.0 Baso % (Auto) 0.3 Lymph # (Auto) 1.84 [place] # (Auto) 1.8 H Eos # (Auto) 0.1 Baso # (Auto) 0.0 Abs Immat Gran (auto) 0.05 H Absolute Neuts (auto) 7.5 H Absolute Nucleated RBC 0.000 Nucleated RBC % 0.0 PT INR APTT Sodium 133 L Potassium 4.3 Chloride 108 H Carbon Dioxide 19 L Anion Gap 6 BUN 14 Creatinine 1.36 H Estim Creat Clear Calc 30 Estimated GFR 37 L Glucose 107 Lactic Acid Calcium 8.8 Phosphorus 3.5 Magnesium 1.9 Iron 28 L TIBC 302 % Saturation 9 L Ferritin 29.40 Total Bilirubin 0.2 AST 31 ALT 24 Alkaline Phosphatase 89 Troponin I Total Protein 6.7 Albumin 3.4 L Lipase Procalcitonin 0.1 Urine Color Urine Appearance Urine pH Ur Specific [place] Urine Protein Urine Glucose (UA) Urine Ketones Ur Blood (Man) Urine Nitrate Urine Bilirubin Urine Urobilinogen Leukocyte Esterase Rfl Quality VTE Prophylaxis VTE prophylaxis: mechanical ordered
[2025-04-05] MEDS: PANTOPRAZOLE SODIUM IV 40 MG VIAL IV PUSH ×2 (09:22→20:44)
[2025-04-05 10:03] LABS: Vitamin B12 587.0 pg/mL (239-931)
--- NOTE | 2025-04-05 14:30 | P.CONGS_ITS ---
Assessment and Plan Assessment and plan (1) Small bowel obstruction: Code(s): K56.609 - Unspecified intestinal obstruction, unspecified as to partial versus complete obstruction Status: Acute Assessment and Plan: * I reviewed the CT and discussed the findings with the patient. Her clinical picture seems more consistent with gastroenteritis, but CT is showing a potential distal small-bowel obstruction. Will continue NG decompression and bowel rest. Obstructive series will be obtained tomorrow, and can consider small-bowel follow-through if there are still concerns for obstruction. Discussed that surgical intervention would be considered if complete small bowel obstruction is identified. Hopefully this will resolve with non operative treatment. (2) Acute kidney injury: Code(s): N17.9 - Acute kidney failure, unspecified Status: Acute (3) Hypertension: Code(s): I10 - Essential (primary) hypertension Status: Chronic History of Present Illness Consult details Consult date: 04/05/25 Reason for consult: other (Small-bowel obstruction) Requesting physician: Ena Carrizales MD Narrative: This is an 80-year-old woman who I am asked to see for a small-bowel obstruction. She presented to the emergency department last night with abdominal pain with nausea and vomiting. She had been having diarrhea for about 2 days prior to presentation and also had an episode of nausea and vomiting after trying to eat dinner 2 days ago. She had never had any symptoms like this in the past. She has had an open colon resection for colon cancer in the past. In the emergency department she was found to have signs of dehydration and CT showed evidence of small-bowel obstruction. NG tube was placed and she was admitted for further treatment. She is not passing any flatus currently. She has not had any more bowel movements since the diarrhea. She denies any other ill contacts and denies any potential food that she ate that could have caused food poisoning. Review of Systems 2 Review of Systems: All systems reviewed & are unremarkable except as noted in HPI and below Constitutional: Constitutional: Denies chills and Denies fever(s) Eyes: Eyes: Denies change in vision ENT: Denies hearing loss, Denies neck pain and Denies sore throat Cardiovascular: Cardiovascular: Denies chest pain and Denies dyspnea Respiratory: Respiratory: Denies cough, Denies dyspnea and Denies wheezing Gastrointestinal: Gastrointestinal: Reports as per HPI Genitourinary: Genitourinary: Denies hematuria and Denies dysuria Musculoskeletal: Musculoskeletal: Denies arthralgias, Denies joint swelling and Denies neck pain Allergic/Immunologic: Allergic/Immunologic: Denies wheezing PMFSH Past Medical History Medical History (Updated 04/04/25 @ 22:37 by Maryellen Elizabeth MD) H/O colon cancer, stage I Heart murmur Hypertension Surgical History Surgical History History of colon resection History of heart valve replacement Family History Family History Mother Hypertension Family history of diabetes mellitus in first degree relative Family history of malignant neoplasm of bone Father Family history of lung cancer Family history of lung disease Social History Social History Smoking packs per day: 0.3 Smoking cigarettes per day: 6.0 Years smoked: 20 Smoking pack-years: 6.00 Smoking status: Former smoker Second hand tobacco smoke exposure: No Alcohol intake: never Substance use: never Do You Feel Safe in your Home?: Yes Lack of Transportation: No Lack of Food: Never True Current Housing: I Have Housing Concerned About Future Housing: No Difficulty Paying Gas/Electric Bills: No Difficulty Paying for Meds: No Currently Unemployed: No Education: Don't Know Difficulty w/ Childcare or Family Care: No Living arrangements: with family Gender identity (if verbalized by the patient): Female Spiritual care concerns: No Meds Home Medications and Allergies Home Medications ?Medication ?Instructions ?Recorded ?Confirmed ?Type losartan 100 mg tablet 100 mg PO HS 11/04/20 04/05/25 History acetaminophen 500 mg tablet 1,000 mg PO Q6H PRN Pain 11/04/21 04/05/25 History cholecalciferol (vitamin D3) 50 50 mcg PO DAILY 11/04/21 04/05/25 History mcg (2,000 unit) capsule gabapentin 900 mg PO TID neuropathy 05/03/23 04/05/25 History amiodarone 200 mg tablet 200 mg PO DAILY 04/05/25 04/05/25 History amlodipine 10 mg tablet 10 mg PO HS 04/05/25 04/05/25 History atorvastatin 20 mg tablet 20 mg PO HS 04/05/25 04/05/25 History cetirizine 10 mg tablet 10 mg PO DAILY 04/05/25 04/05/25 History ferrous sulfate 325 mg (65 mg 325 mg PO DAILY 04/05/25 04/05/25 History iron) tablet (Sky-Time) fluticasone propionate 50 1 spray intranasal Q12H PRN nasal 04/05/25 04/05/25 History mcg/actuation nasal congestion spray,suspension montelukast 10 mg tablet 10 mg PO DAILY 04/05/25 04/05/25 History multivitamin (Daily Multi-Vitamin 1 tablet PO DAILY 04/05/25 04/05/25 History tablet) nifedipine 30 mg tablet,extended 60 mg PO DAILY 04/05/25 04/05/25 History release omeprazole 20 mg capsule,delayed 20 mg PO DAILY 04/05/25 04/05/25 History release rosuvastatin 20 mg tablet 20 mg PO DAILY 04/05/25 04/05/25 History spironolactone 25 mg tablet 12.5 mg PO DAILY 04/05/25 04/05/25 History Allergies Allergy/AdvReac Type Severity Reaction Status Date / Time amiodarone Allergy Unknown Cough Verified 04/04/25 22:39 RAYMUNDO Inhibitors Allergy Cough Verified 04/04/25 22:39 Vital Signs Vital Signs - 24 hr 04/04/25 17:49 04/04/25 18:16 04/04/25 18:46 Temperature 98.7 F Pulse Rate 78 79 72 Respiratory Rate 21 H 22 H 18 Blood Pressure 185/51 H 167/66 H 153/50 H Pulse Oximetry 97 96 91 Oxygen Delivery Room Air 04/04/25 20:09 04/04/25 20:46 04/04/25 21:00 Temperature Pulse Rate 73 75 75 Respiratory Rate 22 H 20 16 Blood Pressure 151/49 H 151/47 H 149/87 H Pulse Oximetry 95 97 95 Oxygen Delivery 04/04/25 22:29 04/04/25 23:21 04/05/25 00:00 Temperature 98.0 F Pulse Rate 78 72 Respiratory Rate 16 Blood Pressure 153/46 H Pulse Oximetry 93 Oxygen Delivery Room Air 04/05/25 04:00 04/05/25 06:00 04/05/25 08:00 Temperature 98.1 F Pulse Rate 73 73 Respiratory Rate 16 Blood Pressure 142/46 H Pulse Oximetry 94 Oxygen Delivery Room Air 04/05/25 08:00 Temperature Pulse Rate 69 Respiratory Rate Blood Pressure Pulse Oximetry Oxygen Delivery Exam 2 Const: General: alert; No acute distress Orientation/consciousness: patient oriented x3 Limitations: no limitations HENMT: Head: normocephalic and atraumatic Ears: hearing grossly normal bilaterally Face/Nose/Sinus: Normal external nose present and Normal nares present Mouth: Yes Normal oral and palatal mucosa present and Yes moist mucous membranes Eyes: General: appearance normal, both eyes and all related structures C onjunctivae: conjunctivae normal Sclera: sclerae normal Pupils: Equal, round and reactive pupils present EOM: EOMs intact bilaterally Neck: Neck: normal visual inspection, full ROM, no lymphadenopathy, supple and no JVD Lymphatic: no lymphadenopathy noted Chest: Chest palpation & inspection: normal inspection of the chest Resp: Effort & Inspection: normal respiratory effort and able to speak in complete sentences Auscultation: clear to auscultation bilaterally P ercussion: percussion normal Cardio: Jugular venous distension: no JVD Rate: regular rate Rhythm: r egular rhythm Heart sounds: S1 normal heart sound present and S2 normal heart sound present Peripheral pulses: Peripheral pulses 2+ throughout GI: Inspection: normal to inspection, non-distended and obesity GI Palp: Y es Soft to palpation, Yes Tenderness to palpation present (GI) (Mild right lower quadrant and left lower quadrant), No Guarding due to palpation present (GI) and No Rebound tenderness present Auscultation: Hypoactive bowel sounds present : General: Yes no CVA tenderness Back/Spine/Pelvis: Back: no CVA tenderness Skin: General skin exam: normal color and dry skin Neuro: General: patient oriented x3, gait normal, moves all extremities, no focal motor deficits and CN's II-XI intact bilaterally Cranial nerves: Yes Equal, round and reactive pupils present Speech: normal speech Extrem: General: normal to inspection and capillary refill normal Results Labs 04/05/25 05:33 04/05/25 05:33 Labs: Abnormal lab results 04/04/25 04/04/25 04/05/25 Range/Units 18:08 19:35 05:33 WBC 14.3 H 11.2 H (4.5-10.0) K/mm3 RBC 3.77 L 3.13 L (4.2-5.4) M/mm3 Hgb 10.7 L 8.9 L (12.0-15.0) g/dL Hct 33.9 L 28.6 L (37.0-47.0) % MCHC 31.6 L 31.1 L (32-36) g/dl RDW 20.2 H 19.9 H (11.5-14.5) % Plt Count 377 H (150-375) k/mm3 Lymph % (Auto) 17.6 L 16.4 L (18.3-44.2) % [place] % (Auto) 12.8 H 15.7 H (2.6-8.5) % [place] # (Auto) 1.8 H 1.8 H (0.1-0.6) K/mm3 Abs Immat Gran (auto) 0.04 H 0.05 H (0.00-0.031) K/mm3 Absolute Neuts (auto) 9.7 H 7.5 H (1.3-6.7) K/mm3 Sodium 133 L (137-145) mmol/L Chloride 109 H 108 H (98-107) mmol/L Carbon Dioxide 18 L 19 L (22-30) mmol/L Creatinine 1.45 H 1.36 H (0.7-1.0) mg/dL Estimated GFR 35 L 37 L (59 - ) Iron 28 L (37-170) ug/dL % Saturation 9 L (20-50) % Total Protein 8.4 H (6.3-8.2) g/dL Albumin 3.4 L (3.5-5.1) g/dL Folate > 20.0 H (2.76->20) ng/mL Urine Ketones Trace H (Negative) mg/dL Diabetes panel 04/04/25 04/05/25 Range/Units 18:08 05:33 Sodium 138 133 L (137-145) mmol/L Potassium 4.0 4.3 (3.4-5.0) mmol/L Chloride 109 H 108 H (98-107) mmol/L Carbon Dioxide 18 L 19 L (22-30) mmol/L BUN 14 14 (7-17) mg/dL Creatinine 1.45 H 1.36 H (0.7-1.0) mg/dL Glucose 103 107 (65-110) mg/dL Calcium 9.8 8.8 (8.4-10.2) mg/dL AST 36 31 (14-36) U/L ALT 32 24 (6-35) U/L Alkaline Phosphatase 113 89 (38-126) U/L Total Protein 8.4 H 6.7 (6.3-8.2) g/dL Albumin 4.2 3.4 L (3.5-5.1) g/dL Calcium panel 04/04/25 04/05/25 Range/Units 18:08 05:33 Calcium 9.8 8.8 (8.4-10.2) mg/dL Phosphorus 3.5 (2.5-4.5) mg/dL Albumin 4.2 3.4 L (3.5-5.1) g/dL Pituitary panel 04/04/25 04/05/25 Range/Units 18:08 05:33 Sodium 138 133 L (137-145) mmol/L Potassium 4.0 4.3 (3.4-5.0) mmol/L Chloride 109 H 108 H (98-107) mmol/L Carbon Dioxide 18 L 19 L (22-30) mmol/L BUN 14 14 (7-17) mg/dL Creatinine 1.45 H 1.36 H (0.7-1.0) mg/dL Glucose 103 107 (65-110) mg/dL Calcium 9.8 8.8 (8.4-10.2) mg/dL Adrenal panel 04/04/25 04/05/25 Range/Units 18:08 05:33 Sodium 138 133 L (137-145) mmol/L Potassium 4.0 4.3 (3.4-5.0) mmol/L Chloride 109 H 108 H (98-107) mmol/L Carbon Dioxide 18 L 19 L (22-30) mmol/L BUN 14 14 (7-17) mg/dL Creatinine 1.45 H 1.36 H (0.7-1.0) mg/dL Glucose 103 107 (65-110) mg/dL Calcium 9.8 8.8 (8.4-10.2) mg/dL Total Bilirubin 0.4 0.2 (0.2-1.3) mg/dL AST 36 31 (14-36) U/L ALT 32 24 (6-35) U/L Alkaline Phosphatase 113 89 (38-126) U/L Total Protein 8.4 H 6.7 (6.3-8.2) g/dL Albumin 4.2 3.4 L (3.5-5.1) g/dL All other labs normal. Imaging Additional studies: ITS Impressions Head CT 04/04/25 19:29 IMPRESSION: No acute intracranial process. Abdomen/Pelvis CT 04/04/25 19:30 IMPRESSION: Small bowel obstruction, likely secondary to adhesion in the right lower quadrant. Abdomen X-Ray 04/04/25 20:48 IMPRESSION: NG tube, in good position. Small bowel obstruction.
[2025-04-06] VITALS (10 sets, daily range): BP systolic 137–175; BP diastolic 50–78; PULSE 68–80; RESP 18; TEMP 36.5–37.2; O2SAT 96–100
[2025-04-06] MEDS: LACTATED RINGERS 1,000 ML 125 ML IV CONT ×3 (02:03→22:37)
[2025-04-06 06:17] LABS: Estimated CRCL calculation 34 ml/min; Estimated Glomerular Filt Rate 43
--- NOTE | 2025-04-06 08:53 | PM.IMPN ---
Progress Note: A&P Assessment and Plan (1) Small bowel obstruction: Code(s): K56.609 - Unspecified intestinal obstruction, unspecified as to partial versus complete obstruction Status: Acute Assessment and Plan: Abdomen/pelvis CT: Small bowel obstruction, likely secondary to adhesion in the right lower quadrant. History of colon resection Lactic acid WNL. Blood cultures obtained on 04/04: NGTD WBC elevated on admission at 14.3, given vancomycin and cefepime in the ED. WBC improved upon admission to 11.2. Will DC antibiotics as this is likely reactive leukocytosis from SBO and monitor WBC and vitals. NG tube to low intermittent suction, abdomen XR showing good placement Gentle IV fluid resuscitation given the patient's NPO status P.r.n. Anti emetics Monitor I&Os, vital signs, neuro status and patient is a fall risk Monitor serum electrolytes and CBC Surgery consulted Continue NG decompression and bowel rest Plan for obstructive series, read pending Large BM overnight, however denies any today and no longer passing flatus. Plan for obstructive series today to reassess SBO. (2) Acute kidney injury: Code(s): N17.9 - Acute kidney failure, unspecified Status: Acute Assessment and Plan: BUN/Cr 1.45/28 with GFR 35 on admission, baseline WNL. Likely related to vomiting/diarrhea causing dehydration Continue LR 125 ml/hr for cocurrent SBO as patient is NPO Avoid nephrotoxic medications Renally dose medications Monitor I/O Improvement of Cr on am labs at 1.19. Continue to monitor. (3) Anemia: Qualifiers: Anemia type: unspecified type Qualified Code(s): D64.9 - Anemia, unspecified Code(s): D64.9 - Anemia, unspecified Status: Acute Assessment and Plan: H/H 10.7/33.9 on admission, possibly related to dehydration secondary to vomiting and diarrhea as this is above patients baseline of 7-9. Received 1L NS bolus and was started on 125 ml/hr LR on admission likely causing dilution as well Denies hematuria, hematochezia, hematemesis, melena - H/H 9.2./29.4 on am labs - Iron panel: Iron 28, TIBC 302, % sat 9, and ferritin 29.4 Recently started on iron supplementation few days ago per - B12 and Folate WNL (4) Hypertension: Code(s): I10 - Essential (primary) hypertension Status: Chronic Assessment and Plan: Chronic, continue home medications - spironolactone 25 mg daily and losartan 50 mg daily currently on hold given NPO status - IV hydralazine PRN for SBP > 170 - blood pressures remain stable, continue to monitor (5) Atrial fibrillation: Qualifiers: Atrial fibrillation type: unspecified chronic Qualified Code(s): I48.20 - Chronic atrial fibrillation, unspecified Code(s): I48.91 - Unspecified atrial fibrillation Status: Chronic Assessment and Plan: Currently in sinus rhythm Chronically on amiodarone however currently on hold as patient is NPO for SBO Tele reviewed and no acute arrhythmias Continue to monitor, resume amiodarone when able Not on anticoagulation, history of watchman (6) Presence of Watchman left atrial appendage closure device: Code(s): Z95.818 - Presence of other cardiac implants and grafts Status: Acute (7) History of colon resection: Code(s): Z90.49 - Acquired absence of other specified parts of digestive tract Status: Acute Time Spent With Patient Time with patient: 25 - 35 minutes Subjective Date/time seen: 04/06/25 08:53 Interval history: 80-year-old female with past medical history colon cancer status post colon resection, history of gastric tear, history of valve replacement, history of atrial fibrillation status post Watchman device, chronic anemia presents to the hospital for abdominal pain with nausea/vomiting and diarrhea. Patient is pleasant lying comfortably in bed. She states that she had a large bowel movement overnight however she is now no longer having bowel movements or passing flatness today. She denies any nausea or abdominal pain at this time. She has no other complaints denying chest pain, palpitations, shortness of breath. Review of Systems Review of Systems: All systems reviewed & are unremarkable except as noted in HPI and below Exam Narrative: AF HR 80 RR 18 SpO2 100 BP 137/78 General: female in no acute respiratory distress who is nontoxic appearing, lying semi recumbent in bed. HEENT: Normocephalic. Atraumatic. Extraocular movement intact. Sclera clear and anicteric. No facial asymmetry. NG tube in place. Chest: Lungs are clear to auscultation bilaterally. No wheezes or crackles. CV: Heart was regular rate and rhythm. Abd: Abdomen was soft. Nontender. Nondistended. Hypoactive bowel sounds. Ext: No clubbing, cyanosis, or edema. DP pulses bilaterally. Neuro: Patient is alert. Speech is clear. Objective Data Vital Signs Vital Signs: Vital Signs - 24 hr 04/05/25 12:00 04/05/25 14:00 04/05/25 16:00 Temperature 97.4 F L Pulse Rate 71 70 68 Respiratory Rate 18 Blood Pressure 157/47 H Pulse Oximetry 91 Oxygen Delivery Fraction of Inspired Oxygen 04/05/25 20:00 04/05/25 20:00 04/05/25 22:23 Temperature Pulse Rate 73 73 Respiratory Rate 20 Blood Pressure Pulse Oximetry 91 Oxygen Delivery Room Air Room Air Fraction of Inspired Oxygen 21 04/05/25 22:28 04/06/25 00:00 04/06/25 04:00 Temperature 99.8 F H Pulse Rate 77 68 76 Respiratory Rate 16 Blood Pressure 141/42 H Pulse Oximetry 93 Oxygen Delivery Fraction of Inspired Oxygen 04/06/25 06:00 Temperature 97.7 F Pulse Rate 80 Respiratory Rate 18 Blood Pressure 137/78 Pulse Oximetry 100 Oxygen Delivery Fraction of Inspired Oxygen Intake/Output Intake/Output: Intake & Output 04/03/25 04/04/25 04/05/25 04/06/25 23:59 23:59 23:59 23:59 Intake Total 1050 2000 1000 Output Total 150 100 Balance 900 1900 1000 Meds/Results Medications: Active Medications Generic Name Dose Route Start Last Admin Trade Name Freq PRN Reason Stop Dose Admin Hydralazine HCl 10 mg 04/05/25 08:51 Hydralazine Hcl 20 Mg/Ml Vial IV PUSH Q8H PRN Blood Pressure - High Lactated Ringer's 1,000 mls @ 125 mls/hr 04/04/25 20:35 04/06/25 02:03 Lr - Lactated Ringers Iv IV CONT 125 mls/hr .Q8H FIDEL Administration Morphine Sulfate 2 mg 04/04/25 22:34 Morphine Sulfate (*Crx) 2 Mg/Ml Inj IV PUSH Q3H PRN Pain Rated 7-10 Ondansetron HCl 4 mg 04/04/25 20:32 Ondansetron Inj 4 Mg/2 Ml Vial IV PUSH Q4H PRN Nausea Pantoprazole Sodium 40 mg 04/05/25 09:00 04/05/25 20:44 Pantoprazole Sodium Iv 40 Mg Vial IV PUSH 40 mg Q12HR FIDEL Administration Radiology Results: ITS Impressions Head CT 04/04/25 19:29 IMPRESSION: No acute intracranial process. Abdomen/Pelvis CT 04/04/25 19:30 IMPRESSION: Small bowel obstruction, likely secondary to adhesion in the right lower quadrant. Abdomen X-Ray 04/06/25 07:20 Impression: 1: Small bowel obstruction. Labs Labs: Laboratory Results - last 24 hr 04/05/25 04/06/25 05:33 05:42 Creatinine 1.19 H Estim Creat Clear Calc 34 Estimated GFR 43 L Vitamin B12 587.0 Folate > 20.0 H Quality VTE Prophylaxis VTE prophylaxis: mechanical ordered
[2025-04-06 09:22] LABS: Hematocrit 29.4 % (37.0-47.0); Hemoglobin 9.2 g/dL (12.0-15.0); Mean Corpuscular HGB Conc 31.3 g/dl (32-36); Mean Corpuscular Hemoglobin 28.5 pg (26-34); Mean Corpuscular Volume 91.0 fl (80-100); Platelet Count Result 331 k/mm3 (150-375); Red Blood Count 3.23 M/mm3 (4.2-5.4); White Blood Count 11.1 K/mm3 (4.5-10.0)
[2025-04-06] MEDS: PANTOPRAZOLE SODIUM IV 40 MG VIAL IV PUSH ×2 (09:49→20:26)
[2025-04-06 10:47] LABS: Alanine Aminotransferase 23 U/L (6-35); Albumin Level 3.5 g/dL (3.5-5.1); Alkaline Phosphatase 89 U/L (38-126); Anion Gap 11 mmol/L (4-12); Aspartate Amino Transferase 30 U/L (14-36); Bilirubin,Total 0.2 mg/dL (0.2-1.3); Blood Urea Nitrogen 9 mg/dL (7-17); Calcium 8.9 mg/dL (8.4-10.2); Carbon Dioxide 16 mmol/L (22-30); Chloride 109 mmol/L (98-107); Glucose 95 mg/dL (65-110); Potassium 4.0 mmol/L (3.4-5.0); Sodium 136 mmol/L (137-145); Total Protein 7.0 g/dL (6.3-8.2)
--- NOTE | 2025-04-06 11:28 | P.PNGS_ITS ---
Progress Note: A&P Assessment and Plan (1) Small bowel obstruction: Code(s): K56.609 - Unspecified intestinal obstruction, unspecified as to partial versus complete obstruction Status: Acute Assessment and Plan: * Obstructive series still suggest small bowel obstruction. Will order water- soluble small-bowel follow-through today * Continue NG tube decompression, bowel rest, and IV fluids (2) Acute kidney injury: Code(s): N17.9 - Acute kidney failure, unspecified Status: Acute Assessment and Plan: * Improving Plan I have discussed the patient's case and plan of care with Dr. Brumfield. Subjective Subjective Date/Time Seen: 04/06/25 11:28 Interval history: Patient had multiple bowel movements since yesterday. Reportedly a large BM overnight. She denies any abdominal pain or nausea. Minimal NG output. Exam Const: General: comfortable and no acute distress GI: Inspection: other (Mildly distended) GI Palp: Yes Soft to palpation, Yes Tenderness to palpation present (GI) (Epigastric area and left upper quadrant), No Guarding due to palpation present (GI) and No Rebound tenderness present Auscultation: Hypoactive bowel sounds present Objective Data Vital Signs Vital Signs: Vital Signs - 24 hr 04/05/25 12:00 04/05/25 14:00 04/05/25 16:00 Temperature 97.4 F L Pulse Rate 71 70 68 Respiratory Rate 18 Blood Pressure 157/47 H Pulse Oximetry 91 Oxygen Delivery Fraction of Inspired Oxygen 04/05/25 20:00 04/05/25 20:00 04/05/25 22:23 Temperature Pulse Rate 73 73 Respiratory Rate 20 Blood Pressure Pulse Oximetry 91 Oxygen Delivery Room Air Room Air Fraction of Inspired Oxygen 21 04/05/25 22:28 04/06/25 00:00 04/06/25 04:00 Temperature 99.8 F H Pulse Rate 77 68 76 Respiratory Rate 16 Blood Pressure 141/42 H Pulse Oximetry 93 Oxygen Delivery Fraction of Inspired Oxygen 04/06/25 06:00 04/06/25 07:20 04/06/25 08:00 Temperature 97.7 F Pulse Rate 80 Respiratory Rate 18 Blood Pressure 137/78 Pulse Oximetry 100 100 Oxygen Delivery Room Air Room Air Fraction of Inspired Oxygen 21 Intake/Output Intake/Output: Intake & Output 04/03/25 04/04/25 04/05/25 04/06/25 23:59 23:59 23:59 23:59 Intake Total 1050 2000 1900 Output Total 150 100 Balance 900 1900 1900 Meds/Results Medications: Active Medications Generic Name Dose Route Start Last Admin Trade Name Freq PRN Reason Stop Dose Admin Hydralazine HCl 10 mg 04/05/25 08:51 Hydralazine Hcl 20 Mg/Ml Vial IV PUSH Q8H PRN Blood Pressure - High Lactated Ringer's 1,000 mls @ 125 mls/hr 04/04/25 20:35 04/06/25 09:48 Lr - Lactated Ringers Iv IV CONT 125 mls/hr .Q8H FIDEL Administration Morphine Sulfate 2 mg 04/04/25 22:34 Morphine Sulfate (*Crx) 2 Mg/Ml Inj IV PUSH Q3H PRN Pain Rated 7-10 Ondansetron HCl 4 mg 04/04/25 20:32 Ondansetron Inj 4 Mg/2 Ml Vial IV PUSH Q4H PRN Nausea Pantoprazole Sodium 40 mg 04/05/25 09:00 04/06/25 09:49 Pantoprazole Sodium Iv 40 Mg Vial IV PUSH 40 mg Q12HR FIDEL Administration Radiology Results: ITS Impressions Head CT 04/04/25 19:29 IMPRESSION: No acute intracranial process. Abdomen/Pelvis CT 04/04/25 19:30 IMPRESSION: Small bowel obstruction, likely secondary to adhesion in the right lower quadrant. Abdomen X-Ray 04/06/25 07:20 Impression: 1: Small bowel obstruction. Labs Labs: Laboratory Results - last 24 hr 04/06/25 05:42 WBC 11.1 H RBC 3.23 L Hgb 9.2 L Hct 29.4 L MCV 91.0 MCH 28.5 MCHC 31.3 L RDW 19.5 H Plt Count 331 MPV 10.6 H Sodium 136 L Potassium 4.0 Chloride 109 H Carbon Dioxide 16 L Anion Gap 11 BUN 9 D Creatinine 1.19 H Estim Creat Clear Calc 34 Estimated GFR 43 L Glucose 95 Calcium 8.9 Total Bilirubin 0.2 AST 30 ALT 23 Alkaline Phosphatase 89 Total Protein 7.0 Albumin 3.5
--- NOTE | 2025-04-06 11:35 | PC.NURSE ---
Patient off of unit to XRAY
--- NOTE | 2025-04-06 13:56 | PC.NURSE ---
NG tube remaining clamped for small bowel follow through
--- NOTE | 2025-04-06 15:43 | PC.NURSE ---
Pt accidentally pulled out IV and NG tube. RN called [facility] and updated her. RN called Rachel Richards with [facility] and udpated her.
--- NOTE | 2025-04-06 16:54 | PC.NURSE ---
RN updated surgery [employer]INEER Rachel in regards to patient pulling out IV and NG tube. Rachel FUEL CELL ENGINEER stated to leave NG tube out and that she would watch for results of small bowel follow through series and order a clear liquid diet.
[2025-04-07] VITALS (10 sets, daily range): BP systolic 146–181; BP diastolic 50–55; PULSE 58–82; RESP 16–18; TEMP 36.6–37.3; O2SAT 97–100
[2025-04-07] MEDS: LACTATED RINGERS 1,000 ML 125 ML IV CONT (06:11)
[2025-04-07 06:15] LABS: Hematocrit 28.2 % (37.0-47.0); Hemoglobin 9.1 g/dL (12.0-15.0); Mean Corpuscular HGB Conc 32.3 g/dl (32-36); Mean Corpuscular Hemoglobin 28.8 pg (26-34); Mean Corpuscular Volume 89.2 fl (80-100); Platelet Count Result 356 k/mm3 (150-375); Red Blood Count 3.16 M/mm3 (4.2-5.4); White Blood Count 13.4 K/mm3 (4.5-10.0)
[2025-04-07 06:35] LABS: Alanine Aminotransferase 24 U/L (6-35); Albumin Level 3.6 g/dL (3.5-5.1); Alkaline Phosphatase 97 U/L (38-126); Anion Gap 7 mmol/L (4-12); Aspartate Amino Transferase 34 U/L (14-36); Bilirubin,Total 0.3 mg/dL (0.2-1.3); Blood Urea Nitrogen 9 mg/dL (7-17); Calcium 9.5 mg/dL (8.4-10.2); Carbon Dioxide 20 mmol/L (22-30); Chloride 106 mmol/L (98-107); Estimated CRCL calculation 41 ml/min; Estimated Glomerular Filt Rate 53; Glucose 108 mg/dL (65-110); Potassium 3.6 mmol/L (3.4-5.0); Sodium 133 mmol/L (137-145); Total Protein 7.1 g/dL (6.3-8.2)
--- NOTE | 2025-04-07 07:01 | PM.IMPN ---
Progress Note: A&P Assessment and Plan (1) Small bowel obstruction: Code(s): K56.609 - Unspecified intestinal obstruction, unspecified as to partial versus complete obstruction Status: Acute Assessment and Plan: Abdomen/pelvis CT: Small bowel obstruction, likely secondary to adhesion in the right lower quadrant. History of colon resection Lactic acid WNL. Blood cultures obtained on 04/04: NGTD NG tube discontinued Diet: Clear liquid diet, advance per surgery P.r.n. Anti emetics Monitor I&Os, vital signs, neuro status and patient is a fall risk Monitor serum electrolytes and CBC Surgery consulted Continue NG decompression and bowel rest Obstructive series: Delayed small bowel transit time to the right abdominal ileocolic anastomosis with persistent mild dilation of multiple loops of small bowel which be consistent with persistent ileus versus partial small bowel obstruction. Review of prior CT demonstrates no discrete transition point with intermittent gradual decrease in caliber of the distal small bowel where there is diffuse wall thickening which is more suggestive of an enteritis and associated ileus. (2) Acute kidney injury: Code(s): N17.9 - Acute kidney failure, unspecified Status: Acute Assessment and Plan: BUN/Cr 1.45/28 with GFR 35 on admission, baseline WNL. Likely related to vomiting/diarrhea causing dehydration Continue LR 125 ml/hr for cocurrent SBO as patient is NPO Avoid nephrotoxic medications Renally dose medications Monitor I/O Resolved. BUN/Cr returned to WNL. (3) Anemia: Qualifiers: Anemia type: unspecified type Qualified Code(s): D64.9 - Anemia, unspecified Code(s): D64.9 - Anemia, unspecified Status: Acute Assessment and Plan: H/H 10.7/33.9 on admission, possibly related to dehydration secondary to vomiting and diarrhea as this is above patients baseline of 7-9. Received 1L NS bolus and was started on 125 ml/hr LR on admission likely causing dilution as well Denies hematuria, hematochezia, hematemesis, melena - H/H 9.1/28.2 on am labs - Iron panel: Iron 28, TIBC 302, % sat 9, and ferritin 29.4 Recently started on iron supplementation few days ago per - B12 and Folate WNL (4) Hypertension: Code(s): I10 - Essential (primary) hypertension Status: Chronic Assessment and Plan: Chronic, continue home medications - spironolactone 25 mg daily and losartan 50 mg daily resumed - IV hydralazine PRN for SBP > 170 - blood pressures remain stable, continue to monitor (5) Atrial fibrillation: Qualifiers: Atrial fibrillation type: unspecified chronic Qualified Code(s): I48.20 - Chronic atrial fibrillation, unspecified Code(s): I48.91 - Unspecified atrial fibrillation Status: Chronic Assessment and Plan: Currently in sinus rhythm Amiodarone resumed Tele reviewed and no acute arrhythmias Continue to monitor, resume amiodarone when able Not on anticoagulation, history of watchman (6) Presence of Watchman left atrial appendage closure device: Code(s): Z95.818 - Presence of other cardiac implants and grafts Status: Acute (7) History of colon resection: Code(s): Z90.49 - Acquired absence of other specified parts of digestive tract Status: Acute Time Spent With Patient Time with patient: 25 - 35 minutes Subjective Date/time seen: 04/07/25 07:01 Interval history: 80-year-old female with past medical history colon cancer status post colon resection, history of gastric tear, history of valve replacement, history of atrial fibrillation status post Watchman device, chronic anemia presents to the hospital for abdominal pain with nausea/vomiting and diarrhea. Patient is pleasant sitting up comfortably in her chair. She states she is feeling much better today and is tolerating her clear liquid diet denying any nausea vomiting or worsening abdominal pain. She continues have bowel movements and passed flatus. She has no other complaints denying chest pain, palpitations, and and shortness of breath. Review of Systems Review of Systems: All systems reviewed & are unremarkable except as noted in HPI and below Exam Narrative: AF HR 64 RR 18 SPO2 99 BP 146/53 General: female in no acute respiratory distress who is nontoxic appearing, sitting up in chair HEENT: Normocephalic. Atraumatic. Extraocular movement intact. Sclera clear and anicteric. No facial asymmetry. NG tube in place. Chest: Lungs are clear to auscultation bilaterally. No wheezes or crackles. CV: Heart was regular rate and rhythm. Abd: Abdomen was soft. Nontender. Nondistended. Normoactive bowel sounds. Ext: No clubbing, cyanosis, or edema. DP pulses bilaterally. Neuro: Patient is alert. Speech is clear. Objective Data Vital Signs Vital Signs: Vital Signs - 24 hr 04/06/25 07:20 04/06/25 08:00 04/06/25 08:00 Temperature Pulse Rate 68 Respiratory Rate Blood Pressure Pulse Oximetry 100 Oxygen Delivery Room Air Room Air Fraction of Inspired Oxygen 21 04/06/25 12:00 04/06/25 14:00 04/06/25 16:00 Temperature 99.0 F Pulse Rate 76 74 74 Respiratory Rate 18 Blood Pressure 172/50 H Pulse Oximetry 97 Oxygen Delivery Fraction of Inspired Oxygen 04/06/25 20:00 04/06/25 20:00 04/06/25 22:00 Temperature 98.0 F Pulse Rate 78 74 Respiratory Rate 18 Blood Pressure 175/52 H Pulse Oximetry 96 Oxygen Delivery Room Air Fraction of Inspired Oxygen 04/07/25 00:00 04/07/25 00:37 04/07/25 04:00 Temperature 97.9 F Pulse Rate 75 81 76 Respiratory Rate 18 Blood Pressure 167/52 H Pulse Oximetry 100 Oxygen Delivery Fraction of Inspired Oxygen Intake/Output Intake/Output: Intake & Output 04/04/25 04/05/25 04/06/25 04/07/25 23:59 23:59 23:59 23:59 Intake Total 1050 2000 3400 945.8 Output Total 150 100 Balance 900 1900 3400 945.8 Meds/Results Medications: Active Medications Generic Name Dose Route Start Last Admin Trade Name Freq PRN Reason Stop Dose Admin Hydralazine HCl 10 mg 04/05/25 08:51 04/06/25 22:36 Hydralazine Hcl 20 Mg/Ml Vial IV PUSH 10 mg Q8H PRN Administration Blood Pressure - High Lactated Ringer's 1,000 mls @ 125 mls/hr 04/04/25 20:35 04/07/25 06:11 Lr - Lactated Ringers Iv IV CONT 125 mls/hr .Q8H FIDEL Administration Morphine Sulfate 2 mg 04/04/25 22:34 Morphine Sulfate (*Crx) 2 Mg/Ml Inj IV PUSH Q3H PRN Pain Rated 7-10 Ondansetron HCl 4 mg 04/04/25 20:32 Ondansetron Inj 4 Mg/2 Ml Vial IV PUSH Q4H PRN Nausea Pantoprazole Sodium 40 mg 04/05/25 09:00 04/06/25 20:26 Pantoprazole Sodium Iv 40 Mg Vial IV PUSH 40 mg Q12HR FIDEL Administration Radiology Results: ITS Impressions Head CT 04/04/25 19:29 IMPRESSION: No acute intracranial process. Abdomen/Pelvis CT 04/04/25 19:30 IMPRESSION: Small bowel obstruction, likely secondary to adhesion in the right lower quadrant. Abdomen X-Ray 04/06/25 07:20 Impression: 1: Small bowel obstruction. Small Bowel X-Ray 04/06/25 19:21 IMPRESSION: 1. Delayed small bowel transit time to the right abdominal ileocolic anastomosis with persistent mild dilation of multiple loops of small bowel which be consistent with persistent ileus versus partial small bowel obstruction. Review of prior CT demonstrates no discrete transition point with intermittent gradual decrease in caliber of the distal small bowel where there is diffuse wall thickening which is more suggestive of an enteritis and associated ileus. Labs Labs: Laboratory Results - last 24 hr 04/06/25 04/07/25 05:42 05:22 WBC 11.1 H 13.4 H RBC 3.23 L 3.16 L Hgb 9.2 L 9.1 L Hct 29.4 L 28.2 L MCV 91.0 89.2 MCH 28.5 28.8 MCHC 31.3 L 32.3 RDW 19.5 H 19.1 H Plt Count 331 356 MPV 10.6 H 10.3 Sodium 136 L 133 L Potassium 4.0 3.6 Chloride 109 H 106 Carbon Dioxide 16 L 20 L Anion Gap 11 7 BUN 9 D 9 Creatinine 1.19 H 1.00 Estim Creat Clear Calc 34 41 Estimated GFR 43 L 53 L Glucose 95 108 Calcium 8.9 9.5 Total Bilirubin 0.2 0.3 AST 30 34 ALT 23 24 Alkaline Phosphatase 89 97 Total Protein 7.0 7.1 Albumin 3.5 3.6 Quality VTE Prophylaxis VTE prophylaxis: mechanical ordered
[2025-04-07] MEDS: PANTOPRAZOLE SODIUM IV 40 MG VIAL IV PUSH ×2 (10:00→21:11)
--- NOTE | 2025-04-07 11:11 | P.PNGS_ITS ---
Progress Note: A&P Assessment and Plan (1) Small bowel obstruction: Code(s): K56.609 - Unspecified intestinal obstruction, unspecified as to partial versus complete obstruction Status: Acute Assessment and Plan: * SBFT showed delayed transit to colon around 4 hours, suggestive of ileus vs PSBO. Bowels are moving and she is tolerating clear liquids. * Will advance to full liquids. Okay to resume home medications. (2) Acute kidney injury: Code(s): N17.9 - Acute kidney failure, unspecified Status: Acute Assessment and Plan: * Improving Plan I have discussed the patient's case and plan of care with Dr. Brumfield. Subjective Subjective Date/Time Seen: 04/07/25 11:11 Patient reports: no new complaints, feels better, pain is less, flatus, bowel movement, nausea and afebrile Interval history: Patient's pain is improving. She had some mild epigastric pain earlier this morning that resolved. No pain at this time. She had some mild nausea with clear liquids at breakfast, but this resolved without issues. No vomiting. She had innumerable BMs yesterday. NG tube accidentally pulled out by patient yesterday afternoon. Exam Const: General: comfortable and no acute distress Orientation/consciousness: patient oriented x3 GI: Inspection: non-distended GI Palp: Yes Soft to palpation, No Tenderness to palpation present (GI), No Guarding due to palpation present (GI) and No Rebound tenderness present Auscultation: normal bowel sounds Objective Data Vital Signs Vital Signs: Vital Signs - 24 hr 04/06/25 12:00 04/06/25 14:00 04/06/25 16:00 Temperature 99.0 F Pulse Rate 76 74 74 Respiratory Rate 18 Blood Pressure 172/50 H Pulse Oximetry 97 Oxygen Delivery 04/06/25 20:00 04/06/25 20:00 04/06/25 22:00 Temperature 98.0 F Pulse Rate 78 74 Respiratory Rate 18 Blood Pressure 175/52 H Pulse Oximetry 96 Oxygen Delivery Room Air 04/07/25 00:00 04/07/25 00:37 04/07/25 04:00 Temperature 97.9 F Pulse Rate 75 81 76 Respiratory Rate 18 Blood Pressure 167/52 H Pulse Oximetry 100 Oxygen Delivery 04/07/25 06:00 Temperature 99.1 F Pulse Rate 74 Respiratory Rate 18 Blood Pressure 165/50 H Pulse Oximetry 99 Oxygen Delivery Intake/Output Intake/Output: Intake & Output 04/04/25 04/05/25 04/06/25 04/07/25 23:59 23:59 23:59 23:59 Intake Total 1050 2000 3400 1385.8 Output Total 150 100 Balance 900 1900 3400 1385.8 Meds/Results Medications: Active Medications Generic Name Dose Route Start Last Admin Trade Name Freq PRN Reason Stop Dose Admin Hydralazine HCl 10 mg 04/05/25 08:51 04/06/25 22:36 Hydralazine Hcl 20 Mg/Ml Vial IV PUSH 10 mg Q8H PRN Administration Blood Pressure - High Lactated Ringer's 1,000 mls @ 125 mls/hr 04/04/25 20:35 04/07/25 06:11 Lr - Lactated Ringers Iv IV CONT 125 mls/hr .Q8H FIDEL Administration Morphine Sulfate 2 mg 04/04/25 22:34 Morphine Sulfate (*Crx) 2 Mg/Ml Inj IV PUSH Q3H PRN Pain Rated 7-10 Ondansetron HCl 4 mg 04/04/25 20:32 Ondansetron Inj 4 Mg/2 Ml Vial IV PUSH Q4H PRN Nausea Pantoprazole Sodium 40 mg 04/05/25 09:00 04/07/25 10:00 Pantoprazole Sodium Iv 40 Mg Vial IV PUSH 40 mg Q12HR FIDEL Administration Radiology Results: ITS Impressions Head CT 04/04/25 19:29 IMPRESSION: No acute intracranial process. Abdomen/Pelvis CT 04/04/25 19:30 IMPRESSION: Small bowel obstruction, likely secondary to adhesion in the right lower quadrant. Abdomen X-Ray 04/06/25 07:20 Impression: 1: Small bowel obstruction. Small Bowel X-Ray 04/06/25 19:21 IMPRESSION: 1. Delayed small bowel transit time to the right abdominal ileocolic anastomosis with persistent mild dilation of multiple loops of small bowel which be consis tent with persistent ileus versus partial small bowel obstruction. Review of prior CT demonstrates no discrete transition point with intermittent gradual decrease in caliber of the distal small bowel where there is diffuse wall thickening which is more suggestive of an enteritis and associated ileus. Labs Labs: Laboratory Results - last 24 hr 04/07/25 05:22 WBC 13.4 H RBC 3.16 L Hgb 9.1 L Hct 28.2 L MCV 89.2 MCH 28.8 MCHC 32.3 RDW 19.1 H Plt Count 356 MPV 10.3 Sodium 133 L Potassium 3.6 Chloride 106 Carbon Dioxide 20 L Anion Gap 7 BUN 9 Creatinine 1.00 Estim Creat Clear Calc 41 Estimated GFR 53 L Glucose 108 Calcium 9.5 Total Bilirubin 0.3 AST 34 ALT 24 Alkaline Phosphatase 97 Total Protein 7.1 Albumin 3.6
[2025-04-07] MEDS: GABAPENTIN 300 MG CAPSULE 900 MG PO (21:11)
[2025-04-07] MEDS: LOSARTAN POTASSIUM 100 MG TABLET PO (21:12)
[2025-04-07] MEDS: ATORVASTATIN 20 MG TABLET PO (21:12)
[2025-04-08] VITALS (11 sets, daily range): BP systolic 128–150; BP diastolic 40–58; PULSE 53–79; RESP 16–18; TEMP 36.4–36.7; O2SAT 94–97
[2025-04-08] MEDS: GABAPENTIN 300 MG CAPSULE PO ×3 (06:12→21:08)
[2025-04-08 07:59] LABS: Hematocrit 27.6 % (37.0-47.0); Hemoglobin 9.0 g/dL (12.0-15.0); Mean Corpuscular HGB Conc 32.6 g/dl (32-36); Mean Corpuscular Hemoglobin 28.2 pg (26-34); Mean Corpuscular Volume 86.5 fl (80-100); Platelet Count Result 359 k/mm3 (150-375); Red Blood Count 3.19 M/mm3 (4.2-5.4); White Blood Count 14.6 K/mm3 (4.5-10.0)
--- NOTE | 2025-04-08 08:13 | PM.IMPN ---
Progress Note: A&P Assessment and Plan (1) Small bowel obstruction: Code(s): K56.609 - Unspecified intestinal obstruction, unspecified as to partial versus complete obstruction Status: Acute Assessment and Plan: Abdomen/pelvis CT: Small bowel obstruction, likely secondary to adhesion in the right lower quadrant. History of colon resection Lactic acid WNL. Blood cultures obtained on 04/04: NGTD NG tube discontinued Diet: Clear liquid diet, advance per surgery P.r.n. Anti emetics Monitor I&Os, vital signs, neuro status and patient is a fall risk Monitor serum electrolytes and CBC Continue NG decompression and bowel rest Obstructive series: Delayed small bowel transit time to the right abdominal ileocolic anastomosis with persistent mild dilation of multiple loops of small bowel which be consistent with persistent ileus versus partial small bowel obstruction. Review of prior CT demonstrates no discrete transition point with intermittent gradual decrease in caliber of the distal small bowel where there is diffuse wall thickening which is more suggestive of an enteritis and associated ileus. Surgery consulted No surgical indication at this time Advance diet as tolerated - likely d/c tomorrow if can tolerate full diet (2) Acute kidney injury: Code(s): N17.9 - Acute kidney failure, unspecified Status: Acute Assessment and Plan: BUN/Cr 1.45/28 with GFR 35 on admission, baseline WNL. Likely related to vomiting/diarrhea causing dehydration Continue LR 125 ml/hr for cocurrent SBO as patient is NPO Avoid nephrotoxic medications Renally dose medications Monitor I/O Resolved. BUN/Cr returned to WNL. (3) Anemia: Qualifiers: Anemia type: unspecified type Qualified Code(s): D64.9 - Anemia, unspecified Code(s): D64.9 - Anemia, unspecified Status: Acute Assessment and Plan: H/H 10.7/33.9 on admission, possibly related to dehydration secondary to vomiting and diarrhea as this is above patients baseline of 7-9. Received 1L NS bolus and was started on 125 ml/hr LR on admission likely causing dilution as well Denies hematuria, hematochezia, hematemesis, melena H/H 9.1/28.2 on am labs Iron panel: Iron 28, TIBC 302, % sat 9, and ferritin 29.4 Recently started on iron supplementation few days ago per B12 and Folate WNL (4) Hypertension: Code(s): I10 - Essential (primary) hypertension Status: Chronic Assessment and Plan: Chronic, continue home medications - spironolactone 25 mg daily and losartan 50 mg daily resumed - IV hydralazine PRN for SBP > 170 - blood pressures remain stable, continue to monitor (5) Atrial fibrillation: Qualifiers: Atrial fibrillation type: unspecified chronic Qualified Code(s): I48.20 - Chronic atrial fibrillation, unspecified Code(s): I48.91 - Unspecified atrial fibrillation Status: Chronic Assessment and Plan: Currently in sinus rhythm Amiodarone resumed Tele reviewed and no acute arrhythmias Continue to monitor, resume amiodarone when able Not on anticoagulation, history of watchman (6) Presence of Watchman left atrial appendage closure device: Code(s): Z95.818 - Presence of other cardiac implants and grafts Status: Acute (7) History of colon resection: Code(s): Z90.49 - Acquired absence of other specified parts of digestive tract Status: Acute Subjective Date/time seen: 04/08/25 08:13 Interval history: 80-year-old female with past medical history colon cancer status post colon resection, history of gastric tear, history of valve replacement, history of atrial fibrillation status post Watchman device, chronic anemia presents to the hospital for abdominal pain with nausea/vomiting and diarrhea. 04/08/2025 Patient sitting in bed at time of examination. Denies any chest pain, shortness a breath, nausea/vomiting or abdominal pain. Seen by General surgery, no surgical intervention needed at this time. Will advance diet as tolerated, plan for likely discharge tomorrow. Review of Systems Review of Systems: All systems reviewed & are unremarkable except as noted in HPI and below Exam Narrative: AF HR 66 RR 18 SPO2 99 BP 150/58 General: female in no acute respiratory distress who is nontoxic appearing, sitting up in chair HEENT: Normocephalic. Atraumatic. Extraocular movement intact. Sclera clear and anicteric. No facial asymmetry. NG tube in place. Chest: Lungs are clear to auscultation bilaterally. No wheezes or crackles. CV: Heart was regular rate and rhythm. Abd: Abdomen was soft. Nontender. Nondistended. Normoactive bowel sounds. Ext: No clubbing, cyanosis, or edema. DP pulses bilaterally. Neuro: Patient is alert. Speech is clear. Const: General: comfortable and no acute distress Other: A&O x3 HENMT: Mouth: Yes moist mucous membranes Eyes: Pupils: Equal, round and reactive pupils present Neck: Neck: supple Resp: Effort & Inspection: normal respiratory effort Auscultation: clear to auscultation bilaterally Cardio: Rate: regular rate Rhythm: regular rhythm Heart sounds: no gallops, Murmur heart sound present and no rubs GI: Other: Mild distension. Tenderness to palpation diffusely : General: Yes bladder normal to palpation Bimanual exam- vagina & uterus: bladder normal to palpation Neuro: Cranial nerves: Yes Equal, round and reactive pupils present Motor exam (neuro): 5/5 motor strength present throughout Extrem: Other: Trace pitting edema bilateral lower extremities Objective Data Vital Signs Vital Signs: Vital Signs - 24 hr 04/07/25 10:00 04/07/25 10:00 04/07/25 12:00 Temperature Pulse Rate 78 58 L Respiratory Rate Blood Pressure Pulse Oximetry Oxygen Delivery Room Air 04/07/25 14:00 04/07/25 16:00 04/07/25 20:00 Temperature 98.4 F Pulse Rate 64 82 Respiratory Rate 18 Blood Pressure 146/53 H Pulse Oximetry 99 Oxygen Delivery Room Air 04/07/25 20:00 04/07/25 21:10 04/08/25 00:00 Temperature 98.9 F Pulse Rate 66 64 58 L Respiratory Rate 16 Blood Pressure 181/55 H Pulse Oximetry 97 Oxygen Delivery 04/08/25 04:00 04/08/25 06:00 Temperature 97.7 F Pulse Rate 53 L 58 L Respiratory Rate 18 Blood Pressure 150/58 H Pulse Oximetry 97 Oxygen Delivery Intake/Output Intake/Output: Intake & Output 04/05/25 04/06/25 04/07/25 04/08/25 23:59 23:59 23:59 23:59 Intake Total 1999 3400 2165.8 500 Output Total 100 Balance 1900 3400 2165.8 500 Meds/Results Medications: Active Medications Generic Name Dose Route Start Last Admin Trade Name Freq PRN Reason Stop Dose Admin Amiodarone HCl 200 mg 04/08/25 09:00 Amiodarone Hcl 200 Mg Tablet PO DAILY [facility] Amlodipine Besylate 10 mg 04/07/25 21:00 04/07/25 21:12 Amlodipine Besylate 10 Mg Tablet PO 10 mg HS FIDEL Administration Atorvastatin Calcium 20 mg 04/07/25 21:00 04/07/25 21:12 Atorvastatin 20 Mg Tablet PO 20 mg HS FIDEL Administration Ferrous Sulfate 325 mg 04/08/25 09:00 Ferrous Sulfate [address] BY MOUTH DAILY [facility] Gabapentin 300 mg 04/08/25 06:00 04/08/25 06:12 Gabapentin 300 Mg Capsule PO 300 mg Q8HR FIDEL Administration Hydralazine HCl 10 mg 04/05/25 08:51 04/06/25 22:36 Hydralazine Hcl 20 Mg/Ml Vial IV PUSH 10 mg Q8H PRN Administration Blood Pressure - High Losartan Potassium 100 mg 04/07/25 21:00 04/07/25 21:12 Losartan Potassium 100 Mg Tablet PO 100 mg HS [facility] Administration Morphine Sulfate 2 mg 04/04/25 22:34 Morphine Sulfate (*Crx) 2 Mg/Ml Inj IV PUSH Q3H PRN Pain Rated 7-10 Nifedipine 60 mg 04/08/25 09:00 Nifedipine 30 Mg Tab.Er.24 PO DAILY [facility] Ondansetron HCl 4 mg 04/04/25 20:32 Ondansetron Inj 4 Mg/2 Ml Vial IV PUSH Q4H PRN Nausea Pantoprazole Sodium 40 mg 04/05/25 09:00 04/07/25 21:11 Pantoprazole Sodium Iv 40 Mg Vial IV PUSH 40 mg Q12HR FIDEL Administration Pantoprazole Sodium 40 mg 04/08/25 09:00 Pantoprazole 40 Mg Tablet PO QAM [facility] Spironolactone 12.5 mg 04/08/25 09:00 Spironolactone 12.5 Mg Tablet PO DAILY [facility] Radiology Results: ITS Impressions Head CT 04/04/25 19:29 IMPRESSION: No acute intracranial process. Abdomen/Pelvis CT 04/04/25 19:30 IMPRESSION: Small bowel obstruction, likely secondary to adhesion in the right lower quadrant. Abdomen X-Ray 04/06/25 07:20 Impression: 1: Small bowel obstruction. Small Bowel X-Ray 04/06/25 19:21 IMPRESSION: 1. Delayed small bowel transit time to the right abdominal ileocolic anastomosis with persistent mild dilation of multiple loops of small bowel which be consistent with persistent ileus versus partial small bowel obstruction. Review of prior CT demonstrates no discrete transition point with intermittent gradual decrease in caliber of the distal small bowel where there is diffuse wall thickening which is more suggestive of an enteritis and associated ileus. Labs Labs: Laboratory Results - last 24 hr 04/08/25 07:49 WBC 14.6 H RBC 3.19 L Hgb 9.0 L Hct 27.6 L MCV 86.5 MCH 28.2 MCHC 32.6 RDW 18.8 H Plt Count 359 MPV 9.5 Quality VTE Prophylaxis VTE prophylaxis: mechanical ordered
[2025-04-08] MEDS: AMIODARONE HCL 200 MG TABLET PO (08:16)
[2025-04-08] MEDS: PANTOPRAZOLE SODIUM IV 40 MG VIAL IV PUSH (08:16)
[2025-04-08] MEDS: PANTOPRAZOLE 40 MG TABLET PO (08:16)
[2025-04-08] MEDS: FERROUS SULFATE 325 MG TABLET DR BY MOUTH (08:16)
[2025-04-08 08:49] LABS: Alanine Aminotransferase 23 U/L (6-35); Albumin Level 3.6 g/dL (3.5-5.1); Alkaline Phosphatase 90 U/L (38-126); Anion Gap 9 mmol/L (4-12); Aspartate Amino Transferase 34 U/L (14-36); Bilirubin,Total 0.3 mg/dL (0.2-1.3); Blood Urea Nitrogen 9 mg/dL (7-17); Calcium 9.4 mg/dL (8.4-10.2); Carbon Dioxide 22 mmol/L (22-30); Chloride 108 mmol/L (98-107); Estimated CRCL calculation 44 ml/min; Estimated Glomerular Filt Rate 58; Glucose 105 mg/dL (65-110); Potassium 3.7 mmol/L (3.4-5.0); Sodium 139 mmol/L (137-145); Total Protein 7.2 g/dL (6.3-8.2)
--- NOTE | 2025-04-08 13:23 | P.PNGS_ITS ---
Progress Note: A&P Assessment and Plan (1) Small bowel obstruction: Code(s): K56.609 - Unspecified intestinal obstruction, unspecified as to partial versus complete obstruction Status: Acute Assessment and Plan: * Bowels are moving and tolerating liquids. * Will advance to a solid diet. * Okay to discharge from a surgical standpoint. We will sign off. No surgical f/u needed. (2) Acute kidney injury: Code(s): N17.9 - Acute kidney failure, unspecified Status: Acute Plan I have discussed the patient's case and plan of care with Dr. Brumfield. Subjective Subjective Date/Time Seen: 04/08/25 13:23 Patient reports: no new complaints, feels better, tolerating liquids well, flatus and bowel movement Exam Const: General: comfortable and no acute distress Orientation/consciousness: patient oriented x3 GI: Inspection: non-distended GI Palp: Yes Soft to palpation, No Tenderness to palpation present (GI), No Guarding due to palpation present (GI) and No Rebound tenderness present Auscultation: normal bowel sounds Objective Data Vital Signs Vital Signs: Vital Signs - 24 hr 04/07/25 14:00 04/07/25 16:00 04/07/25 20:00 Temperature 98.4 F Pulse Rate 64 82 Respiratory Rate 18 Blood Pressure 146/53 H Pulse Oximetry 99 Oxygen Delivery Room Air 04/07/25 20:00 04/07/25 21:10 04/08/25 00:00 Temperature 98.9 F Pulse Rate 66 64 58 L Respiratory Rate 16 Blood Pressure 181/55 H Pulse Oximetry 97 Oxygen Delivery 04/08/25 04:00 04/08/25 06:00 04/08/25 08:00 Temperature 97.7 F Pulse Rate 53 L 58 L Respiratory Rate 18 Blood Pressure 150/58 H Pulse Oximetry 97 Oxygen Delivery Room Air 04/08/25 08:00 04/08/25 08:16 Temperature Pulse Rate 61 66 Respiratory Rate Blood Pressure Pulse Oximetry Oxygen Delivery Intake/Output Intake/Output: Intake & Output 04/05/25 04/06/25 04/07/25 04/08/25 23:59 23:59 23:59 23:59 Intake Total 1999 3400 2165.8 500 Output Total 100 Balance 1900 3400 2165.8 500 Meds/Results Medications: Active Medications Generic Name Dose Route Start Last Admin Trade Name Freq PRN Reason Stop Dose Admin Amiodarone HCl 200 mg 04/08/25 09:00 04/08/25 08:16 Amiodarone Hcl 200 Mg Tablet PO 200 mg DAILY [facility] Administration Amlodipine Besylate 10 mg 04/07/25 21:00 04/07/25 21:12 Amlodipine Besylate 10 Mg Tablet PO 10 mg HS [facility]IDEL Administration Atorvastatin Calcium 20 mg 04/07/25 21:00 04/07/25 21:12 Atorvastatin 20 Mg Tablet PO 20 mg HS [facility]IDEL Administration Ferrous Sulfate 325 mg 04/08/25 09:00 04/08/25 08:16 Ferrous Sulfate [address] BY MOUTH 325 mg DAILY [facility] Administration Gabapentin 300 mg 04/08/25 06:00 04/08/25 06:12 Gabapentin 300 Mg Capsule PO 300 mg Q8HR [facility] Administration Hydralazine HCl 10 mg 04/05/25 08:51 04/06/25 22:36 Hydralazine Hcl 20 Mg/Ml Vial IV PUSH 10 mg Q8H PRN Administration Blood Pressure - High Losartan Potassium 100 mg 04/07/25 21:00 04/07/25 21:12 Losartan Potassium 100 Mg Tablet PO 100 mg HS [facility]IDEL Administration Morphine Sulfate 2 mg 04/04/25 22:34 Morphine Sulfate (*Crx) 2 Mg/Ml Inj IV PUSH Q3H PRN Pain Rated 7-10 Nifedipine 60 mg 04/08/25 09:00 04/08/25 08:16 Nifedipine 30 Mg Tab.Er.24 PO 60 mg DAILY [facility] Administration Ondansetron HCl 4 mg 04/04/25 20:32 Ondansetron Inj 4 Mg/2 Ml Vial IV PUSH Q4H PRN Nausea Pantoprazole Sodium 40 mg 04/05/25 09:00 04/08/25 08:16 Pantoprazole Sodium Iv 40 Mg Vial IV PUSH 40 mg Q12HR [facility]IDEL Administration Pantoprazole Sodium 40 mg 04/08/25 09:00 04/08/25 08:16 Pantoprazole 40 Mg Tablet PO 40 mg QAM [facility] Administration Spironolactone 12.5 mg 04/08/25 09:00 04/08/25 08:16 Spironolactone 12.5 Mg Tablet PO 12.5 mg DAILY [facility] Administration Radiology Results: ITS Impressions Head CT 04/04/25 19:29 IMPRESSION: No acute intracranial process. Abdomen/Pelvis CT 04/04/25 19:30 IMPRESSION: Small bowel obstruction, likely secondary to adhesion in the right lower quadrant. Abdomen X-Ray 04/06/25 07:20 Impression: 1: Small bowel obstruction. Small Bowel X-Ray 04/06/25 19:21 IMPRESSION: 1. Delayed small bowel transit time to the right abdominal ileocolic anastomosis with persistent mild dilation of multiple loops of small bowel which be consistent with persistent ileus versus partial small bowel obstruction. Review of prior CT demonstrates no discrete transition point with intermittent gradual decrease in caliber of the distal small bowel where there is diffuse wall thickening which is more suggestive of an enteritis and associated ileus. Labs Labs: Laboratory Results - last 24 hr 04/08/25 07:49 WBC 14.6 H RBC 3.19 L Hgb 9.0 L Hct 27.6 L MCV 86.5 MCH 28.2 MCHC 32.6 RDW 18.8 H Plt Count 359 MPV 9.5 Sodium 139 Potassium 3.7 Chloride 108 H Carbon Dioxide 22 Anion Gap 9 BUN 9 Creatinine 0.92 Estim Creat Clear Calc 44 Estimated GFR 58 L Glucose 105 Calcium 9.4 Total Bilirubin 0.3 AST 34 ALT 23 Alkaline Phosphatase 90 Total Protein 7.2 Albumin 3.6
[2025-04-08] MEDS: ATORVASTATIN 20 MG TABLET PO (21:08)
[2025-04-08] MEDS: LOSARTAN POTASSIUM 100 MG TABLET PO (21:08)
[2025-04-09] VITALS: PULSE 55
[2025-04-09 04:00] VITALS: PULSE 62
[2025-04-09] MEDS: GABAPENTIN 300 MG CAPSULE PO (05:27)
[2025-04-09 05:43] LABS: Hematocrit 28.7 % (37.0-47.0); Hemoglobin 9.1 g/dL (12.0-15.0); Mean Corpuscular HGB Conc 31.7 g/dl (32-36); Mean Corpuscular Hemoglobin 28.3 pg (26-34); Mean Corpuscular Volume 89.1 fl (80-100); Platelet Count Result 363 k/mm3 (150-375); Red Blood Count 3.22 M/mm3 (4.2-5.4); White Blood Count 12.7 K/mm3 (4.5-10.0)
[2025-04-09 05:58] LABS: Alanine Aminotransferase 20 U/L (6-35); Albumin Level 3.4 g/dL (3.5-5.1); Alkaline Phosphatase 81 U/L (38-126); Anion Gap 9 mmol/L (4-12); Aspartate Amino Transferase 27 U/L (14-36); Bilirubin,Total 0.3 mg/dL (0.2-1.3); Blood Urea Nitrogen 12 mg/dL (7-17); Calcium 9.2 mg/dL (8.4-10.2); Carbon Dioxide 22 mmol/L (22-30); Chloride 108 mmol/L (98-107); Estimated CRCL calculation 36 ml/min; Estimated Glomerular Filt Rate 45; Glucose 97 mg/dL (65-110); Potassium 3.4 mmol/L (3.4-5.0); Sodium 139 mmol/L (137-145); Total Protein 7.0 g/dL (6.3-8.2)
[2025-04-09 06:00] VITALS: BP 139/40; PULSE 62; RESP 18; TEMP 37.4; O2SAT 96
[2025-04-09 08:00] VITALS: PULSE 60
[2025-04-09 08:52] VITALS: PULSE 64
[2025-04-09] MEDS: PANTOPRAZOLE 40 MG TABLET PO (08:52)
[2025-04-09] MEDS: AMIODARONE HCL 200 MG TABLET PO (08:52)
[2025-04-09] MEDS: FERROUS SULFATE 325 MG TABLET DR BY MOUTH (08:52)
--- NOTE | 2025-04-09 11:44 | P.DS_ITS ---
DS: Admitting Diagnosis Discharge Date 04/09/2025 Admitting Diagnosis SBO NIRMALA Anemia HTN AFib Presence of watchman left atrial appendage closure device Hx colon resection DS: Discharge Diagnosis Discharge Diagnosis (1) Small bowel obstruction: Code(s): K56.609 - Unspecified intestinal obstruction, unspecified as to partial versus complete obstruction Status: Acute (2) Acute kidney injury: Code(s): N17.9 - Acute kidney failure, unspecified Status: Acute (3) Anemia: Qualifiers: Anemia type: unspecified type Qualified Code(s): D64.9 - Anemia, unspecified Code(s): D64.9 - Anemia, unspecified Status: Acute (4) Hypertension: Code(s): I10 - Essential (primary) hypertension Status: Chronic (5) Atrial fibrillation: Qualifiers: Atrial fibrillation type: unspecified chronic Qualified Code(s): I48.20 - Chronic atrial fibrillation, unspecified Code(s): I48.91 - Unspecified atrial fibrillation Status: Chronic (6) Presence of Watchman left atrial appendage closure device: Code(s): Z95.818 - Presence of other cardiac implants and grafts Status: Acute (7) History of colon resection: Code(s): Z90.49 - Acquired absence of other specified parts of digestive tract Status: Acute DS: Summary Hospital Course Reason for hospitalization: SBO NIRMALA Anemia HTN AFib Presence of watchman left atrial appendage closure device Hx colon resection Hospital Course: 80-year-old female with past medical history colon cancer status post colon resection, history of gastric tear, history of valve replacement, history of atrial fibrillation status post Watchman device, chronic anemia presents to the hospital for abdominal pain with nausea/vomiting and diarrhea. Not meeting sepsis criteria on admission. Patient had slight NIRMALA on admission which improved with IV fluids, likely secondary to dehydration related to diarrhea and vomiting. Patient anemic on admission, denied hematuria, hematochezia, melena. Anemia appears at baseline and remained stable throughout admission. Abdomen/pelvis CT showed small bowel obstruction, likely secondary to adhesion in the right lower quadrant. NG placed for bowel rest and surgery consulted. Obstructive series obtained adn showed delayed small bowel transit time to the right abdominal ileocolic anastomosis with persistent mild dilation of multiple loops of small bowel which be consistent with persistent ileus versus partial small bowel obstruction. Review of prior CT demonstrates no discrete transition point with intermittent gradual decrease in caliber of the distal small bowel where there is diffuse wall thickening which is more suggestive of an enteritis and associated ileus. Patients bowel function returned and her diet was advanced back to regular. She tolerated the normal diet denying abdominal pain, nausea and vomiting. Patient had no complaints at time of discharge denying chest pain, shortness a breath, palpitations, nausea/vomiting, abdominal pain. Patient discharged home with family in a stable condition. She is to follow up with her primary care 1 week. Status at Discharge Functional status at discharge: uses cane/walker Time Spent with Patient Time attestation: Total time spent providing and/or coordinating discharge services: Time spent: Greater than 30 minutes Exam Narrative: AF HR 62 RR 18 Spo2 96 BP 139/40 General: female in no acute respiratory distress who is nontoxic appearing, sitting up in bed HEENT: Normocephalic. Atraumatic. Extraocular movement intact. Sclera clear and anicteric. No facial asymmetry. Chest: Lungs are clear to auscultation bilaterally. No wheezes or crackles. CV: Heart was regular rate and rhythm. Abd: Abdomen was soft. Nontender. Nondistended. Normoactive bowel sounds. Ext: No clubbing, cyanosis, or edema. DP pulses bilaterally. Neuro: Patient is alert. Speech is clear. DS: Data Data Completed and Pending Completed studies during hospitalization: small bowel xr abdomen xr abdomen xr abdomen/pelvis ct head ct Labs on day of discharge: Labs from last 24 hours 04/09/25 05:13 WBC 12.7 H RBC 3.22 L Hgb 9.1 L Hct 28.7 L MCV 89.1 MCH 28.3 MCHC 31.7 L RDW 18.7 H Plt Count 363 MPV 10.0 Sodium 139 Potassium 3.4 Chloride 108 H Carbon Dioxide 22 Anion Gap 9 BUN 12 Creatinine 1.15 H Estim Creat Clear Calc 36 Estimated GFR 45 L Glucose 97 Calcium 9.2 Total Bilirubin 0.3 AST 27 ALT 20 Alkaline Phosphatase 81 Total Protein 7.0 Albumin 3.4 L Preliminary micro results at discharge 04/04/25 21:31 Blood Culture - Preliminary Blood 04/04/25 21:31 Blood Culture - Preliminary Blood Discharge Plan Discharge Attending physician on discharge: Annmarie Porter Consulting providers: Ayanna Hicks; Ugo Thayer Discharging Clinician: Ayanna Hicks Anticipated Discharge Date/Time: 04/09/25 11:24 Patient Disposition: Home Activity: as tolerated Diet: as tolerated and low fiber Discharge Instructions: Discharge disposition: Patient admitted to the hospital for concern of small bowel obstruction Evaluated by surgery and no acute intervention required Continue low fiber diet, attached is information on this medication Continue to monitor stool Patient remains anemic however blood levels remain stable Continue iron supplementation as prescribed Monitor blood pressures Take caution while standing, rising, or moving Change positions slowly taking a break between each position change If you standing feel dizzy sit back down and take a break Encouraged to continue with yearly vaccinations Return to the emergency department if he developed sudden shortness of breath, chest pain, nausea, vomiting, upset stomach or intractable diarrhea Return to the emergency department if you develop fever greater than 100.5 Follow-up with the primary care physician within 1-2 weeks Thank you for choosing [facility] for your healthcare needs Patient Instructions: Low Fiber Diet (DC), Iron Deficiency Anemia (GEN), Bowel Obstruction (DC) Patient Language: Nigerien Stand Alone Forms: General Discharge Information Follow-up/Referrals: Bean,Oralia Hernandez, [employer] [Primary Care Provider] - 1 Week Discharge Medications: Continued gabapentin 300 mg PO TID losartan 100 mg tablet 100 mg PO HS acetaminophen 500 mg Tablet 1,000 mg PO Q6H PRN (Reason: Pain) cholecalciferol (vitamin D3) 50 mcg (2,000 unit) Capsule 50 mcg PO DAILY cetirizine 10 mg tablet 10 mg PO DAILY amiodarone 200 mg tablet 200 mg PO DAILY montelukast 10 mg tablet 10 mg PO DAILY nifedipine 30 mg tablet extended release 60 mg PO DAILY spironolactone 25 mg tablet 12.5 mg PO DAILY omeprazole 20 mg capsule,delayed release(DR/EC) 20 mg PO DAILY ferrous sulfate [Sky-Time] 325 mg (65 mg iron) tablet 325 mg PO DAILY fluticasone propionate 50 mcg/actuation spray,suspension 1 spray INTRANASAL Q12H PRN (Reason: nasal congestion) atorvastatin 20 mg tablet 20 mg PO HS amlodipine 10 mg tablet 10 mg PO HS multivitamin [Daily Multi-Vitamin] Tablet 1 tablet PO DAILY Discontinued rosuvastatin 20 mg tablet 20 mg PO DAILY Date of admission: 04/04/25 20:32 Primary Care Provider: BeanOralia Admitting Provider: Maryellen Elizabeth Attending physician on admission: Maryellen Elizabeth Condition: Stable Hospitalist MIPS Heart Failure (Exclusion) Patient has history of Heart Transplant or Left Ventricular Assistive Device?: No IF YES, STOP HERE Heart Failure (Qualifier) Patient has current or prior documentation of LVEF less than or equal to 40%, or mod/servere depressed LVSF?: No IF NO, STOP HERE
[2025-04-09 12:00] VITALS: PULSE 60
== END 2025-04-09 12:31 | disposition home or self-care (01) | DRG 389 ==
LOC: ANHED 20:08 → ANH3MED 21:09
PROVIDERS: Emergency Medicine; Admitting Provider General Practice; Emergency Provider General Practice; Visit Provider Student in an Organized Health Care Education/Training Program
DX: K56.50 Intestinal adhesions [bands], unspecified as to partial versus complete obstruction (principal); G93.40 Encephalopathy, unspecified; I48.20 Chronic atrial fibrillation, unspecified; N17.9 Acute kidney failure, unspecified; D64.9 Anemia, unspecified; E86.0 Dehydration; I10 Essential (primary) hypertension; Z95.818 Presence of other cardiac implants and grafts; Z90.49 Acquired absence of other specified parts of digestive tract; Z85.038 Personal history of other malignant neoplasm of large intestine; Z95.2 Presence of prosthetic heart valve; Z87.891 Personal history of nicotine dependence
CPT/HCPCS: 36415; 70450; 74019; 74177; 74250; 80053; 81003; 82565; 82607; 82728; 82746; 83540; 83550; 83605; 83690; 83735; 84100; 84145; 84484; 85025; 85027; 85610; 85730; 87040; 93005; 96361; 96374; 96375; 96376; 97161; 99285; A9270; J0360; J0692; J2270; J2405; J2470; J3373; J7030; J7120; Q9967